=== PATIENT | female | born 1965 | race African-American/Black ===

== ENCOUNTER 2022-02-15 07:15 | Outpatient (CLI) | payer BC, SELFPAY ==
[2022-02-15 07:49] LABS: Anion Gap 2 mmol/L (8-16); Blood Urea Nitrogen 12 mg/dL (7-17); Calcium 10.5 mg/dL (8.4-10.2); Carbon Dioxide 32 mmol/L (22-30); Chloride 106 mmol/L (98-107); Estimated Glomerular Filt Rate > 60; Glucose 110 mg/dL (65-110); Sodium 140 mmol/L (137-145)
== END 2022-02-15 07:16 | disposition home or self-care (01) ==
LOC: ANHSURGERY 07:20
PROVIDERS: Anesthesiology; PCP Internal Medicine; Visit Provider Obstetrics & Gynecology
DX: Z01.812 Encounter for preprocedural laboratory examination (principal); R35.89 Other polyuria
CPT/HCPCS: 36415; 80048

== ENCOUNTER 2022-02-22 02:06 | Day surgery (SDC) | payer BC, SELFPAY ==
[2022-02-13 10:20] VITALS: BMI 56.3
--- NOTE | 2022-02-13 10:51 | PC.NURSE ---
Report to the Outpatient Waiting Room, entrance under the green pavilion located off [facility], at time 0600 on date _02/22/22. OR Time: 0730_. - You and your visitor will be asked a series of questions to screen for COVID 19 for your protection. - Only one visitor is allowed at this time. - The patient visitor is requested to leave or wait in car when not with patient. - A mask is required within the hospital. Patients may have clear liquids (water, carbonated beverages, clear teas, apple juice) until 3 hours prior to surgery with a maximum of 20 ounces. - No food from midnight until time of surgery - Infants may have breast milk until 4 hours before surgery, formula 6 hours prior to surgery. - Children will be allowed to drink immediately following surgery. If applicable, please bring a bottle or sippy cup to assist with drinking. Juice, water, soda, and popsicles are readily available. For infants on formula, please bring formula the day of surgery. Pacifiers are allowed. Take the following medications with a SIP of water the morning of surgery: albuterol, timolol Medications to discontinue per physician vitamin_ Date to take last dose 02/22/22 Patient to hold metformin and lisinopril that morning(usually takes them in the afternoon) Please no make-up, nail sami, hairspray, perfume, deodorant, or body powder the day of surgery. No jewelry (including any body piercings) or valuables the day of surgery, leave them at home. Please take a shower or bath the night before, or the morning of, surgery with an antibacterial soap. Wear comfortable, loose fitting clothing. Children are encouraged to wear pajamas. - Jewelry must be removed prior to entering the operating room. Rings and piercings that are not removed may be cut off. - The hospital will not accept responsibility for valuables. - Please leave all valuables, including medications, at home the day of surgery. If you are going home after surgery, a licensed paratransit driver must drive you home. - NO public transportation without another adult. - We recommend that an adult stay with you for 24 hours following discharge. - We also recommend that you do not drive, make important decision, drink alcoholic beverages, or take any drugs that were not prescribed by your health care provider for at least 24 hours after your discharge time. For Pediatric surgeries, we recommend two adults accompany the child home (only one inside the building at this time). Follow any additional instructions given to you from your surgeon. If you or anyone in your household have experienced Covid symptoms in the past week, please notify your surgeon or the nurse liaison at the phone number below for possible testing. Telephone instructions given to Carie Bartlett and asked if any additional questions and then verbalized understanding. Patient advised to call surgeon office or pre surgery nurse liaison [phone] if any additional questions.
--- NOTE | 2022-02-21 10:16 | P.PNAN_ITS ---
Anes - Initial Pre Proc Eval Procedure: Operation Date: 02/22/22 07:30 Proposed Procedures p Hysteroscopy Dilation and Curettage with Possible Myosure - Richard Guzmán MD Date/Time: 02/21/22 10:16 Surgeon: Richard Guzmán MD Pre Op Diagnosis: post menopausal bleeding Patient Data Age: 56 Gender: F Height: 1.75 m Weight: 173 kg Allergies Allergy/AdvReac Type Severity Reaction Status Date / Time erythromycin base Allergy Mild Hives Verified 02/15/22 10:06 shellfish derived Allergy Mild Swelling Verified 02/22/22 06:08 Tetracyclines Allergy Mild Itching Verified 02/15/22 10:06 aspirin AdvReac Intermediate Unknown Verified 02/22/22 06:08 Penicillins AdvReac Unknown Unknown Verified 02/22/22 06:08 Home Medications Medication Instructions Recorded Confirmed Type albuterol sulfate 90 mcg/actuation 1 puff inhalation Q4H PRN Allergy 01/10/22 02/22/22 History aerosol inhaler (Ventolin HFA) Symptoms furosemide 20 mg tablet 20 mg PO QAM 01/10/22 02/22/22 History lisinopril 10 mg tablet 10 mg PO DAILY 01/10/22 02/22/22 History timolol maleate 0.5 % eye drops 1 drp EACH EYE Q12H 01/10/22 02/22/22 History vitamins A,C,C-vclp-siuncc 14,320 1 cap PO BID 02/13/22 02/22/22 History unit-226 mg-200 unit capsule (PreserVision AREDS) pantoprazole 40 mg tablet,delayed 40 mg PO BID 02/15/22 02/22/22 History release Patient hx anesthesia problems: none Family hx anesthesia problems: none Results Review: All pre-operative results and documents have been reviewed as part of the pre- operative evaluation. [facility] Past Medical History Medical History Arthritis Chronic GERD History of miscarriage Hypertension Morbid obesity with BMI of 50.0-59.9, adult GARY (obstructive sleep apnea) Postmenopausal bleeding Thyroid disorder Surgical History Surgical History H/O breast surgery History of cholecystectomy S/P dilation and curettage S/P removal of parathyroid gland Total knee replacement status [place] teeth extracted Family History Family History Other Cervical cancer Diabetes mellitus Hypertension Social History Social History Smoking status: Never smoker Alcohol intake: never Substance use: never Living arrangements: with family Spiritual care concerns: No Anes - Eval Final PreProcedure Day of Procedure 02/21/22 10:16 Patient weight: super morbidly obese Heart: regular rate and rhythm Lungs: clear to auscultation and normal air movement Airway: Mallampati scale class II Neurological: alert and oriented Last oral intake: >/= 8 hours ASA classification: III Emergent: no Anesthetic plan: proceed Anesthesia type and monitoring: general LMA Results Review: All pre-operative results and documents have been reviewed as part of the pre- operative evaluation. Informed Consent: The patient's anesthetic plan and its attendant risks and benefits were discussed with the patient/family/POA. Questions were solicited and answers provided to the satisfaction of the patient/family/POA.
--- NOTE | 2022-02-21 22:10 | PM.IMHP ---
H&P: HPI History of Present Illness Date/Time: 02/21/22 22:10 Chief Complaint: Postmenopausal bleeding Narrative: Patient is postmenopausal and presented with spotting in September/Oct and has since resolved. Ultrasound in December showed fibroid uterus which she has a known history of fibroids and also showed endometrial cavity distortion possible submucous fibroid. She was recommended for endometrial sampling due to postmenopausal bleeding.. She could not tolerate endometrial biopsy in office and was recommended for D and C hysteroscopy. She has been cleared for surgery by her support services coordinator. She has been informed that if endometrial tissue is abnormal then may be advised on further more extensive procedure. Review of Systems Review of Systems: All systems reviewed & are unremarkable except as noted in HPI and below Constitutional: Constitutional: Reports no additional constitutional complaints Eyes: Eyes: Reports no additional eye complaints Cardiovascular: Cardiovascular: Reports no additional cardiovascular complaints Respiratory: Respiratory: Reports no additional respiratory complaints Gastrointestinal: Gastrointestinal: Reports no additional gastrointestinal complaints Genitourinary: Genitourinary: Reports no additional female genitourinary complaints and Reports as per HPI Integumentary/Breasts: Skin/Breast: Reports system reviewed and no additional complaints, except as docu Neurologic: Reports system reviewed and no additional complaints, except as documented Psychiatric: Psychiatric: Reports no additional psychiatric complaints Hematologic/Lymphatic: Hematologic/Lymphatic: Reports no additional hematologic/lymphatic complaints COUNTS INCLUDE 234 BEDS AT THE [facility] Past Medical History Medical History Arthritis Chronic GERD History of miscarriage Hypertension Morbid obesity with BMI of 50.0-59.9, adult GARY (obstructive sleep apnea) Postmenopausal bleeding Thyroid disorder Surgical History Surgical History H/O breast surgery History of cholecystectomy S/P dilation and curettage S/P removal of parathyroid gland Total knee replacement status [place] teeth extracted Family History Family History Other Cervical cancer Diabetes mellitus Hypertension Social History Social History Smoking status: Never smoker Alcohol intake: never Substance use: never Spiritual care concerns: No Meds Home Medications and Allergies Home Medications Medication Instructions Recorded Confirmed Type albuterol sulfate 90 mcg/actuation 1 puff inhalation Q4H PRN Allergy 01/10/22 02/13/22 History aerosol inhaler (Ventolin HFA) Symptoms furosemide 20 mg tablet 20 mg PO QAM 01/10/22 02/13/22 History lisinopril 10 mg tablet 10 mg PO DAILY 01/10/22 02/13/22 History timolol maleate 0.5 % eye drops 1 drp EACH EYE Q12H 01/10/22 02/13/22 History vitamins A,C,Q-goyx-bkmrxn 14,320 1 cap PO BID 02/13/22 02/13/22 History unit-226 mg-200 unit capsule (PreserVision AREDS) pantoprazole 40 mg tablet,delayed 40 mg PO QAM 02/15/22 History release Allergies Allergy/AdvReac Type Severity Reaction Status Date / Time erythromycin base Allergy Mild Hives Verified 02/15/22 10:06 shellfish derived Allergy Mild Unknown Verified 02/15/22 10:06 Tetracyclines Allergy Mild Itching Verified 02/15/22 10:06 Penicillins AdvReac Unknown Unknown Verified 02/15/22 10:06 Exam Const: General: comfortable and no acute distress Orientation/consciousness: oriented to person, oriented to place and oriented to time Eyes: General: appearance normal, both eyes and all related structures Neck: Neck: normal visual inspection Resp: Effort & Inspection: normal respiratory effort Auscultation: clear to auscultation bilaterally Cardio: Rate:
[2022-02-22 06:14] VITALS: BP 143/70; PULSE 51; RESP 18; TEMP 36.3; O2SAT 100
[2022-02-22] MEDS: ACETAMINOPHEN 500 MG TABLET 1000 MG PO (06:39)
[2022-02-22] MEDS: LACTATED RINGERS 1,000 ML 30 ML IV CONT (06:39)
--- NOTE | 2022-02-22 07:16 | WPDHPUPDATE1 ---
History and Physical Update Update Date/Time: 02/22/22 07:16 History and Physical has been reviewed, including an updated exam of the patient. There are NO changes in the patient's condition. Risks, benefits, and alternatives have been discussed and questions answered. Patient agrees to proceed with procedure.
[2022-02-22] MEDS: ceFAZolin 3 GM/D5W 100 ML 100 ML IVPB (07:26)
[2022-02-22] MEDS: LIDOCAINE HCL 1% LOCAL INJ 20 ML VIAL 10 ML INFILTRATE (07:47)
[2022-02-22 08:05] VITALS: BP 129/79; PULSE 52; RESP 16; O2SAT 98
--- NOTE | 2022-02-22 08:25 | W.PM.PROC2 ---
Procedure Note - Detailed Date of Procedure 02/22/22 Pre-op Diagnosis post menopausal bleeding fibroid uterus Post-op Diagnosis Same Procedure Performed Diagnostic hysteroscopy and dilation and curettage Surgeon Richard Guzmán MD Anesthesia MAC and Local Indications Postmenopausal spotting and bleeding unable to tolerate office endometrial biopsy for endometrial sampling. Findings uterus sound initially to 12 then 6. Cavity atrophic. Scant tissue obtained with curette and endocervical sampling. Description of Procedure After informed consent was obtained patient was taken to the operating room and adequate IV sedation was administered. Attention was turned to the vagina. Speculum was inserted. Single-tooth tenaculum placed on the anterior lip of the cervix. The uterus was sounded initially to 12 cm and a second sound 6cm. The cervix was dilated to an 8 Astudillo dilator. The hysteroscope was inserted into the cavity. The findings were an atrophic appearing uterine cavity. At the mid to right side of cavity there was tunnel appearance possibly from the first sound. No bleeding. No lesion. The hysteroscope was removed. The cavity was curetted and minimal tissue obtained. Tenaculum removed. Hemostasis noted. Sponge count correct. The patient taken to recovery in stable condition. Estimated Blood Loss 5 Drains No Packing No Pathology Yes (endometrial curettings and endocervical curettings) Complications No immediate complications Condition Stable Disposition Same day [facility] Billing Surgery - Charge Forward: Surgery Billing
[2022-02-22 08:35] VITALS: BP 156/82; PULSE 42; RESP 16
[2022-02-22 09:05] VITALS: BP 137/66; PULSE 41; RESP 14
[2022-02-22 09:35] VITALS: BP 112/58; PULSE 40; RESP 16
== END 2022-02-22 09:40 | disposition home or self-care (01) ==
PROVIDERS: PCP Internal Medicine; Visit Provider Obstetrics & Gynecology
PROC: 0U5B8ZZ Destruction of Endometrium, Via Natural or Artificial Opening Endoscopic (ICD-10-PCS; CPT 58563; principal; 2022-02-22 07:30)
DX: N95.0 Postmenopausal bleeding (principal); D25.9 Leiomyoma of uterus, unspecified; K21.9 Gastro-esophageal reflux disease without esophagitis; I10 Essential (primary) hypertension; G47.33 Obstructive sleep apnea (adult) (pediatric); E66.01 Morbid (severe) obesity due to excess calories; Z68.43 Body mass index [BMI] 50.0-59.9, adult; Z96.659 Presence of unspecified artificial knee joint; E07.9 Disorder of thyroid, unspecified
CPT/HCPCS: 58558; 88305; A9270; J0690; J1100; J1885; J2250; J2405; J2704; J3010; J7030; J7120

== ENCOUNTER 2025-02-18 12:48 | Outpatient (CLI) | payer BC, SELFPAY ==
--- NOTE | ~2025-02-18 | US_ITS ---
Pelvic ultrasound. Clinical History: Postmenopausal bleeding Technique: Realtime transabdominal scanning of the pelvis was performed. Color flow Doppler and Doppl er spectral analysis were performed. Findings: The uterus is anteverted, and measures 11.0 x 9.2 x 9.6 cm. The endometrial stripe has a t hickness of 6 mm. Probable calcified fibroid present posteriorly measuring 2.9 cm in diameter. Additi onal calcified fibroid the posterolateral measures 4.4 cm. Interval calcified fibroid measures 2.8 cm . Probable additional anterior fibroid measures 3.0 cm.. Neither ovary seen. No other adnexal mass seen. There is no evidence of free fluid in the cul de sac. Impression: Multiple uterine fibroids, as detailed above. Endometrial stripe is upper limits of normal in thickness. Reviewed, dictated and finalized at location . Impression: Multiple uterine fibroids, as detailed above. Endometrial stripe is upper limits of normal in thickness.
== END 2025-02-18 12:49 | disposition home or self-care (01) ==
PROVIDERS: PCP Internal Medicine; Visit Provider Nurse Practitioner Family
DX: N95.0 Postmenopausal bleeding (principal); D25.9 Leiomyoma of uterus, unspecified
CPT/HCPCS: 76856

== ENCOUNTER 2025-05-22 00:54 | Day surgery (SDC) | payer BC, SELFPAY ==
--- OUTSIDE RECORDS SUMMARY | 2019-04-23 04:41 | XMS_ITS | Continuity of Care Document ---
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 Role Phone Nilam Kenney MD Unavailable Unavailable Allergies, Adverse Reactions, Alerts Substance Reaction Status Criticality amoxicillin Active No Information tetracycline Active No Information erythromycin base Active No Informa tion Medications Medication Instructions Dosage Effective Dates (start - stop) Status Comments tramadol 50 mg tablet take 1 tablet by oral route every 12 hours as needed 50 MG - Active lisinopril 20 mg-hydrochlorothiaz radu 12.5 mg tablet take 1 tablet by oral route every day 1.00 tablet - Active furosemide 20 mg tablet take 1 tablet by oral route every day 20 MG - Active Advance Directives Directive Yes / No Effective Date File Name No Information Encounters Encounter Description Practice Location Reason(s) For Visit Diagnoses Date Provider Providers Copied on Encounter [facility], [address], [place], [place], [id number], tel:[phone] [facility] No Information [facility]. [address] [address], [id number] , . [phone] [facility], [address], [place], [place], [address], tel:[phone] [facility] No Information [facility]. [address], [place], [place], [id number] , . tel:[phone] [facility], [address], [place], [place], [id number], [place] tel:[phone] [facility] Bilateral chronic knee painPain in left kneeOther chronic painPrimary osteoarthritis of both knees [facility] [address] [address], [place], [place], [id number] , [place]. tel: [phone] Referring Provider: Scott Cortez [address], [place], [address] . tel:[phone] Family History Family Member Type Diagnosis Age At Onset No Information Payers Payer name Insurance type Covered libertarian ID Authoriza tion(s) No Information Social History Type Description Quantity Date Captured Comments Alcohol Use Details Unknown Caffeine Use Details Unknown Tobacco Use Status No Information Smoking Status No Information Sex Female Chief Complaint And Reason For Visit No Information Reason For Referral Reason For Referral No Information Plan Of Treatment Date Type Action Status Future Order: Radiology Order X- RAY EXAM OF KNEE, A/P & LAT Bilateral ([id number]), Sent on: Sent History Of Present Illness Encounter Date Complaint History Of Prese nt Illness No Information Functional Status Date Functional Assessmen t No Information Instructions Date Instruction Additional Infor mation No Information Assessments Type Assessment Date No Information Patient Care Teams Name Effective Dates (start - stop) Status Members No Information
[2025-05-11 15:04] VITALS: BMI 50.3
--- NOTE | 2025-05-11 15:05 | PC.NURSE ---
[facility] has started construction of its new state of the art ER which will open Spring 2026. With this, we anticipate parking may be a challenge for some our surgical patients and families. Parking spaces are limited but are available for all Surgical, obstetrics, and ER patients sharing this lot. If you arrive and find you are having a hard time finding a parking space, please note that we understand the challenges, please drive around the hospital and park near Hospital Entrance 1. When you enter this entrance, you can ask a volunteer to direct or take you back to the surgical waiting area to check in. We appreciate everyone?s understanding of these expected challenges while we build for your future. Report to the Outpatient Waiting Room, entrance under the green pavilion located off [facility] [address], at time _0600_ on date _[phone]_. Planned Procedure Time: _0730_.? Time changes happen often and if your time is changed the preop area will call you the afternoon before. - You and your visitor will be asked to self-screen and do not enter if you have any COVID symptoms. Please call surgeon if you need to reschedule. - A mask is optional within the hospital at this time. Patients may have clear liquids (water, carbonated beverages, clear teas, apple juice) until 3 hours prior to surgery with a maximum of 20 ounces. - No food from midnight until time of surgery and no smoking, or chewing tobacco (or any form of nicotine). No chewing gum, candy or mints. Take only the following medications with a SIP of water on the morning of surgery: ___eye drops and if needed may use inhaler.___ DO NOT STOP ANY OF YOUR OTHER PRESCRIPTION MEDICATIONS PRIOR TO SURGERY EXCEPT THE FOLLOWING Hold all vitamins and supplements for 3 days per anesthesiologist. Medications to discontinue per physician Date to take last dose Please no make-up, nail belizean, hairspray, perfume, deodorant, or body powder the day of surgery.? No jewelry (including any body piercings) or valuables the day of surgery, leave them at home.? Please take a shower or bath the night before, or the morning of, surgery with an antibacterial soap.? Wear comfortable, loose fitting clothing.? - Jewelry must be removed prior to entering the operating room.? Rings and piercings that are not removed may be cut off. - The hospital will not accept responsibility for valuables.? - Please leave all valuables, including medications, at home the day of surgery. If you are going home after surgery, a licensed jeep driver must drive you home.? - NO public transportation without another adult if you receive anesthesia. - We recommend that an adult stay with you for 24 hours following discharge. - We also recommend that you do not drive, make important decision, drink alcoholic beverages, or take any drugs that were not prescribed by your health care provider for at least 24 hours after your discharge time. Follow any additional instructions given to you from your surgeon. Telephone instructions given to __Carie___and asked if any additional questions and then verbalized understanding. Patient advised to call surgeon office or pre surgery nurse liaison [phone] if any additional questions.
--- OUTSIDE RECORDS SUMMARY | 2025-05-22 00:58 | XMS_ITS | Encounter Summary ---
Author Organization [facility] Facility Care Team Providers Care Vice President Business Development Name Role Phone Roula Dutton MD Primary Care Provider [phone] Roula Dutton MD Primary Care Provider [phone] Rodrigue Munoz MD Primary Care Provider [phone] Ashli Sosa MD Unavailable [phone] Radhika Hannon MD Primary Care Provider + [phone] Scot Gibson MD Primary Care Provider [phone] Radihka Hannon MD Primary Care Provider + [phone] Encounter Details Date Type Department Care Team (Latest Contact Info) Description 11/24/2015 Orders Only [facility]CON[facility] ProviderAriana MD [address] [place] [id number] Social History Tobacco Use Types Packs/Day Years Used Date Smoking Tobacco: Never Assessed Comments Unknown Sex and Gender Information Value Date Recorded Sex Assigned at Not on file Legal 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 us Historical Provider Final Res ult documented in this encounter Visit Diagnoses Not on filedocumented in this encounter Additional Health Concerns Infection Onset Date Last Indicated Resolved Time COVID: Suspected 03/04/2022 03/04/2022 03/04/2022 1:17 PM CDT COVID: Suspected 03/13/2022 03/13/2022 03/14/2022 3:05 AM CDT documented as of this encounter Care Teams Vice President Business Development Relationship Specialty Start Date End Date Roula Dutton MD [address] [place] [id number] PCP - General 02/08/17 08/09/17 Roula Dutton MD [address] [place] [id number] PCP - General 08/10/17 11/11/17 Rodrigue Munoz MD [address] [place] [id number] PCP - General 11/12/17 03/13/18 Radhika Hannon MD [address] [facility] [address] [place] [address] PCP - General Internal Medicine 03/14/18 10/09/22 Scot Gibson MD [address] [facility] [address] [place] [address] PCP - General Endocrinology Diabetes & Metabolism 10/10/22 08/27/24 Radhika Hannon MD [address] [facility] [address] [place] [address] PCP - General Internal Medicine 08/28/24 Ashli Sosa MD [address] [place] [id number] Referring Physician Obstetrics and Gynecology 01/23/18 documented as of this encounter
--- OUTSIDE RECORDS SUMMARY | 2025-05-22 00:58 | XMS_ITS | Encounter Summary ---
Author Organization [facility] Facility Care Team Providers Care Emt I/99 Name Role Phone Roula Dutton MD Primary Care Provider + [phone] Roula Dutton MD Primary Care Provider + [phone] Rodrigue Munoz MD Primary Care Provider [phone] Ashli Sosa MD Unavailable [phone] Radhika Hannon MD Primary Care Provider +- [phone] Scot Gibson MD Primary Care Provider [phone] Radhika Hannon MD Primary Care Provider + [phone] Encounter Details Date Type Department Care Team (Latest Contact Info) Description 07/31/2015 Orders Only [facility] CLINCONV ProviderAriana MD [address] [place] [address] Social History Tobacco Use Types Packs/Day Years Used Date Smoking Tobacco: Never Assessed Comments Unknown Sex and Gender Information Value Date Recorded Sex Assigned at Not on file 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 us Historical Provider Final Res ult documented in this encounter Visit Diagnoses Not on filedocumented in this encounter Additional Health Concerns Infection Onset Date Last Indicated Resolved Time COVID: Suspected 03/04/2022 03/04/2022 03/04/2022 1:17 PM CDT COVID: Suspected 03/13/2022 03/13/2022 03/14/2022 3:05 AM CDT documented as of this encounter Care Teams Emt I/99 Relationship Specialty Start Date End Date Roula Dutton MD [address] [place] [address] PCP - General 02/08/17 08/09/17 Roula Dutton MD [address] [place] [address] PCP - General 08/10/17 11/11/17 Rodrigue Munoz MD [address] [place] [address] PCP - General 11/12/17 03/13/18 Radhika Hannon MD [address] [facility] [address] [place] [address] PCP - General Internal Medicine 03/14/18 10/09/22 Scot Gibson MD [address] [facility] [address] [place] [address] PCP - General Endocrinology Diabetes & Metabolism 10/10/22 08/27/24 Radhika Hannon MD [address] [facility] [address] [place] [address] PCP - General Internal Medicine 08/28/24 Ashli Sosa MD [address] [place] [address] Referring Physician Obstetrics and Gynecology 01/23/18 documented as of this encounter
--- OUTSIDE RECORDS SUMMARY | 2025-05-22 00:58 | XMS_ITS | Encounter Summary ---
Author Organization [facility] Facility Care Team Providers Care Law Clerk Name Role Phone Roula Dutton MD Primary Care Provider + [phone] Roula Dutton MD Primary Care Provider + [phone] Rodrigue Munoz MD Primary Care Provider [phone] Ashli Sosa MD Unavailable [phone] Radhika Hannon MD Primary Care Provider + [phone] Scot Gibson MD Primary Care Provider [phone] Radhika Hannon MD Primary Care Provider + [phone] Encounter Details Date Type Department Care Team (Latest Contact Info) Description 01/22/2017 Orders Only [facility] CLINCONV ProviderAriana MD [address] [place] [address] Social History Tobacco Use Types Packs/Day Years Used Date Smoking Tobacco: Never Assessed Comments Unknown Sex and Gender Information Value Date Recorded Sex Assigned at Not on file 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 us Historical Provider Final Res ult * PROCEDURE - RESULT (01/22/2017 12:00 AM CDT) Narrative 01/22/2017 12:00 AM CDT Ordered by an unspecified provider. Historical Provider Final Res ult documented in this encounter Visit Diagnoses Not on filedocumented in this encounter Additional Health Concerns Infection Onset Date Last Indicated Resolved Time COVID: Suspected 03/04/2022 03/04/2022 03/04/2022 1:17 PM CDT COVID: Suspected 03/13/2022 03/13/2022 03/14/2022 3:05 AM CDT documented as of this encounter Care Teams Law Clerk Relationship Specialty Start Date End Date Roula Dutton MD [address] [place] [id number] PCP - General 02/08/17 08/09/17 Roula Dutton MD [address] [place] [address] PCP - General 08/10/17 11/11/17 Rodrigue Munoz MD [address] [place] [address] PCP - General 11/12/17 03/13/18 Radhika Hannon MD [address] [place] [address] PCP - General Internal Medicine 03/14/18 10/09/22 Scot Gibson MD [address] [place] [address] PCP - General Endocrinology Diabetes & Metabolism 10/10/22 08/27/24 Radhika Hannon MD [address] [place] [address] PCP - General Internal Medicine 08/28/24 Ashli Sosa MD [address] [place] [address] Referring Physician Obstetrics and Gynecology 01/23/18 documented as of this encounter
--- OUTSIDE RECORDS SUMMARY | 2025-05-22 00:58 | XMS_ITS | Encounter Summary ---
Author Organization [facility] Facility Care Team Providers Care Bench Press Operator Name Role Phone Roula Dutton MD Primary Care Provider + [phone] Roula Dutton MD Primary Care Provider + [phone] Rodrigue Munoz MD Primary Care Provider [phone] Ashli Sosa MD Unavailable [phone] Radhika Hannon MD Primary Care Provider + [phone] Scot Gibson MD Primary Care Provider [phone] Radhika Hannon MD Primary Care Provider + [phone] Encounter Details Date Type Department Care Team (Latest Contact Info) Description 03/14/2016 Orders Only [facility] CLINCONV ProviderAriana MD [address] [place] [address] Social History Tobacco Use Types Packs/Day Years Used Date Smoking Tobacco: Never Assessed Comments Unknown Sex and Gender Information Value Date Recorded Sex Assigned at Not on file 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 us Historical Provider [facility] RASH[facility] ADRIAN Final Result documented in this encounter Visit Diagnoses Not on filedocumented in this encounter Additional Health Concerns Infection Onset Date Last Indicated Resolved Time COVID: Suspected 03/04/2022 03/04/2022 03/04/2022 1:17 PM CDT COVID: Suspected 03/13/2022 03/13/2022 03/14/2022 3:05 AM CDT documented as of this encounter Care Teams Bench Press Operator Relationship Specialty Start Date End Date Roula Dutton MD [address] [place] [address] PCP - General 02/08/17 08/09/17 Roula Dutton MD [address] [place] [address] [id number] PCP - General 08/10/17 11/11/17 Rodrigue Munoz MD [address] [place] [address] PCP - General 11/12/17 03/13/18 Radhika Hannon MD [address] [place] [address] PCP - General Internal Medicine 03/14/18 10/09/22 Scot Gibson MD [address] [place] [address] PCP - General Endocrinology Diabetes & Metabolism 10/10/22 08/27/24 Radhika Hannon MD [address] [facility] [address] [place] [address] PCP - General Internal Medicine 08/28/24 Ashli Sosa MD [address] [place] [address] Referring Physician Obstetrics and Gynecology 01/23/18 documented as of this encounter
--- OUTSIDE RECORDS SUMMARY | 2025-05-22 00:58 | XMS_ITS | Data Portability ---
Author Organization [facility], [employer] Address [address] [address] Care Team Providers Care Adhesive Bandage Making Operator Name Role Phone RADHIKA HODGES Primary Care Provider Assessment Encounter Date Assessment Date Assessment LastModified by Organization Details LastModified Time 01/30/2024 01/30/2024 Patient presented for follow up. Studies ordered as below. Discussed plan with patient/careg iver, who expressed understanding . Follow up as noted below. Not available 01/30/2024 11:12:00 05/21/2024 05/21/2024 Patient presented for follow up. Studies ordered as below. Discussed plan with patient/careg iver, who expressed understanding . Follow up as noted below. Not available 05/21/2024 17:37:29 08/27/2024 08/27/2024 Patient presented for follow up. Studies ordered as below. Discussed plan with patient/careg iver, who expressed understanding . Follow up as noted below. Not available 08/27/2024 17:25:56 02/19/2025 02/19/2025 Patient presented for follow up. Studies ordered as below. Discussed plan with patient/careg iver, who expressed understanding . Follow up as noted below. Not available 02/19/2025 16:23:54 Plan of Treatment Reminders Order Date Submit Date Provider Last Modified By Organization Details Last Modified Time Details Appointments ESTABLISH ED PATIENT 15 2024 03:00P Darren Hodges MD Not available Not available Not available Lab TSH + free T4, serum 2024 025 [facility], [address] [facility], [place], [address], 02/24/2025 18:41:49 HbA1c (hemoglob in A1c), blood 2024 025 [facility], [address] [facility], [place], [address], 02/24/2025 14:05:45 C-peptide , serum 2024 025 [facility], [address] [facility], [place], [address], 02/24/2025 18:41:49 PTH (parathyr oid hormone), intact, serum or plasma 2024 025 [facility], [address] [place], [address], 02/24/2025 18:41:49 phosphoru s, serum or plasma 2024 025 [facility], [address] [place], [address], 02/26/2025 04:07:55 magnesium , QN, serum or plasma 2024 025 [facility], [address] [place], [address], 02/26/2025 04:07:55 CMP, serum or plasma 2024 025 [facility], [address] [place], [address], 02/24/2025 18:41:49 CBC w/ auto diff 2024 025 [facility], [address] [place], [address], 02/24/2025 18:41:49 C-reactiv e protein, quantitat elsie, serum or plasma 2024 025 [facility], [address] [facility], [place], [address], 02/24/2025 18:41:49 ESR (erythroc yte sedimenta tion rate), blood 2024 025 [facility], [address] [facility], [place], [address], 02/24/2025 18:41:49 OTIS (antinucl ear antibodie s) panel, serum 2024 025 [facility], [address] [facility], [place], [address], 02/25/2025 14:53:46 vitamin D, 25-hydrox y, total, serum 2024 025 [facility], [address] [facility], [place], [address], 02/26/2025 04:07:55 CMP, serum or plasma 2024 025 [facility], [address] [facility], [place], [address], 08/28/2024 14:12:11 CBC w/ auto diff 2024 025 [facility], [address] [facility], [place], [address], 08/28/2024 14:12:10 vitamin D, 25-hydrox y, total, serum [email or web address], [address] [facility], [place], [address], 12/03/2024 11:11:05 PTH (parathyr oid hormone), intact, serum or plasma 2024 025 [facility], [address] [facility], [place], [address], 08/28/2024 14:12:12 HIV (1+2) Ab screen, serum 2023 [facility] [employer] [facility], [address] [facility], [place], [address], 05/21/2024 18:25:27 PTH (parathyr oid hormone), intact, serum or plasma 2023 [facility], [address] [facility], [place], [address], 06/04/2024 06:18:42 phosphoru s, serum or plasma 2023 [facility] [employer] [facility], [address] [facility], [place], [address], 06/04/2024 06:18:41 TSH + free T4, serum [address] [employer] [facility], [address] [facility], [place], [address], 12/04/2024 19:21:11 CMP, serum or plasma 2023 [facility] [employer] [facility], [address] [facility], [place], [address], 06/04/2024 06:18:39 CBC w/ auto diff 2023 [facility] [employer] [facility], [address] [facility], [place], [address], 06/04/2024 06:18:38 lipid panel w/ direct LDL, serum [address] [employer] [facility], [address] [facility], [place], [address], 12/04/2024 19:21:12 vitamin D, 25-hydrox y, total, serum [address] [employer] [facility], [address] [facility], [place], [address], 12/04/2024 19:21:12 urinalysi s, dipstick 2023 024 CASEY [facility], [facility], [address] [facility] , [address], [place], [address], 01/30/2024 12:25:51 Referral cardiolog ist referral 2024 025 CASEY Mason MD, [address] [place], [address], 05/20/2025 04:43:24 gastroent erologist referral 2024 025 LORENZO Hill MD, [address], [address], [place], [address], 02/19/2025 17:07:36 dermatolo gist referral 2024 025 LORENZO [facility], [address] [facility] , [place], [address], 02/19/2025 17:19:16 pulmonolo gist referral 2024 025 [email or web address] Pedro Luis Contreras, [address] [facility] , [address], [place], [address], 12/03/2024 11:11:22 endocrino logy referral 2023 024 [email or web address] , [address] [place], [address], 12/04/2024 19:21:26 gynecolog ist referral 2023 024 [email or web address] Ruthie Medley MD, [address], [address], [place], [address], 12/04/2024 19:21:25 Procedures None recorded. Surgeries None recorded. Imaging MAMMO, screening , digital, bilateral 2024 025 [facility] Centralized Scheduling, Centralized Scheduling, [address] [facility] , [place], [address], 03/05/2025 04:10:26 US, thyroid 2024 025 CASEY [facility] ([facility]), [address], [address], [place], [address], 03/13/2025 10:34:36 XR, hand, 3 or more view 2024 025 CASEY [facility] ([facility]), [address], [address], [place], [address], 02/25/2025 11:45:00 electroca rdiogram 2024 025 [facility], [address] [facility] , [address], [place], [address], 08/28/2024 09:55:17 XR, foot, 3 or more view 2023 024 [email or web address] ([facility]), [address], [address], [place], [address], 12/04/2024 19:21:11 US, thyroid 2023 024 [facility], [facility], [place], [address], 03/04/2024 16:52:51 XR, chest, 2 view 2023 024 [email or web address] [facility], [facility], [place], [address], 12/04/2024 19:21:11 XR, foot, 3 or more view 2023 024 [email or web address] ([facility]), [address], [address], [place], [address], 12/04/2024 19:21:11 Medication Orders Zepbound 12.5 mg/0.5 mL subcutane ous pen injector 2024 025 [id number], [address] [place], [place], [id number], 03/21/2025 08:14:44 losartan 50 mg tablet 2024 025 [facility]31359, [address] [place], [place], [id number], 08/27/2024 18:07:48 Zepbound 10 mg/0.5 mL subcutane ous pen injector 2023 024 [facility]85084, [address] [place], [place], [id number], 02/19/2025 16:50:46 meloxicam 7.5 mg tablet 2023 024 [facility] #64442, [address] [place], [place], [id number], 05/21/2024 18:25:08 Zepbound 5 mg/0.5 mL subcutane ous pen injector 2023 024 [facility] #60010, [address] [place], [place], [id number], 03/16/2024 16:40:23 Airsupra 90 mcg-80 mcg/actua tion HFA aerosol inhaler 2023 024 [facility] #91290, [address] [place], [place], [id number], 07/25/2024 16:16:28 Diflucan 100 mg tablet 2023 024 [facility] #[id number], [address] [facility] [place], [id number], 02/12/2024 15:09:55 Patient TargetsNo targets recorded. Patient Instructions Encounter Date Encounter Id Patient Instructions Last Modified By Organization Details Last Modified Time 01/30/2024 [id number] painful urinatio n (dysuria): care instructions mshenouda Not available 01/30/2024 12:16:16 plantar fasciitis: exercises mshenouda Not available 01/30/2024 12:16:16 02/18/2024 [id number] thyroid nodules: care instructions mshenouda Not available 02/18/2024 18:25:19 mammogram: about this test mshenouda Not available 02/18/2024 18:25:18 cough: care instructions mshenouda Not available 02/18/2024 18:25:19 Core Needle Breast Biopsy: About This Test mshenouda Not available 02/18/2024 18:25:18 body mass index: care instructions mshenouda Not available 02/18/2024 18:25:19 learning about healthy weight mshenouda Not available 02/18/2024 18:25:18 05/21/2024 [id number] mammogram: about this test mshenouda Not available 05/21/2024 18:25:01 thyroid nodules: care instructions mshenouda Not available 05/21/2024 18:25:01 body mass index: care instructions mshenouda Not available 05/21/2024 18:25:01 learning about healthy weight mshenouda Not available 05/21/2024 18:25:01 asthma in adults : care instructions mshenouda Not available 05/21/2024 18:25:02 learning about asthma mshenouda Not available 05/21/2024 18:25:02 08/27/2024 [id number] knee arthritis: care instructions mshenouda Not available 08/27/2024 18:07:42 thyroid nodules: care instructions mshenouda Not available 08/27/2024 18:07:41 mammogram: about this test mshenouda Not available 08/27/2024 18:07:41 back care and preventing injuries: care instructions mshenouda Not available 08/27/2024 18:07:41 getting back to normal after low back pain: care instructions mshenouda Not available 08/27/2024 18:07:41 learning about relief for back pain mshenouda Not available 08/27/2024 18:07:41 body mass index: care instructions mshenouda Not available 08/27/2024 18:07:41 learning about healthy weight mshenouda Not available 08/27/2024 18:07:41 02/19/2025 [id number] mammogram: about this test mshenouda Not available 02/19/2025 17:05:25 knee arthritis: care instructions mshenouda Not available 02/19/2025 17:05:24 thyroid nodules: care instructions mshenouda Not available 02/19/2025 17:05:25 Core Needle Breast Biopsy: About This Test mshenouda Not available 02/19/2025 17:05:25 body mass index: care instructions mshenouda Not available 02/19/2025 17:05:24 learning about healthy weight mshenouda Not available 02/19/2025 17:05:24 asthma in adults : care instructions mshenouda Not available 02/19/2025 17:05:25 learning about asthma mshenouda Not available 02/19/2025 17:05:25 spirometry testing* CASEY Not available 02/19/2025 18:39:58 dry eyes: care instructions mshenouda Not available 02/19/2025 17:05:25 uterine fibroids : care instructions mshenouda Not available 02/19/2025 17:05:25 living will mshenouda Not available 10/2024 17:03:38 Reason for Referral Cad Application Support Specialist Referral for Va ginal irritation Referring Physician: Radhika Hodges, Internal Medicine, Encounter Date: 01/30/2024 Endocrinology Referral for P arathyroid adenoma Referring Physician: Radhika Hodges, Internal Medicine, Encounter Date: 02/18/2024 Inclinometer Tester Referral for O bstructive sleep apnea of adult Referring Physician: Radhika Hodges, Internal Medicine, Encounter Date: 08/27/2024 Press Assistant Referral for El ectrocardiogram abnormal Referring Physician: Radhika Hodges Internal Medicine, Encounter Date: 02/19/2025 Loader Demolder Referral for P igmented skin lesion Referring Physician: Radhika Hodges, Internal Medicine, Encounter Date: 02/19/2025 Video Producer Referral for Rectal pain Referring Physician: Radhika Hodges, Internal Medicine, Encounter Date: 02/19/2025 Results Created Date Observation Date Name Description Value Unit Range Abnormal Flag Note LastModifiedBy Organization Detail LastModifiedTime 01/30/20 24 01/30/2024 urina lysis , dipst ick Leukocytes Negati ve Not Available [address], [place], [address], 01/29/2024 13:14:55 01/30/20 24 01/30/2024 urina lysis , dipst ick Nitrite negati ve Not Available [address] [place], [place], [address], 01/29/2024 13:14:55 01/30/20 24 01/30/2024 urina lysis , dipst ick Urobilinogen .2 Not Available [address] [place], [place], [address], 01/29/2024 13:14:55 01/30/20 24 01/30/2024 urina lysis , dipst ick Protein Trace Not Available [address] [place], [place], [address], 01/29/2024 13:14:55 01/30/20 24 01/30/2024 urina lysis , dipst ick pH 5.0 Not Available [address] [place], [place], [address], 01/29/2024 13:14:55 01/30/20 24 01/30/2024 urina lysis , dipst ick Blood Negati ve Not Available [address], [place], [address], 01/29/2024 13:14:55 01/30/20 24 01/30/2024 urina lysis , dipst ick Specific Rodman 1.025 Not Available [address], [place], [address], 01/29/2024 13:14:55 01/30/20 24 01/30/2024 urina lysis , dipst ick Ketone Negati ve Not Available [address], [place], [address], 01/29/2024 13:14:55 01/30/20 24 01/30/2024 urina lysis , dipst ick Bilirubin Negati ve Not Available [address] [place], [place], [address], 01/29/2024 13:14:55 01/30/20 24 01/30/2024 urina lysis , dipst ick Glucose Negati ve Not Available [address], [place], [address], 01/29/2024 13:14:55 01/30/20 24 01/30/2024 urina lysis , dipst ick Appearance Cloudy Not Available [address], [place], [address], 01/29/2024 13:14:55 01/30/20 24 01/30/2024 urina lysis , dipst ick Color Yellow Not Available [address], [place], [address], 01/29/2024 13:14:55 01/30/20 24 01/30/2024 urina lysis , dipst ick Leukocytes Negati ve Not Available [address] [place], [place], [address], 01/30/2024 12:09:07 01/30/20 24 01/30/2024 urina lysis , dipst ick Nitrite negati ve Not Available [address] [place], [place], [address], 01/30/2024 12:09:07 01/30/20 24 01/30/2024 urina lysis , dipst ick Urobilinogen .2 Not Available [address] [place], [place], [address], 01/30/2024 12:09:07 01/30/20 24 01/30/2024 urina lysis , dipst ick Protein Trace Not Available [address], [place], [address], 01/30/2024 12:09:07 01/30/20 24 01/30/2024 urina lysis , dipst ick pH 5.0 Not Available [address] [place], [place], [address], 01/30/2024 12:09:07 01/30/20 24 01/30/2024 urina lysis , dipst ick Blood Negati ve Not Available [address], [place], [address], 01/30/2024 12:09:07 01/30/20 24 01/30/2024 urina lysis , dipst ick Specific Rodman 1.025 Not Available [address] [place], [place], [address], 01/30/2024 12:09:07 01/30/20 24 01/30/2024 urina lysis , dipst ick Ketone Negati ve Not Available [address] [place], [place], [address], 01/30/2024 12:09:07 01/30/20 24 01/30/2024 urina lysis , dipst ick Bilirubin Negati ve Not Available [address], [place], [address], 01/30/2024 12:09:07 01/30/20 24 01/30/2024 urina lysis , dipst ick Glucose Negati ve Not Available [address] [place], [place], [address], 01/30/2024 12:09:07 01/30/20 24 01/30/2024 urina lysis , dipst ick Appearance Cloudy Not Available [address], [place], [address], 01/30/2024 12:09:07 01/30/20 24 01/30/2024 urina lysis , dipst ick Color Yellow Not Available [address], [place], [address], 01/30/2024 12:09:07 06/02/2006/02/2024 CBC WITH AUTO- DIFFE RENTI AL WBC 3.9 10*3/ uL 3.4-10 .8 Not Available [facility] [address], [place], [address], 06/04/2024 06:18:38 06/02/2006/02/2024 CBC WITH AUTO- DIFFE RENTI AL RBC 4.79 10*6/ uL 3.80-5 .30 Not Available [facility] [address], [place], [address], 06/04/2024 06:18:38 06/02/2006/02/2024 CBC WITH AUTO- DIFFE RENTI AL HGB 13.3 g/dL 11.1-1 5.9 Not Available [facility] [address], [place], [address], 06/04/2024 06:18:38 06/02/2006/02/2024 CBC WITH AUTO- DIFFE RENTI AL HCT 43.1 % 34.0-4 6.6 Not Available [facility] [address], [place], [address], 06/04/2024 06:18:38 06/02/2006/02/2024 CBC WITH AUTO- DIFFE RENTI AL MCV 90 fL 79-97 Not Available [facility] [address], [place], [address], 06/04/2024 06:18:38 06/02/2006/02/2024 CBC WITH AUTO- DIFFE RENTI AL MCH 27.8 pg 26.6-3 3.0 Not Available [facility] [address] [facility] [address], [place], [address], 06/04/2024 06:18:38 06/02/2006/02/2024 CBC WITH AUTO- DIFFE RENTI AL MCHC 30.9 g/dL 31.5-3 5.7 low Not Available [facility] [address], [place], [address], 06/04/2024 06:18:38 06/02/2006/02/2024 CBC WITH AUTO- DIFFE RENTI AL RDW 15.7 % 11.5-1 4.5 high Not Available [facility] [address], [place], [address], 06/04/2024 06:18:38 06/02/20 24 06/02/2024 CBC WITH AUTO- DIFFE RENTI AL platelets 182 10*3/ uL 150-40 0 Large plate let prese nt. Plate lets Appea r Adequ ate Not Available [facility] [address] [facility] [address], [place], [address], 06/04/2024 06:18:38 06/02/2006/02/2024 CBC WITH AUTO- DIFFE RENTI AL MPV 14 fL 9-13 high Not Available [facility] [address] [facility] [address], [place], [address], 06/04/2024 06:18:38 06/02/2006/02/2024 CBC WITH AUTO- DIFFE RENTI AL neutrophils 46.7 % 40.0-7 4.0 Not Available [facility] [address] [facility] [address], [place], [address], 06/04/2024 06:18:38 06/02/2006/02/2024 CBC WITH AUTO- DIFFE RENTI AL absolute neutrophils 1.83 10*3/ uL 1.40-7 .00 Not Available [facility] [address] [facility] [address], [place], [address], 06/04/2024 06:18:38 06/02/2006/02/2024 CBC WITH AUTO- DIFFE RENTI AL lymphocytes 42.2 % 14.0-4 6.0 Not Available [facility] [address] [facility] [address], [place], [address], 06/04/2024 06:18:38 06/02/2006/02/2024 CBC WITH AUTO- DIFFE RENTI AL absolute lymphocytes 1.65 10*3/ uL 0.70-3 .10 Not Available [facility] [address] [facility] [address], [place], [address], 06/04/2024 06:18:38 06/02/20 24 06/02/2024 CBC WITH AUTO- DIFFE RENTI AL monocytes 7.4 % 4.0-12 .0 Not Available [facility] [address] [facility] [address], [place], [address], 06/04/2024 06:18:38 06/02/2006/02/2024 CBC WITH AUTO- DIFFE RENTI AL absolute monocytes 0.29 10*3/ uL 0.10-0 .90 Not Available [facility] [address] [facility] [address], [place], [address], 06/04/2024 06:18:38 06/02/2006/02/2024 CBC WITH AUTO- DIFFE RENTI AL eosinophils 2.6 % 0.0-5. 0 Not Available [facility] [address] [facility] [address], [place], [address], 06/04/2024 06:18:38 06/02/2006/02/2024 CBC WITH AUTO- DIFFE RENTI AL absolute eosinophils 0.10 10*3/ uL 0.00-0 .40 Not Available [facility] [address] [facility] [address], [place], [address], 06/04/2024 06:18:38 06/02/2006/02/2024 CBC WITH AUTO- DIFFE RENTI AL basophils 0.8 % 0.0-3. 0 Not Available [facility] [address] [facility] [address], [place], [address], 06/04/2024 06:18:38 06/02/2006/02/2024 CBC WITH AUTO- DIFFE RENTI AL absolute basophils 0.03 10*3/ uL 0.00-0 .20 Not Available [facility] [address] [facility] [address], [place], [address], 06/04/2024 06:18:38 06/02/2006/02/2024 CBC WITH AUTO- DIFFE RENTI AL imm. gran. 0.3 % 0.0-2. 0 Not Available [facility] [address] [facility] [address], [place], [address], 06/04/2024 06:18:38 06/02/2006/02/2024 CBC WITH AUTO- DIFFE RENTI AL abs. imm. gran. 0.01 10*3/ uL 0.00-0 .10 Not Available [facility] [address] [facility] [address], [place], [address], 06/04/2024 06:18:38 06/02/2006/02/2024 COMPR EHENS ELSIE METAB OLIC PANEL sodium 143 mmol/ L 134-14 4 Not Available [facility] [address] [facility] [address], [place], [address], 06/04/2024 06:18:39 06/02/2006/02/2024 COMPR EHENS ELSIE METAB OLIC PANEL potassium 4.5 mmol/ L 3.5-5. 2 Not Available [facility] [address] [facility] [address], [place], [address], 06/04/2024 06:18:39 06/02/2006/02/2024 COMPR EHENS ELSIE METAB OLIC PANEL chloride 106 mmol/ L 98-107 Not Available [facility] [address] [facility] [address], [place], [address], 06/04/2024 06:18:39 06/02/2006/02/2024 COMPR EHENS ELSIE METAB OLIC PANEL carbon dioxide (co2) 28.0 mmol/ L 18.0-2 9.0 Not Available [facility] [address] [facility] [address], [place], [address], 06/04/2024 06:18:39 06/02/2006/02/2024 COMPR EHENS ELSIE METAB OLIC PANEL glucose 79 mg/dL 65-99 Mari l Fasti n - 99 mg/dL Impai red Fasti n - 125 mg/dL Diagn ostic of Diabe tae: => 126 mg/dL [facility], 2008 Not Available [facility] [address], [place], [address], 06/04/2024 06:18:39 06/02/2006/02/2024 COMPR EHENS ELSIE METAB OLIC PANEL urea nitrogen (BUN) 17 mg/dL 6-20 Not Available [facility] [address] [facility] [address], [place], [address], 06/04/2024 06:18:39 06/02/2006/02/2024 COMPR EHENS ELSIE METAB OLIC PANEL creatinine 0.71 mg/dL 0.57-1 .00 Not Available [facility] [address] [facility] [address], [place], [address], 06/04/2024 06:18:39 06/02/2006/02/2024 COMPR EHENS ELSIE METAB OLIC PANEL eGFR 99 mL/mi nute/ 1.73_ m2 >59 MDRD Study Equat ion: The calcu lated GFR is NOT appli cable for pedia tric (< 18 years old) and > 70 year old patie nts and patie nts that are NOT of [place] . Not Available [facility] [address], [place], [address], 06/04/2024 06:18:39 06/02/2006/02/2024 COMPR EHENS ELSIE METAB OLIC PANEL calcium 11.0 mg/dL 8.7-10 .2 high Not Available [facility] [address] [facility] [address], [place], [address], 06/04/2024 06:18:39 06/02/2006/02/2024 COMPR EHENS ELSIE METAB OLIC PANEL protein, total 7.0 gm/dL 6.4-8. 3 Not Available [facility] [address] [facility] [address], [place], [address], 06/04/2024 06:18:39 06/02/20 24 06/02/2024 COMPR EHENS ELSIE METAB OLIC PANEL albumin 4.3 gm/dL 3.5-5. 2 Not Available [facility] [facility] [address] [facility] [address], [place], [address], 06/04/2024 06:18:39 06/02/20 24 06/02/2024 COMPR EHENS ELSIE METAB OLIC PANEL bilirubin, total 0.50 mg/dL 0.00-1 .20 Not Available [facility] [address] [facility] [address], [place], [address], 06/04/2024 06:18:39 06/02/2006/02/2024 COMPR EHENS ELSIE METAB OLIC PANEL alkaline phosphatase (ALP) 121 U/L 39-117 high Not Available [facility] [address] [facility] [address], [place], [address], 06/04/2024 06:18:39 06/02/2006/02/2024 COMPR EHENS ELSIE METAB OLIC PANEL aspartate aminotransfe rase (AST) 15 U/L 0-32 Not Available [facility] [address] [facility] [address], [place], [address], 06/04/2024 06:18:39 06/02/2006/02/2024 COMPR EHENS ELSIE METAB OLIC PANEL alanine aminotransfe rase (ALT) 14 U/L 0-33 Not Available [facility] [address] [facility] [address], [place], [address], 06/04/2024 06:18:39 06/02/2006/02/2024 COMPR EHENS ELSIE METAB OLIC PANEL A/G ratio (calculated) 1.6 ratio 1.0-2. 7 Not Available [facility] [address] [facility] [address], [place], [address], 06/04/2024 06:18:39 06/02/2006/02/2024 COMPR EHENS ELSIE METAB OLIC PANEL globulin (calculated) 2.7 gm/dL 1.5-3. 8 Not Available [facility] [address] [facility] [address], [place], [address], 06/04/2024 06:18:39 06/02/20 24 06/02/2024 COMPR EHENS ELSIE METAB OLIC PANEL BUN/creatini ne ratio (calculated) 23.9 ratio 8.0-20 .0 high Not Available [facility] [address] [facility] [address], [place], [address], 06/04/2024 06:18:39 06/02/2006/02/2024 COMPR EHENS ELSIE METAB OLIC PANEL serum hemolysis index NORMAL index normal Not Available [facility] [address] [facility] [address], [place], [address], 06/04/2024 06:18:39 06/02/2006/02/2024 FREE T4 thyroxine (T4), free 1.06 NG/dL 0.82-1 .77 Not Available [facility] [address] [facility] [address], [place], [address], 06/04/2024 06:18:40 06/02/2006/02/2024 LIPID PANEL W/ CALC. LDL cholesterol, total 155 mg/dL 100-19 9 Not Available [facility] [address] [facility] [address], [place], [address], 06/04/2024 06:18:41 06/02/20 24 06/02/2024 LIPID PANEL W/ CALC. LDL HDL cholesterol 50 mg/dL =>40 Not Available [facility] [address] [facility] [address], [place], [address], 06/04/2024 06:18:41 06/02/20 24 06/02/2024 LIPID PANEL W/ CALC. LDL LDL cholesterol (calculated) 89 mg/dL 0-99 Not Available [facility] [address] [facility] [address], [place], [address], 06/04/2024 06:18:41 06/02/2006/02/2024 LIPID PANEL W/ CALC. LDL triglyceride s 78 mg/dL 50-149 Not Available [facility] [address] [facility] [address], [place], [address], 06/04/2024 06:18:41 06/02/20 24 06/02/2024 LIPID PANEL W/ CALC. LDL chol/HDL ratio (calculated) 3.10 ratio 0.00-5 .00 Not Available [facility] [address] [facility] [address], [place], [address], 06/04/2024 06:18:41 06/02/20 24 06/02/2024 LIPID PANEL W/ CALC. LDL VLDL cholesterol (calculated) 16 mg/dL 5-40 Not Available [facility] [address] [facility] [address], [place], [address], 06/04/2024 06:18:41 06/02/2006/02/2024 PHOSP HOROU S phosphorous 2.9 mg/dL 2.5-4. 5 Not Available [facility] [address] [facility] [address], [place], [address], 06/04/2024 06:18:41 06/02/2006/02/2024 PARAT HYROI D HORMO NE (PTH) , INTAC T parathyroid hormone (PTH), intact 114.3 pg/mL 15.0-6 5.0 high Not Available [facility] [address] [facility] [address], [place], [address], 06/04/2024 06:18:42 06/02/2006/02/2024 THYRO ID-ST IM. HORMO NE (TSH) , HIGH- SENSI TIVE thyroid-stim . hormone (TSH), hs 2.92 uIU/m L 0.27-4 .20 Not Available [facility] [address] [facility] [address], [place], [address], 06/04/2024 06:18:42 06/02/20 24 06/02/2024 VITAM IN D, 25-HY DROXY TOTAL vitamin D, total 16.7 NG/mL 30.0-1 00.0 low The Vitam in D Assay formu latio n has been updat ed to offer direc t trace abili ty to ID-LC -MS/M S Refer ence Measu remen t Proce dure along with a reduc tion in bioti n inter feren ce. Defic ient: < 20 ng/mL Insuf ficie nt: 21 - 29 ng/mL Suffi cient : 30 - 100 ng/mL Poten tial Intox icati on: > 100 ng/mL Not Available [facility] [address] [facility] [address], [place], [address], 06/04/2024 06:18:43 06/02/20 24 06/04/2024 HIV P24 ANTIG EN/AN TIBOD Y WITH REFLE X TO CONFI RMATI ON HIV Ab/P24 Ag screen NON REACTI VE non reacti ve normal HIV-1 /HIV- 2 antib odies and HIV-1 p24 antig en were NOT detec lynne. There is no labor atory evide nce of HIV infec tion. HIV Negat elsie Not Available [facility] [address] [facility] [address], [place], [address], 06/04/2024 06:18:43 08/27/1908/27/2024 CBC WITH AUTO- DIFFE RENTI AL WBC 5.0 10*3/ uL 3.4-10 .8 Not Available [facility] [address] [facility] [address], [place], [address], 08/28/2024 14:12:10 08/27/19 25 08/27/2024 CBC WITH AUTO- DIFFE RENTI AL RBC 4.74 10*6/ uL 3.80-5 .30 Not Available [facility] [address], [place], [address], 08/28/2024 14:12:10 08/27/1908/27/2024 CBC WITH AUTO- DIFFE RENTI AL HGB 13.2 g/dL 11.1-1 5.9 Not Available [facility] [address], [place], [address], 08/28/2024 14:12:10 08/27/1908/27/2024 CBC WITH AUTO- DIFFE RENTI AL HCT 41.8 % 34.0-4 6.6 Not Available [facility] [address], [place], [address], 08/28/2024 14:12:10 08/27/1908/27/2024 CBC WITH AUTO- DIFFE RENTI AL MCV 88 fL 79-97 Not Available [facility] [address], [place], [address], 08/28/2024 14:12:10 08/27/1908/27/2024 CBC WITH AUTO- DIFFE RENTI AL MCH 27.8 pg 26.6-3 3.0 Not Available [facility] [address], [place], [address], 08/28/2024 14:12:10 08/27/19 25 08/27/2024 CBC WITH AUTO- DIFFE RENTI AL MCHC 31.6 g/dL 31.5-3 5.7 Not Available [facility] [address], [place], [address], 08/28/2024 14:12:10 08/27/19 25 08/27/2024 CBC WITH AUTO- DIFFE RENTI AL RDW 14.5 % 11.5-1 4.5 Not Available [facility] [address] [facility] [facility] [address], [place], [address], 08/28/2024 14:12:10 08/27/19 25 08/27/2024 CBC WITH AUTO- DIFFE RENTI AL platelets 192 10*3/ uL 150-40 0 Not Available [facility] [address] [facility] [address], [place], [address], 08/28/2024 14:12:10 08/27/1908/27/2024 CBC WITH AUTO- DIFFE RENTI AL MPV 13 fL 9-13 Not Available [facility] [address] [facility] [address], [place], [address], 08/28/2024 14:12:10 08/27/1908/27/2024 CBC WITH AUTO- DIFFE RENTI AL neutrophils 39.4 % 40.0-7 4.0 low Not Available [facility] [address] [facility] [address], [place], [address], 08/28/2024 14:12:10 08/27/19 25 08/27/2024 CBC WITH AUTO- DIFFE RENTI AL absolute neutrophils 1.96 10*3/ uL 1.40-7 .00 Not Available [facility] [address] [facility] [address], [place], [address], 08/28/2024 14:12:10 08/27/19 25 08/27/2024 CBC WITH AUTO- DIFFE RENTI AL lymphocytes 46.2 % 14.0-4 6.0 high Not Available [facility] [address] [facility] [address], [place], [address], 08/28/2024 14:12:10 08/27/19 25 08/27/2024 CBC WITH AUTO- DIFFE RENTI AL absolute lymphocytes 2.30 10*3/ uL 0.70-3 .10 Not Available [facility] [address] [place] [address] [address], [place], [address], 08/28/2024 14:12:10 08/27/19 25 08/27/2024 CBC WITH AUTO- DIFFE RENTI AL monocytes 8.2 % 4.0-12 .0 Not Available [facility] [address] [facility] [address], [place], [address], 08/28/2024 14:12:10 08/27/1908/27/2024 CBC WITH AUTO- DIFFE RENTI AL absolute monocytes 0.41 10*3/ uL 0.10-0 .90 Not Available [facility] [address] [facility] [address], [place], [address], 08/28/2024 14:12:10 08/27/1908/27/2024 CBC WITH AUTO- DIFFE RENTI AL eosinophils 3.6 % 0.0-5. 0 Not Available [facility] [address] [facility] [address], [place], [address], 08/28/2024 14:12:10 08/27/1908/27/2024 CBC WITH AUTO- DIFFE RENTI AL absolute eosinophils 0.18 10*3/ uL 0.00-0 .40 Not Available [facility] [address] [facility] [address], [place], [address], 08/28/2024 14:12:10 08/27/19 25 08/27/2024 CBC WITH AUTO- DIFFE RENTI AL basophils 1.0 % 0.0-3. 0 Not Available [facility] [address] [facility] [address], [place], [address], 08/28/2024 14:12:10 08/27/19 25 08/27/2024 CBC WITH AUTO- DIFFE RENTI AL absolute basophils 0.05 10*3/ uL 0.00-0 .20 Not Available [facility] [address] [facility] [address], [place], [address], 08/28/2024 14:12:10 08/27/1908/27/2024 CBC WITH AUTO- DIFFE RENTI AL imm. gran. 1.6 % 0.0-2. 0 Not Available [facility] [address] [facility] [address], [place], [address], 08/28/2024 14:12:10 08/27/19 25 08/27/2024 CBC WITH AUTO- DIFFE RENTI AL abs. imm. gran. 0.08 10*3/ uL 0.00-0 .10 Not Available [facility] [address] [facility] [address], [place], [address], 08/28/2024 14:12:10 08/27/19 25 08/27/2024 COMPR EHENS ELSIE METAB OLIC PANEL sodium 143 mmol/ L 134-14 4 Not Available [facility] [address] [facility] [address], [place], [address], 08/28/2024 14:12:11 08/27/19 25 08/27/2024 COMPR EHENS ELSIE METAB OLIC PANEL potassium 3.9 mmol/ L 3.5-5. 2 Not Available [facility] [address] [facility] [address], [place], [address], 08/28/2024 14:12:11 08/27/19 25 08/27/2024 COMPR EHENS ELSIE METAB OLIC PANEL chloride 105 mmol/ L 98-107 Not Available [facility] [address] [facility] [address], [place], [address], 08/28/2024 14:12:11 08/27/19 25 08/27/2024 COMPR EHENS ELSIE METAB OLIC PANEL carbon dioxide (co2) 31.0 mmol/ L 18.0-2 9.0 high Not Available [facility] [address] [facility] [address], [place], [address], 08/28/2024 14:12:11 08/27/19 25 08/27/2024 COMPR EHENS ELSIE METAB OLIC PANEL glucose 79 mg/dL 65-99 Mari l Fasti n - 99 mg/dL Impai red Fasti n - 125 mg/dL Diagn ostic of Diabe tae: => 126 mg/dL [facility], 2007 Not Available [facility] [address] [facility] [address], [place], [address], 08/28/2024 14:12:11 08/27/19 25 08/27/2024 COMPR EHENS ELSIE METAB OLIC PANEL urea nitrogen (BUN) 10 mg/dL 6-20 Not Available [facility] [address] [facility] [address], [place], [address], 08/28/2024 14:12:11 08/27/19 25 08/27/2024 COMPR EHENS ELSIE METAB OLIC PANEL creatinine 0.71 mg/dL 0.57-1 .00 Not Available [facility] [address] [facility] [address], [place], [address], 08/28/2024 14:12:11 08/27/19 25 08/27/2024 COMPR EHENS ELSIE METAB OLIC PANEL eGFR 99 mL/mi nute/ 1.73_ m2 >59 MDRD Study Equat ion: The calcu lated GFR is NOT appli cable for pedia tric (< 18 years old) and > 70 year old patie nts and patie nts that are NOT of stead y state . Not Available [facility] [address] [facility] [address], [place], [address], 08/28/2024 14:12:11 08/27/19 25 08/27/2024 COMPR EHENS ELSIE METAB OLIC PANEL calcium 10.6 mg/dL 8.7-10 .2 high Not Available [facility] [address] [facility] [address], [place], [address], 08/28/2024 14:12:11 08/27/19 25 08/27/2024 COMPR EHENS ELSIE METAB OLIC PANEL protein, total 7.2 gm/dL 6.4-8. 3 Not Available [facility] [address] [facility] [address], [place], [address], 08/28/2024 14:12:11 08/27/19 25 08/27/2024 COMPR EHENS ELSIE METAB OLIC PANEL albumin 4.3 gm/dL 3.5-5. 2 Not Available [facility] [address] [facility] [address], [place], [address], 08/28/2024 14:12:11 08/27/19 25 08/27/2024 COMPR EHENS ELSIE METAB OLIC PANEL bilirubin, total 0.40 mg/dL 0.00-1 .20 Not Available [facility] [address] [facility] [address], [place], [address], 08/28/2024 14:12:11 08/27/19 25 08/27/2024 COMPR EHENS ELSIE METAB OLIC PANEL alkaline phosphatase (ALP) 130 U/L 39-117 high Not Available [facility] [address] [facility] [address], [place], [address], 08/28/2024 14:12:11 08/27/19 25 08/27/2024 COMPR EHENS ELSIE METAB OLIC PANEL aspartate aminotransfe rase (AST) 12 U/L 0-32 Not Available [facility] [address] [facility] [address], [place], [address], 08/28/2024 14:12:11 08/27/19 25 08/27/2024 COMPR EHENS ELSIE METAB OLIC PANEL alanine aminotransfe rase (ALT) 12 U/L 0-33 Not Available [facility] [address] [facility] [address], [place], [address], 08/28/2024 14:12:11 08/27/19 25 08/27/2024 COMPR EHENS ELSIE METAB OLIC PANEL A/G ratio (calculated) 1.5 ratio 1.0-2. 7 Not Available [facility] [address] [facility] [address], [place], [address], 08/28/2024 14:12:11 08/27/19 25 08/27/2024 COMPR EHENS ELSIE METAB OLIC PANEL globulin (calculated) 2.9 gm/dL 1.5-3. 8 Not Available [facility] [address] [facility] [address], [place], [address], 08/28/2024 14:12:11 08/27/19 25 08/27/2024 COMPR EHENS ELSIE METAB OLIC PANEL BUN/creatini ne ratio (calculated) 14.1 ratio 8.0-20 .0 Not Available [facility] [address] [facility] [address], [place], [address], 08/28/2024 14:12:11 08/27/19 25 08/27/2024 COMPR EHENS ELSIE METAB OLIC PANEL serum hemolysis index NORMAL index normal Not Available [facility] [address] [facility] [address], [place], [address], 08/28/2024 14:12:11 08/27/19 25 08/27/2024 PARAT HYROI D HORMO NE (PTH) , INTAC T parathyroid hormone (PTH), intact 127.0 pg/mL 15.0-6 5.0 high Not Available [facility] [address] [facility] [address], [place], [address], 08/28/2024 14:12:12 08/27/19 25 08/27/2024 VITAM IN D, 25-HY DROXY TOTAL vitamin D, total 15.6 NG/mL 30.0-1 00.0 low The Vitam in D Assay formu latio n has been updat ed to offer direc t trace abili ty to ID-LC -MS/M S Refer ence Measu remen t Proce dure along with a reduc tion in bioti n inter feren ce. Defic ient: < 30 ng/mL Insuf ficie nt: 21 - 29 ng/mL Suffi cient : 30 - 100 ng/mL Poten tial Intox icati on: > 100 ng/mL Not Available [facility] [address], [place], [address], 08/28/2024 14:12:13 02/20/20 25 02/19/2025 adama metry testi ng* Spirometry Not Available [facility], [address], [place], [address], 02/19/2025 17:04:43 03/04/20 24 US, thyro id [facility] [place] [address] Orderi ng Provid er: RADHIKA MOURA Exam: Thyroi d ultras ound Access ion: [id number] Exam date and time: 024 3:24 PM Indica tion: 58 female . Thyroi d nodule follow -up. Compar rinku: Ultras ound thyroi d 023 and 02/20/20 20 Techni que: Graysc zeinab and color flow ultras ound examin ation of the thyroi d gland was perfor med. Ultras ound findin gs: Right lobe: Size: Measur es 4.4 X 1.6 X 2.0 cm. Parenc hyma: Homoge neous echote xture. Normal echoge nicity and vascul arity. Nodule (s): 1. Isoech oic solid 2.2 x 1.5 x 1.9 cm. TR 3. Stable Left lobe: Size: Measur es 3.7 x 1.2 x 1.6 cm. Parenc hyma: Homoge neous echote xture. Normal echoge nicity and vascul arity. Nodule (s): 1. Mid hypoec hoic solid 0.7 cm. TR 4 2. Inferi or medial hypoec hoic solid 0.8 cm. TR 4 Isthmu s: 4.2 mm in thickn ess (AP). 5. Possib le extrat hyroid hypoec hoic solid lesion deep to the left thyroi d lobe measur ing 1.5 x 0.6 x 1.1 cm stable from the prior study. This could repres ent a parath yroid adenom a =====I MPRESS ION:== === 1. Stable study demons tratin g a right thyroi d lobe are 2.2 cm TR 3 nodule stable since 02/20/20 21. Recomm endati on: Additi onal 24 month follow -up but demons trate 6 year stabil ity of this nodule . 2. Left thyroi d lobe subcen timete r TR 4 nodule s do not meet ACR criter ia for imagin g follow -up. 3. Stable left neck 1.5 cm possib le parath yroid adenom a deep to the left thyroi d lobe. Attent ion on follow -up. ACR TI-RAD S recomm endati ons: TR5, highly suspic ious (great er than or equal to 7 points ) - FNA if greate r than or equal to 1 cm, follow -up if 0.5-0. 9 cm every year for 5 years TR4, modera tely suspic ious (4-6 points ) - FNA if greate r than or equal to 1.5cm, follow -up if 1-1.4 cm in 1, 2, 3 and 5 years TR3, mildly suspic ious (3 points ) - FNA if greate r than or equal to 2.5cm, follow -up if 1.5-2. 4 cm in 1, 3 and 5 years TR2, not suspic ious (2 points ) and TR1, benign (0 points ) - No FNA or follow -up * ACR TI-RAD S recomm ends no more than two nodule s with the highes t ACR TI-RAD S total point should be biopsi ed and no more than four nodule s should be follow ed. ACR TI-RAD S (Thyro id Imagin g and Report ing Data System ) is a struct ured system for interp reting and report ing thyroi d imagin g studie s with manage ment maya leone. https: //www. acr.or g/Clin ical-R esourc es/Rep orting -and-D mike-Sy stems/ TI-RAD S Ordere d By: RADHIKA CORBETT DA Electr onical ly Signed By: Mamadou Noble MD on 024 3:51 PM Interp reted By: Mamadou Noble MD, 024 3:41 PM [facility] [address] [facility] [place], [place], [address], 05/21/2024 18:11:46 08/27/19 25 08/28/2024 elect rocar diogr am No observ ation record ed. [address], [place], [address], 02/19/2025 16:51:32 08/27/19 25 08/27/2024 US, echoc ardio gram No observ ation record ed. [address], [place], [address], 02/19/2025 16:51:32 08/28/19 25 08/27/2024 elect rocar diogr am No observ ation record ed. [address], [place], [address], 02/19/2025 16:51:32 09/26/19 25 09/17/2024 US, echoc ardio gram No observ ation record ed. [address], [place], [address], 02/19/2025 16:51:32 02/19/20 25 02/18/2025 US, pelvi s, compl ete No observ ation record ed. [facility] [address] [place] [address] [address], [place], [address], 03/05/2025 04:10:23 02/20/20 25 02/19/2025 adama metry testi ng* No observ ation record ed. ada [address], [place], [address], 02/23/2025 12:40:07 02/26/20 25 02/24/2025 XR, hand, 3 or more view No observ ation record ed. [facility] [address], [place], [address], 02/25/2025 21:11:07 03/13/20 25 03/11/2025 US, thyro id No observ ation record ed. [email or web address] [address], [place], [address], 03/20/2025 09:48:49 Result Notes None recorded. Problems Name Problem SNOMED Code Status Onset Date Resolution Date Notes Provider Name and Address Organization Details Recorded Time Obesity 131328757 Completed 201701/17/2018 Removal Reason: BMI > 50 Radhika Hodges MD [address], [place], [address] , [facility] 8 18:23:13 Polyp of vocal cord 5960719 Active 2017 S/P removal 01/19/17 Not Available [facility] 3 11:41:41 Sleep apnea 78147235 Completed 201711/02/2020 Radhika Hodges MD [address], [place], [address] , [facility] 1 16:52:07 Family history of diabetes mellitus 061833228 Active 2017 Not Available [facility] 3 11:41:41 Osteoart hritis of knee 230750954 Active 2017 using cane Not Available [facility] 3 11:41:41 Fibrocys tic disease of breast 92454098 Active 2017 Not Available [facility] 3 11:41:41 Varicose veins of lower extremit y 62609473 Active 2017 Not Available [facility] 3 11:41:41 Uterine leiomyom a 77553372 Active 2017 Not Available [facility] 3 11:41:41 Vitamin D deficien cy 54809042 Active 2017 Not Available [facility] 3 11:41:41 Morbid obesity 178949075 Active 2017 BMI 51.7 Not Available [facility] 3 11:41:41 Body mass index 40+ - severely obese 044169610 Active 2018 Not Available [facility] 3 11:41:41 Benign hyperten cheryle 81250552 Active 2018 Not Available [facility] 3 11:41:41 Diastoli c dysfunct ion 5408219 Active 2018 grade 1 - echo 05/22/19 Not Available [facility] 3 11:41:41 Hypercal cemia 19170111 Active 2018 Not Available [facility] 3 11:41:41 Obstruct elsie sleep apnea of adult 41941636281 03 Active 2019 Not Available [facility] 3 11:41:41 COVID-19 538929815 Completed 202011/02/2020 Radhika Hodges MD [address], [place], [address] , [facility] 16:51:50 Primary hyperpar athyroid ism 36245122 Active 2020 Not Available [facility] 3 11:41:41 Pain co-occur rent and due to varicose veins of bilatera l legs 78622895764 370060 Completed 202011/22/2020 Radhika Hodges MD [address], [place], [address] , [facility] 1 21:12:36 Peripher al venous insuffic iency 31772167 Active 2020 on US 11/22/20 Not Available [facility] 3 11:41:41 Parathyr oid adenoma 932397641 Active 2020 Not Available [facility] 3 11:41:41 Thyroid nodule 045868663 Active 2020 Not Available [facility] 3 11:41:41 Gastroes ophageal reflux disease without esophagi tis 629266221 Active 2020 Not Available [facility] 3 11:41:41 Cough variant asthma 588943213 Active 2020 Not Available [facility] 3 11:41:41 Sinus bradycar rosi 91361143 Active 2020 Not Available [facility] 3 11:41:41 Divertic ulosis of colon 438319212 Active 2021 Not Available [facility] 3 11:41:41 Blood-ti nged feces 25191869203 4102 Active 2021 Not Available [facility] 3 11:41:41 Trigger finger of right hand 25151273069 030813 Active 2022 Not Available [facility] 3 11:41:41 Electroc ardiogra m abnormal 807740883 Active 2022 Not Available [facility] 3 11:41:41 Mammogra phy abnormal 609443397 Active 2023 Radhika Hodges MD [address] [facility] [address], [place], [address] , [facility] 4 14:07:16 Hyperpar athyroid ism 44269603 Active 2024 Radhika Hodges MD [address], [place], [address] , [facility] 5 21:41:27 Non-toxi c multinod ular goiter 12290297 Active 2024 Radhika Hodges MD [address] [facility] [address], [place], [address] , [facility] 5 19:02:37 Problem Notes None recorded. Procedures Surgical History Date Name Laterality Status Provider Name and Address Organization Details Recorded Time 05/05/20 22 Colonoscopy completed Radhika Hodges MD [address] [facility] [address], [place], [address], [facility] 05/06/2022 16:42:38 10/04/19 19 Date of Last Mammogram completed ROCKY MANUEL [facility] 11/02/2020 16:40:02 03/12/20 18 Date of Last Colonoscopy completed ROCKY MANUEL [facility] 11/02/2020 16:40:15 03/12/20 18 Colonoscopy completed MD Claudio Yoo [facility] [address], [place], [address], [facility] 09/02/2018 19:19:57 07/05/20 17 Date of Last Pap Smear completed Malena Dalyield [facility] 01/17/2018 16:28:37 Cholecystectomy completed MD Claudio Yoo [facility] [address], [place], [address], [facility] 01/17/2018 16:49:01 Other completed MD Claudio Yoo [facility] [address], [place], [address], [facility] 01/17/2018 16:49:29 Imaging Results None recorded. Procedure Notes None recorded. Medical Equipment None Reported. Allergies Allergen ID Allergen Name Allergen Category Reaction Reaction Severity Criticality Documentation Date Start Date Code Code System Note Provider Name and Address Organization Details Recorded Time 91460 erythromy gunjan medicatio n Not available Not available Not available 02/19/2025 4053 RxNorm Not Available [employer] - prod 5 03:38:08 49151 bee pollen environme nt,medica tion Not available Not available Not available 02/19/20252019 91612 7 RxNorm React ion: OTHER REACT ION, Not Available [employer] - prod 5 03:41:50 70616 iodine medicatio n anaphylax is Not available high 02/19/20252018 5933 RxNorm Not Available [employer] - prod 03:41:50 78785 povidone- iodine medicatio n Not available Not available Not available 02/19/20252017 8611 RxNorm BECAU SE OF SHELL FISH ALLER GY Not Available [employer] - prod 5 03:41:50 44768 prochlorp erazine medicatio n dyspnea Not available [facility] 02/19/20252019 8704 RxNorm Not Available [employer] External [employer] - prod 5 03:41:50 81341 Shellfish (substanc e) food,medi cation Not available Not available Not available 02/19/20252019 32290 9006 SNOMED React ion: OTHER REACT ION Not Available [employer] - prod 5 03:41:50 66771 aluminum aspirin Not available Not available Not available Not available 02/19/20252017 611 RxNorm unrec ogniz ed react ion (text : GI Disco mfort , code: 12988 7008) (from exter nal sourc e) Not Available [employer] - prod 5 03:43:22 42716 meloxicam medicatio n Not available Not available Not available 02/19/20252016 10833 RxNorm unrec ogniz ed react ion (text : Nause a and/o r Vomit ing, code: 18409 000) (from exter nal sourc e) Not Available [employer] - prod 5 03:43:22 27736 tetracycl ine medicatio n itching Not available Not available 02/19/20252015 31453 RxNorm Not Available [employer] - prod 5 03:43:22 03403 amoxicill in medicatio n Not available Not available Not available 02/19/20252021 723 RxNorm unrec ogniz ed react ion (text : GI Upset , code: 59324 5008) (from exter nal sourc e) Not Available [employer] - prod 5 03:43:53 80230 POLLEN EXTRACTS environme nt,medica tion other Not available Not available 02/19/20252021 80992 6 RxNorm React ion: OTHER REACT ION, Not Available [employer] - prod 5 03:43:53 79927 shrimp allergeni c extract food swelling Not available high 02/19/20252021 76319 2 RxNorm Not Available [employer] - prod 5 03:43:53 6961 azithromy gunjan medicatio n hives Not available Not available 01/17/2018 89990 [facility] 8 16:25:30 6962 Substance with tetracycl ine structure (substanc e) medicatio n hives Not available Not available 01/17/2018 15816 8001 SNOMED [facility] 8 16:25:44 6963 aspirin medicatio n Not available Not available Not available 01/17/2018 1191 RxNorm ?? bleed jagdish Hodges MD [address] [facility] [address], [place], [address] [place] [address] 1 17:05:52 6964 shellfish derived food,medi cation Not available Not available Not available 01/17/2018 [facility] 8 16:26:27 6965 Product containin g penicilli n (product) medicatio n Not available Not available Not available 01/17/2018 36310 8001 SNOMED Malenajohnnie Munguia [facility] 8 16:26:48 Medications Name Sig Start Date Stop Date Status Note LastModified by Organization Details LastModified Time losartan 50 mg tablet TAKE 1 TABLET BY MOUTH EVERY DAY IN THE MORNING active Not Available Not Available No t Available cyclobenzap rine 10 mg tablet TAKE 1 TABLET BY MOUTH THREE TIMES DAILY NEEDED FOR MUSCLE SPASM 02/13 completed Not Available Not Available Not Available latanoprost 0.005 % eye drops 01/17 completed Not Available Not Available Not Available fluconazole 100 mg tablet TAKE 1 TABLET BY MOUTH EVERY DAY 02/11 completed Not Available Not Available Not Available metformin 500 mg tablet Take 1 tablet twice a day by oral route. 02/13 completed Not Available Not Available Not Available doxycycline hyclate 100 mg capsule TAKE 1 CAPSULE BY MOUTH TWICE DAILY 01/29 completed Not Available Not Available Not Available clindamycin HCl 300 mg capsule TAKE 3 CAPSULES BY MOUTH ONE HOUR PRIOR TO DENTAL APPOINTME NT 08/28 completed Not Available Not Available Not Available cetirizine 10 mg tablet TAKE 1 TABLET BY MOUTH EVERY DAY AT BEDTIME NEEDED 2023 active Not Available Not Available Not Avai lable azithromyci n 250 mg tablet TAKE 2 TABLETS (500 MG) BY ORAL ROUTE ONCE DAILY FOR 1 DAY THEN 1 TABLET (250 MG) BY ORAL ROUTE ONCE DAILY FOR 4 DAYS 05/21 completed Not Available Not Available Not Available fluconazole 150 mg tablet TAKE ONE TABLET BY MOUTH A ONE-TIME DOSE 11/13 completed Not Available Not Available Not Available ondansetron HCl 4 mg tablet 06/07 completed Not Available Not Available Not Available prednisone 20 mg tablet TAKE 2 TABLETS BY MOUTH DAILY X 5 DAYS 03/08 completed Not Available Not Available Not Available clindamycin HCl 150 mg capsule 02/05 completed Not Available Not Available Not Available metronidazo le 500 mg tablet TAKE 1 TABLET BY MOUTH THREE TIMES DAILY FOR 10 DAYS 06/07 completed Not Available Not Available Not Available Space Chamber USE DIRECTED 11/18 completed Not Available Not Available Not Available aspirin 81 mg tablet,owen yed release Take 1 tablet every day by oral route. 2020 active Not Available Not Available Not Avai lable tramadol 50 mg tablet TAKE 1 TABLET BY MOUTH EVERY 6 HOURS NEEDED FOR PAIN 11/18 completed Not Available Not Available Not Available meloxicam 7.5 mg tablet Take 1 tablet every day by oral route as needed. active Not Available Not Available No t Available oxycodone-a cetaminophe n 5 mg-325 mg tablet 02/10 completed Not Available Not Available Not Available alprazolam 0.25 mg tablet TAKE 1 TO 2 TABLETS BY MOUTH 1 HOUR BEFORE X RAY DO NOT DRIVE ON THIS DAY 11/21 completed Not Available Not Available Not Available prednisolon e acetate 1 % eye drops,suspe nsion SHAKE LIQUID AND INSTILL 1 DROP IN RIGHT EYE EVERY 2 HOURS WHILE AWAKE 11/18 completed Not Available Not Available Not Available baclofen 10 mg tablet Take 1 tablet 3 times a day by oral route. active Not Available Not Available No t Available Betimol 0.5 % eye drops 08/07 completed Not Available Not Available Not Available benzonatate 100 mg capsule TAKE 1 CAPSULE BY MOUTH THREE TIMES DAILY 02/11 completed Not Available Not Available Not Available cephalexin 500 mg capsule TAKE 1 CAPSULE BY MOUTH EVERY 6 HOURS NEEDED FOR 10 DAYS 07/13 completed Not Available Not Available Not Available pantoprazol e 40 mg tablet,owen yed release TAKE 1 TABLET BY MOUTH DAILY active Not Available Not Available No t Available lisinopril 10 mg tablet TAKE 1 TABLET BY MOUTH ONCE DAILY IN THE MORNING 04/03 completed Not Available Not Available Not Available omeprazole 20 mg capsule,del ayed release Take 1 capsule every day by oral route in the morning. 03/08 completed Not Available Not Available Not Available montelukast 10 mg tablet TAKE 1 TABLET BY MOUTH EVERY DAY active Not Available Not Available No t Available furosemide 20 mg tablet TAKE 1 TABLET BY MOUTH DAILY active Not Available Not Available No t Available ergocalcife rol (vitamin D2) 1,250 mcg (50,000 unit) capsule Take 1 capsule every week by oral route. active Not Available Not Available No t Available azelastine 137 mcg (0.1 %) nasal spray Edmond 2 sprays twice a day by intranasa l route. 11/05 completed Not Available Not Available Not Available lisinopril 10 mg-hydrochl orothiazide 12.5 mg tablet TAKE 1 TABLET BY MOUTH ONCE DAILY IN THE MORNING active Not Available Not Available No t Available levofloxaci n 500 mg tablet Take 1 tablet every 24 hours by oral route. 01/29 completed Not Available Not Available Not Available levofloxaci n 750 mg tablet TAKE 1 TABLET BY MOUTH ONCE DAILY FOR 10 DAYS 06/07 completed Not Available Not Available Not Available methylpredn isolone 4 mg tablets in a dose pack TAKE BY MOUTH DIRECTED ON INSIDE OF PACKAGE 11/13 completed Not Available Not Available Not Available albuterol sulfate HFA 90 mcg/actuati on aerosol inhaler INHALE 2 PUFFS BY MOUTH EVERY 4 HOURS NEEDED 2024 active Not Available Not Available Not Avai lable timolol maleate 0.5 % eye drops INSTILL 1 DROP IN BOTH EYES TWICE DAILY active Not Available Not Available No t Available timolol maleate 0.5 % eye gel forming solution 11/02 completed Not Available Not Available Not Available cefdinir 300 mg capsule TAKE 1 CAPSULE BY MOUTH TWICE DAILY FOR 7 DAYS 11/13 completed Not Available Not Available Not Available metformin ER 500 mg tablet,exte nded release 24 hr Take 1 tablet twice a day by oral route. 05/08 completed Not Available Not Available Not Available Tylenol Extra Strength 500 mg tablet Take 1 tablet every 8 hours by oral route. 2017 active Not Available Not Available Not Avai lable Bactrim DS 800 mg-160 mg tablet Take 1 tablet every 12 hours by oral route for 7 days. 02/05 completed Not Available Not Available Not Available Restasis 0.05 % eye drops in a dropperette 08/11 completed Not Available Not Available Not Available Metamucil 0.52 gram capsule Take 1 capsule every day by oral route. 02/13 completed Not Available Not Available Not Available Mucinex DM 30 mg-600 mg tablet,exte nded release 12 hr Take 1 tablet every 12 hours by oral route. 05/21 completed Not Available Not Available Not Available Boostrix Tdap 2.5 Lf unit-8 mcg-5 Lf/0.5 mL intramuscul ar suspension 08/07 completed Not Available Not Available Not Available Symbicort 80 mcg-4.5 mcg/actuati on HFA aerosol inhaler Inhale 2 puffs twice a day by inhalatio n route. 2024 active Not Available Not Available Not Avai lable cholecalcif millie (vitamin D3) 1,250 mcg (50,000 unit) capsule TAKE 1 CAPSULE BY MOUTH ONCE A WEEK 02/13 completed Not Available Not Available Not Available Xarelto 10 mg tablet Take 1 tablet every day by oral route. 11/02 completed Not Available Not Available Not Available Lotemax 0.5 % eye gel drops 01/17 completed Not Available Not Available Not Available Eliquis 2.5 mg tablet 02/10 completed Not Available Not Available Not Available Trulicity 1.5 mg/0.5 mL subcutaneou s pen injector 08/07 completed Not Available Not Available Not Available Flonase Allergy Relief 50 mcg/actuati on nasal spray,suspe nsion Edmond 1 spray every day by intranasa l route. 2023 active Not Available Not Available Not Avai lable Saxenda 3 mg/0.5 mL (18 mg/3 mL) subcutaneou s pen injector 03/12 completed Not Available Not Available Not Available Xiidra 5 % eye drops in a dropperette INSTILL 1 DROP IN BOTH EYES TWICE DAILY 05/21 completed Not Available Not Available Not Available Restasis MultiDose 0.05 % eye drops 11/06 completed Not Available Not Available Not Available Ozempic 0.25 mg or 0.5 mg (2 mg/1.5 mL) subcutaneou s pen injector Inject 0.5 mg every week by subcutane ous route. 02/13 completed Not Available Not Available Not Available Inveltys 1 % eye drops,suspe nsion INSTILL 1 DROP INTO EACH EYE THREE TIMES DAILY 11/02 completed Not Available Not Available Not Available Cequa 0.09 % eye drops in a dropperette INSTILL 1 DROP INTO BOTH EYES TWICE A DAY active Not Available Not Available No t Available Lotemax SM 0.38 % eye gel drops 11/05 completed Not Available Not Available Not Available Voltaren Arthritis Pain 1 % topical gel APPLY 2 GRAMS TO THE AFFECTED AREA(S) BY TOPICAL ROUTE 4 TIMES PER DAY 2021 active Not Available Not Available Not Avai lable Wegovy 1 mg/0.5 mL subcutaneou s pen injector Inject 1 mg every week by subcutane ous route. 03/01 completed Not Available Not Available Not Available Wegovy 0.25 mg/0.5 mL subcutaneou s pen injector Inject 0.25 mg every week by subcutane ous route. 10/30 completed Not Available Not Available Not Available Wegovy 0.5 mg/0.5 mL subcutaneou s pen injector INJECT 0.5 MG (ONE-HALF ) ONCE A WEEK BY SUBCUTANE OUS ROUTE active Not Available Not Available No t Available Ozempic 0.25 mg or 0.5 mg (2 mg/3 mL) subcutaneou s pen injector INJECT 0.5MG SUBCUTANE OUSLY ONCE A WEEK 07/02 completed Not Available Not Available Not Available Miebo (PF) 100 % eye drops INSTILL 1 DROP INTO BOTH EYES FOUR TIMES A DAY . BOTTLE PREPARATI ON IS REQUIRED. REFER TO PACKAGE INSERT FOR SPECIAL PREPARATI ON AND ADMIN active Not Available Not Available No t Available Airsupra 90 mcg-80 mcg/actuati on HFA aerosol inhaler Inhale 2 inhalatio ns every 8 hours by inhalatio n route as needed. 07/25 completed Not Available Not Available Not Available Zepbound 10 mg/0.5 mL subcutaneou s pen injector ADMINISTE R 10 MG UNDER THE SKIN EVERY WEEK 02/19 completed Not Available Not Available Not Available Zepbound 5 mg/0.5 mL subcutaneou s pen injector ADMINISTE R 5 MG UNDER THE SKIN EVERY WEEK active Not Available Not Available No t Available Zepbound 2.5 mg/0.5 mL subcutaneou s pen injector ADMINISTE R 2.5 MG UNDER THE SKIN EVERY WEEK 03/16 completed Not Available Not Available Not Available Zepbound 15 mg/0.5 mL subcutaneou s pen injector ADMINISTE R 15 MG UNDER THE SKIN EVERY WEEK active Not Available Not Available No t Available Zepbound 12.5 mg/0.5 mL subcutaneou s pen injector ADMINISTE R 12.5 MG UNDER THE SKIN EVERY WEEK active Not Available Not Available No t Available Zepbound 7.5 mg/0.5 mL subcutaneou s pen injector ADMINISTE R 7.5 MG UNDER THE SKIN EVERY WEEK 05/21 completed Not Available Not Available Not Available Vitals Date Recorded Heart rate Systolic And Diastolic Provider Name and Address Organization Details Last Updated DateTime 08/27/2024 58 /min 151/76 mm[Hg] Radhika Hodges MD [address] [facility] [address], [place], [address], [facility] 08/27/2024 18:07:01 Date Recorded Body height Body temperature Respiratory rate Body mass index (BMI) Body weight Provider Name and Address Organization Details Last Updated DateTime 5 177.8 cm 98.7 [degF] 18 /min 51.7 kg/m2 556613. 25 g Smita Kyle [facility] 5 17:28:31 Date Recorded Body height Body mass index (BMI) Body weight Body temperature Heart rate Respiratory rate Systolic And Diastolic Provider Name and Address Organization Details Last Updated DateTime 4 177.8 cm 56 kg/m2 869538. 02 g 98.7 [degF] 61 /min 18 /min 170/78 mm[Hg] Smita Wright [facility] 4 11:11:45 Date Recorded Systolic And Diastolic Provider Name and Address Organization Details Last Updated DateTime 02/18/2024 135/88 mm[Hg] MD Evelio Yoo2 [facility] [address], [place], [address] 02/18/2024 18:21:29 Date Recorded Body height Heart rate Respiratory rate Body temperature Body mass index (BMI) Body weight Provider Name and Address Organization Details Last Updated DateTime 4 177.8 cm 64 /min 18 /min 98.2 [degF] 56.5 kg/m2 390095. 39 g Emile Sosa [facility] 4 17:59:53 Date Recorded Systolic And Diastolic Provider Name and Address Organization Details Last Updated DateTime 02/19/2025 134/78 mm[Hg] MD Evelio Yoo2 [facility] [address], [place], [address] 02/19/2025 17:03:55 Date Recorded Body height Body temperature Body mass index (BMI) Body weight Respiratory rate Heart rate Provider Name and Address Organization Details Last Updated DateTime 5 177.8 cm 97.4 [degF] 51.7 kg/m2 290214. 25 g 18 /min 64 /min Smita Kyle [facility] 5 16:25:47 Date Recorded Systolic And Diastolic Provider Name and Address Organization Details Last Updated DateTime 05/21/2024 133/71 mm[Hg] MD Evelio Yoo2 [facility] [address], [place], [address], [facility] 05/21/2024 18:25:11 Date Recorded Body height Body mass index (BMI) Body weight Body temperature Respiratory rate Heart rate Provider Name and Address Organization Details Last Updated DateTime 4 177.8 cm 54.2 kg/m2 600427. 92 g 97.8 [degF] 18 /min 52 /min Smita Wright [facility] 4 17:39:08 Social History Question Answer Notes LastModified by Organizat ion Details LastModified Time Tobacco Smoking Status Never Smoker [facility] 01/17/2018 16:28:20 Do You Have An Advance Directive? No Information n ot available 01/17/2018 What Is Your Level Of Caffeine Consumption? Heavy Information not available 01/17/2018 In The 14 Days Before Symptom Onset, Have You Had Close Contact With A Laboratory-confirm ed COVID-19 While That Case Was Ill? No Information n ot available 11/06/2019 In The 14 Days Before Symptom Onset, Have You Had Close Contact With A Person Who Is Under Investigation For COVID-19 While That Person Was Ill? No Information not available 11/06/2019 Have You Been To An Area Known To Be High Risk For COVID-19? No Information not available 11/06/2019 Which Illicit Or Recreational Drugs Have You Used? No Information not available 01/17/2018 Are There Any Guns Present In Your Home? No Information not available 11/06/2019 Live Alone Or With Others? Alone Information not available 01/17/2018 Marital Status Single Informatio n not available 01/17/2018 What Was The Date Of Your Most Recent Tobacco Screening? 11/21/2021 Information not available 11/21/2021 Performs Monthly Self-breast Exam? No Information no t available 11/06/2019 Seat Belts Used Routinely Yes Information not available 11/06/2019 Smoke Alarm In Home Yes Information not available 11/06/2019 Do You Use Sunscreen Routinely? No Information not available 11/06/2019 Have You Used IV Drugs? No Information not available 11/06/2019 Sex: Unknown Functional Status Question Answer Note LastModified by Organization D etails LastModified Time What is your level of alcohol consumption? None Information not available 01/17/2018 Are you currently employed? Yes Information not available 01/17/2018 Are you able to care for yourself independently? 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 Family History Relationship Description Onset Age of this Age Resolved Age Notes LastModified by Organization Details LastModified Time Mother Malignant neoplasm of cervix uteri 48 [email or web address] Not available 16:50:00 Brother Diabetes mellitus [email or web address] Not available 2017 16:50:25 Sister Diabetes mellitus [email or web address] Not available 2017 16:50:25 Medical History No medical history recorded. Gynecological History Statement/Question Response Date of Last Pap Smear 07/05/2017 Date of Last Mammogram 10/04/2018 Date of Last Colonoscopy 03/12/2018 Obstetrics History GPAL:G 0 P 0 0 0 0 Immunizations Vaccine Type Date Status Note Provider Name and Address Organization Details Recorded Time Td(adult) unspecified formulation 018 completed Not Available [facility] 06/11/2023 11:41:42 SARS-COV-2 (COVID-19) vaccine, UNSPECIFIED 021 completed Not Available [facility] 06/11/2023 11:41:42 COVID-19, mRNA, LNP-S, PF, 30 mcg/0.3 mL dose 021 completed Not Available [facility] 06/11/2023 11:41:42 Influenza, MDCK, quadrivalent, PF 020 cancelled patient objection Radhika Hodges MD [address] [facility] [address], [place], [address], [facility] 11/06/2019 16:51:10 zoster recombinant 020 cancelled patient objection Radhika Hodges MD [address] [facility] [address], [place], [address], [facility] 02/11/2020 18:18:59 Influenza, MDCK, quadrivalent, PF 020 cancelled patient objection Radhika Hodges MD [address] [facility] [address], [place], [address], [facility] 02/11/2020 18:18:59 pneumococcal polysaccharide PPV23 020 cancelled patient objection MD Claudio Yoo [facility] [address], [place], [address], [facility] 02/11/2020 18:18:59 Tdap 020 cancelled patient objection MD Evelio Yoo[address] [place] [address] [address], [place], [address], [facility] 02/11/2020 18:18:59 Influenza, split virus, quadrivalent, PF 020 cancelled patient objection MD Evelio Yoo[address] [place] [address] [address], [place], [address], [facility] 05/31/2020 18:18:31 Past Encounters Encounter ID Performer Location Encounter Start Date Encounter Closed Date Diagnosis/Indication Diagnosis SNOMED-CT Code Diagnosis ICD10 Code Diagnosis IMO Codes Diagnosis Note [id number] Radhika Hodges MD [facility], [facility] [address] [facility] [place] [address] 01/17/2018 15:38:13 01/17/2018 17:12:01 Benign hypertension 03488970 I10 Morbid obesity 383225883 E66.01 Osteoarthr itis of knee 706472267 M17.0 Sleep apnea 01189216 G47 .30 Screening mammography 24 470672 Z12.31 per pt had Mammogram 11/2017 Screening for malignant neoplasm of cervix 404525030 Z12.4 per pt had PAP 06/2017 Screening for malignant neoplasm of colon 186660189 Z12.11 Vitamin D deficiency 347 78481 E55.9 Family his tory of diabetes mellitus 468209804 Z83.3 Cholesterol screening 27 7998357 Z13.220 Active or passive immunization 140512838 Z23 [id number] Radhika Hodges MD [place], [facility] [address] [place] [address] 04/18/2018 15:41:16 04/18/2018 17:01:01 Adult health examination 560496089 Z00.01 Benign hypertension 1072 5009 I10 per pt had ophth eval 03/2018 Morbid obesity 493932436 E66.01 seen nutrition @ Status4 U Osteoarthr itis of knee 655739197 M17.0 seen ortho //need preop eval Sleep apnea 87330433 G47 .30 sees pulm once a year Screening mammography 24 731733 Z12.31 per pt had Mammogram 11/2017 Screening for malignant neoplasm of cervix 861904871 Z12.4 per pt had PAP 06/2017 Screening for malignant neoplasm of colon 765992314 Z12.11 Per pt last C scope 01/2018 , will try to get report Vitamin D deficiency 347 20515 E55.9 Family his tory of diabetes mellitus 521915301 Z83.3 had GTT 12/2017 Cholesterol screening 27 5138776 Z13.220 Active or passive immunization 502055721 Z23 Preoperati ve cardiovascular examination 632637260 Z01.810 no CP,No SOB , last stress 2015 , -ve per Pt , will get cardiac clearance 04/30/18 Impaired f asting glycemia 415469273 R73.01 [id number] Radhika Hodges MD [place], [facility] [address] [place] [address] 08/07/2018 17:48:33 08/07/2018 18:46:49 Benign hypertension 37390397 I10 per pt had ophth eval 03/2018 Morbid obesity 776881780 E66.01 seen nutrition @ Status4 U Osteoarthr itis of knee 156651438 M17.0 seen ortho //need preop eval Vitamin D deficiency 347 45550 E55.9 Screening mammography 24 340828 Z12.31 per pt had Mammogram 11/2017 Screening for malignant neoplasm of cervix 752476200 Z12.4 per pt had PAP 06/2017 Screening for malignant neoplasm of colon 112026660 Z12.11 Per pt last C scope 01/2018 , will try to get report Active or passive immunization 321411314 Z23 [id number] CIARA STEIN APN [email or web address] [address] [facility] ,[address] [place] [address] 09/11/2018 17:20:00 09/11/2018 18:11:30 Laceration of lower leg 251357621 S81.812A 09/01/18 - [facility] ED visit Osteoarthritis 361600810 M19.90 left knee - Impaired f asting glycemia 204448016 R73.01 intolerant of metformin ER BID (multiple stools per day)encour aged to try once daily - [id number] Radhika Hodges MD [employer] [facility], [place] [address] [facility] [place] ,[address] [place] [address] 11/06/2018 18:09:53 11/06/2018 19:07:28 Sinusitis 61553469 J32.9 Vitamin D deficiency 347 54559 E55.9 Hypercalcemia 93151647 E 83.52 Sleep apnea 38286780 G47 .30 sees pulm once a year Body mass index 40+ - severely obese 091364920 Z68.43 Benign hypertension 1072 5009 I10 per pt had ophth eval 03/2018 Screening mammography 24 978295 Z12.31 per pt had Mammogram 10/2018 per pt Screening for malignant neoplasm of cervix 028035715 Z12.4 per pt had PAP 06/2018 Screening for malignant neoplasm of colon 814273081 Z12.11 Per pt last C scope 01/2018 , will try to get report [id number] CIARA STEIN APN [employer] [employer] [facility], [place] [address] [facility] [place] ,[address] [place] [address] 01/06/2019 09:29:31 01/06/2019 12:16:36 Edema of lower extremity 273910361 R60.0 Congestion of nasal sinus 73858688 R09.81 continue flonase Vitamin D deficiency 347 89028 E55.9 Hypercalcemia 24740307 E 83.52 Sleep apnea 09222847 G47 .30 sees pulm once a year Body mass index 40+ - severely obese 961723905 Z68.43 Benign hypertension 1072 5009 I10 per pt had ophth eval 03/2018 Screening mammography 24 799808 Z12.31 per pt had Mammogram 10/2018 per pt Screening for malignant neoplasm of cervix 349113266 Z12.4 per pt had PAP 06/2018 Screening for malignant neoplasm of colon 899023858 Z12.11 Per pt last C scope 01/2018 , will try to get report Chronic sinusitis 786534 00 J32.9 [id number] Radhika Hodges MD [facility] [employer], [place] [address] [facility] [place] ,[address] [place] [address] 02/05/2019 17:07:16 02/05/2019 17:57:38 Benign hypertension 16706743 I10 per pt had ophth eval 03/2018 Body mass index 40+ - severely obese 563679331 Z68.43 Osteoarthr itis of knee 663212030 M17.0 seen ortho //need preop eval.patie nt unable to perform her ADL's and can benefit from the use of a rollator walker to assist with ADLs. Edema of l ower extremity 891484950 R60.0 Primary hyperparathyroidism 68651830 E21.0 Screening mammography 24 635225 Z12.31 per pt had Mammogram 10/2018 per pt Screening for malignant neoplasm of cervix 287491891 Z12.4 per pt had PAP 06/2018 Screening for malignant neoplasm of colon 848480123 Z12.11 Per pt last C scope 01/2018 , will try to get report [id number] Radhika Hodges MD [facility], [place] [address] [facility] [place] ,[address] [place] [address] 03/25/2019 11:38:36 03/25/2019 12:20:57 Osteoarthritis of knee 014546016 M17.0 seen ortho //need preop eval.patie nt unable to perform her ADL's and can benefit from the use of a rollator walker to assist with ADLs.pt is able to walk better with walker ,cognitive ly saftly can use the walker Ataxia 59539349 R27.0 2ry to OA kneewill benefit from rollator Body mass index 40+ - severely obese 183494353 Z68.43 [id number] Radhika Hodges MD [facility], [place] [address] [facility] [place] ,[address] [place] [address] 05/08/2019 16:35:01 05/08/2019 17:01:02 Benign hypertension 12472656 I10 per pt had ophth eval 2019increa se lisinopril to 1 tab QAMBP 2-3 weeks Body mass index 40+ - severely obese 215544538 Z68.43 Vitamin D deficiency 347 74734 E55.9 Cough 65148883 R05 Adult heal th examination 627877370 Z00.01 Uterine leiomyoma 498014 05 D25.9 asymptomat ic Varicose v eins of lower extremity 54743345 I83.90 support hose Osteoarthr itis of knee 363994069 M17.0 seen ortho //need preop eval.patie nt unable to perform her ADL's and can benefit from the use of a rollator walker to assist with ADLs.pt is able to walk better with walker ,cognitive ly saftly can use the walker Sleep apnea 70721766 G47 .30 sees pulm once a year 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 Screening mammography 24 960403 Z12.31 per pt had Mammogram 10/2018 per pt Screening for malignant neoplasm of cervix 752548961 Z12.4 per pt had PAP 06/2018 Screening for malignant neoplasm of colon 634085553 Z12.11 Per pt last C scope 01/2018 , will try to get report Active or passive immunization 432496342 Z23 refuse any shots Cholesterol screening 27 0748609 Z13.220 487391 Radhika Hodges MD [facility], [facility] [address] [facility] [place] ,[address] [address] 08/07/2019 16:05:19 08/07/2019 16:33:38 Benign hypertension 31527568 I10 per pt had ophth eval 2019BP 2-3 weeks Body mass index 40+ - severely obese 812010146 Z68.43 education Diastolic dysfunction 35 30483 I51.9 last ECHO 05/08/19 Osteoarthr itis of knee 059983438 M17.0 seen ortho //need preop eval.patie nt unable to perform her ADL's and can benefit from the use of a rollator walker to assist with ADLs.pt is able to walk better with walker ,cognitive ly saftly can use the walkerhavi ng Lt TKR @ [facility] 09/08/18 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 good now Sleep apnea 59102316 G47 .30 sees pulm once a year Vitamin D deficiency 347 27551 E55.9 last level 08/05/19 Hypercalcemia 27315204 E 83.52 Screening mammography 24 117457 Z12.31 per pt had Mammogram 10/2018 per pt Screening for malignant neoplasm of cervix 383354716 Z12.4 per pt had PAP 06/2018 Screening for malignant neoplasm of colon 843158361 Z12.11 Per pt last C scope 01/2018 , will try to get report Active or passive immunization 867518257 Z23 refuse any shots [id number] Radhika Hodges MD [facility], [place] [address] [facility] [place] [address] [place] [address] 11/06/2019 16:10:33 11/06/2019 16:58:50 Benign hypertension 11388363 I10 per pt had ophth eval 2019BP 2-3 weeks Body mass index 40+ - severely obese 069501027 Z68.43 education Vitamin D deficiency 347 59988 E55.9 last level 08/05/19 Hypercalcemia 53209126 E 83.52 Sleep apnea 02468097 G47 .30 sees pulm once a year Screening mammography 24 653375 Z12.31 per pt had Mammogram 10/2018 per pt Screening for malignant neoplasm of cervix 840003440 Z12.4 per pt had PAP 08/18/19 Screening for malignant neoplasm of colon 443376018 Z12.11 Per pt last C scope 01/2018 , will try to get report Active or passive immunization 062868860 Z23 refuse any shots Congestion of nasal sinus 41789941 R09.81 084717 Radhika Hodges MD [facility], [facility] [address] [facility] [place] ,[address] [place] [address] 02/11/2020 17:18:18 02/11/2020 18:21:58 Benign hypertension 03412977 I10 per pt had ophth eval 2019BP 2-3 weeks Hypercalcemia 13946557 E 83.52 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 good now Vitamin D deficiency 347 38910 E55.9 last level 11/19/19 Obstructiv e sleep apnea of adult 0366555999 103 G47.33 sees pulm once a year Osteoarthr itis of knee 685797067 M17.0 Rt knee TKR 01/26/20Lt TKR @ [facility] 09/08/18 Screening mammography 24 082985 Z12.31 per pt had Mammogram 10/2018 per pt Screening for malignant neoplasm of cervix 088374407 Z12.4 per pt had PAP 08/18/19 Screening for malignant neoplasm of colon 036191991 Z12.11 Per pt last C scope 01/2018 , will try to get report Active or passive immunization 397846125 Z23 refuse any shots Viral screening 13702609 4 Z11.59 [id number] Radhika Hodges MD [email or web address] [address] [facility] [place] [address] [place] [address] 05/31/2020 17:12:12 05/31/2020 18:25:38 Adult health examination 221993569 Z00.01 Benign hypertension 1072 5009 I10 per pt had ophth eval 2020BP 2-3 weeks Body mass index 40+ - severely obese 420164906 Z68.43 education Diastolic dysfunction 35 52926 I51.9 last ECHO 05/08/19 Family his tory of diabetes mellitus 346972950 Z83.3 had GTT 12/2017 Fibrocysti c disease of breast 10100279 N60.19 Hypercalcemia 31639274 E 83.52 recheck Obstructiv e sleep apnea of adult 1680621259 103 G47.33 sees pulm once a year Osteoarthr itis of knee 013456876 M17.0 Rt knee TKR 01/26/20Lt TKR @ [facility] 09/08/18 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 good now Uterine leiomyoma 932858 05 D25.9 asymptomat ic Varicose v eins of lower extremity 70722227 I83.90 support hose Vitamin D deficiency 347 25975 E55.9 last level 05/17/20 , recheck 3 months Screening mammography 24 985410 Z12.31 per pt had Mammogram 04/2020 per pt Screening for malignant neoplasm of cervix 733551444 Z12.4 per pt had PAP 08/18/19 Screening for malignant neoplasm of colon 632158025 Z12.11 Per pt last C scope 01/2018 , will try to get report Active or passive immunization 277414560 Z23 refuse any shots 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 elevated parathyroi d hormone recheck 3 months from 05/17/20 Low back pain 094145316 M54.5 [id number] Radhika Hodges MD [facility], [place] [address] [facility] [place] ,[address] [place] [address] 11/02/2020 16:08:05 11/02/2020 17:12:02 Benign hypertension 84152825 I10 per pt had ophth eval 07/2020BP 2-3 weeks Body mass index 40+ - severely obese 286446537 Z68.43 education Hypercalcemia 13710791 E 83.52 recheck Obstructiv e sleep apnea of adult 4112413690 103 G47.33 sees pulm once a year , last visit 06/2020 Osteoarthr itis of knee 566580922 M17.0 Rt knee TKR 01/26/20Lt TKR @ [facility] 09/08/18 Varicose v eins of lower extremity 73539935 I83.90 support hose Vitamin D deficiency 347 31007 E55.9 last level 05/17/20 , recheck 3 months Cough 61298168 R05 Numbness a nd tingling sensation of skin 1297739607 02 R20.2 Rt upper ext and Rt low ext , will check MRI Screening mammography 24 634388 Z12.31 per pt had Mammogram 04/2020 per pt Screening for malignant neoplasm of cervix 732901764 Z12.4 per pt had PAP 08/31/20 Screening for malignant neoplasm of colon 347907699 Z12.11 Per pt last C scope 03/12/18 , good for 10 years Active or passive immunization 375816211 Z23 refuse any shots [id number] Radhika Hodges MD [email or web address] [address] [facility] [place] ,[address] [place] [address] 02/02/2021 15:51:01 02/02/2021 16:59:48 Gastroesophageal reflux disease without esophagitis 069357436 K21.9 Benign hypertension 1072 5009 I10 per pt had ophth eval 07/2020BP 2-3 weeks Body mass index 40+ - severely obese 431884784 Z68.43 education Obstructiv e sleep apnea of adult 4047108881 103 G47.33 sees pulm once a year , last visit 06/2020 Primary hyperparathyroidism 10251445 E21.0 Vitamin D deficiency 347 69619 E55.9 last level 05/17/20 , recheck 3 months Varicose v eins of lower extremity 08276300 I83.90 support hose Screening mammography 24 394645 Z12.31 per pt had Mammogram 04/2020 per pt Screening for malignant neoplasm of cervix 666055161 Z12.4 per pt had PAP 08/31/20 Screening for malignant neoplasm of colon 670538591 Z12.11 Per pt last C scope 03/12/18 , good for 10 years Active or passive immunization 332409118 Z23 refuse any shots Hyperlipid emia screening 149072469 Z13.220 [id number] Radhika Hodges MD [email or web address] [facility] [place] ,[address] [place] [address] 05/12/2021 16:57:49 05/12/2021 17:48:10 Pain in left knee 4090541076 75935 M25.562 Gastroesop hageal reflux disease without esophagitis 003939668 K21.9 Body mass index 40+ - severely obese 282649280 Z68.43 education Benign hypertension 1072 5009 I10 per pt had ophth eval 07/2020BP 2-3 weeks Obstructiv e sleep apnea of adult 7103566364 103 G47.33 sees pulm once a year , last visit 06/2020 Primary hyperparathyroidism 27980083 E21.0 Vitamin D deficiency 347 16903 E55.9 last level 05/17/20 , recheck 3 months Cholesterol screening 27 1982507 Z13.220 Screening mammography 24 658122 Z12.31 per pt had Mammogram 04/2020 per pt Screening for malignant neoplasm of cervix 044789343 Z12.4 per pt had PAP 08/31/20 Screening for malignant neoplasm of colon 894866987 Z12.11 Per pt last C scope 03/12/18 , good for 10 years Active or passive immunization 810156314 Z23 refuse any shots Radhika Hodges MD [email or web address] [facility] [place] ,[address] [place] [address] 08/11/2021 11:15:36 08/11/2021 11:56:43 Adult health examination 534620042 Z00.01 Benign hypertension 1072 5009 I10 per pt had ophth eval 07/2020pls take meds on reg basisBP 2-3 weeks Body mass index 40+ - severely obese 224375047 Z68.43 education Diastolic dysfunction 35 04821 I51.9 last ECHO 05/08/19 Family his tory of diabetes mellitus 348374296 Z83.3 had GTT 12/2017 Fibrocysti c disease of breast 28500625 N60.19 last mammogram 07/15/21 Gastroesop hageal reflux disease without esophagitis 675476328 K21.9 education Hypercalcemia 55339201 E 83.52 recheck Obstructiv e sleep apnea of adult 1006248567 103 G47.33 sees pulm once a year , last visit 06/2020 Osteoarthr itis of knee 037953412 M17.0 Rt knee TKR 01/26/20Lt TKR @ [facility] 09/08/18 Parathyroid adenoma 1284 93209 D35.1 Lt lower Peripheral venous insufficiency 93520674 I87.2 education 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 good now Primary hyperparathyroidism 22813991 E21.0 last Parathyroi d scan 12/10/20 Thyroid nodule 665622262 E04.1 last US 02/19/21 , recheck 1 year Uterine leiomyoma 997643 05 D25.9 asymptomat ic Vitamin D deficiency 347 95475 E55.9 last level 11/09/20 , recheck Cough variant asthma 409 490080 J45.991 Screening mammography 24 306714 Z12.31 per pt had Mammogram 04/2020 per pt Screening for malignant neoplasm of cervix 108114168 Z12.4 per pt had PAP 08/31/20 Screening for malignant neoplasm of colon 262977156 Z12.11 Per pt last C scope 03/12/18 , good for 10 years Active or passive immunization 290092548 Z23 refuse any shotsgot covid shots [id number] Radhika Hodges MD [facility], [place] [address] [facility] [place] ,[address] [address] 11/21/2021 18:08:19 11/21/2021 18:50:33 Benign hypertension 28730009 I10 per pt had ophth eval 07/2020pls take meds on reg basisBP 2-3 weekslast EKG 08/11/21 Body mass index 40+ - severely obese 426080429 Z68.43 education Cough variant asthma 409 423139 J45.991 last PFT 08/11/21 Gastroesop hageal reflux disease without esophagitis 697699566 K21.9 education Obstructiv e sleep apnea of adult 2349675623 103 G47.33 sees pulm once a year , last visit 06/2020 Parathyroid adenoma 1284 95076 D35.1 Lt lower 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 good now Thyroid nodule 298443083 E04.1 last US 02/19/21 , recheck 1 year Vitamin D deficiency 347 02973 E55.9 last level 08/11/21 , recheck Screening mammography 24 487137 Z12.31 per pt had Mammogram 07/15/21 per pt Screening for malignant neoplasm of cervix 399251621 Z12.4 per pt had PAP 08/31/20 Screening for malignant neoplasm of colon 700863120 Z12.11 Per pt last C scope 03/12/18 , good for 10 years Active or passive immunization 889831339 Z23 refuse any shotsgot covid shots Diverticul osis of colon 288171503 K57.30 [id number] Radhika Hodges MD [facility], [place] [facility] [place] ,[address] [address] 03/01/2022 14:44:06 03/01/2022 15:46:08 Benign hypertension 98248133 I10 per pt had ophth eval ls take meds on reg basisBP 2-3 weekslast EKG 08/11/21 Body mass index 40+ - severely obese 919902043 Z68.43 education Cough variant asthma 409 110777 J45.991 last PFT 08/11/21 Gastroesop hageal reflux disease without esophagitis 225325584 K21.9 education Obstructiv e sleep apnea of adult 9003617062 103 G47.33 sees pulm once a year , Primary hyperparathyroidism 09446162 E21.0 last Parathyroi d scan 02/22/22 Thyroid nodule 977325952 E04.1 last US 02/19/21 , recheck 1 year Varicose v eins of lower extremity 95182082 I83.90 support hose Vitamin D deficiency 347 80646 E55.9 last level 03/01/22 Screening mammography 24 583359 Z12.31 per pt had Mammogram 07/15/21 per pt Screening for malignant neoplasm of cervix 636427436 Z12.4 per pt had PAP 02/2022 Screening for malignant neoplasm of colon 798005057 Z12.11 Per pt last C scope 03/12/18 , good for 10 years Active or passive immunization 508731055 Z23 refuse any shotsgot covid shots [id number] Radhika Hodges MD [facility], [address] [place] ,[address] [place] [address] 03/08/2022 11:53:19 03/08/2022 12:47:22 Nausea and vomiting 84964083 R11.2 better Abdominal pain 32281264 R10.9 CT , labs @ ER -ve Gastroesop hageal reflux disease without esophagitis 365868216 K21.9 educationH OB up 30 degree Cough 22887016 R05.9 stop lisinopril Benign hypertension 1072 5009 I10 per pt had ophth eval 02/2022will change lisinopril to losartan 2ry to coughBP 2-3 weekslast EKG 08/11/21 [id number] Radhika Hodges MD [facility], [address] [place] ,[address] [place] [address] 04/03/2022 15:10:22 04/03/2022 17:05:54 Hospital inpatient stay within past 30 days 2179258072 106 Z76.89 went to ER 03/18/22 for weakness and abd pain , better , compliant Abdominal visceral abscess 32084899 K65.1 S/P drainage , better , cont' ABx Morbid obesity 906625662 E66.01 seen nutrition @ wash U Muscle weakness 47120677 M62.81 better Parathyroid adenoma 1284 98190 D35.1 Lt lower Peripheral venous insufficiency 23228707 I87.2 education , with swelling [id number] Radhika Hodges MD [facility], [address] [place] ,[address] [place] [address] 06/07/2022 17:57:24 06/07/2022 18:57:19 Low back pain 597846571 M54.50 on PT nowbetter nowRTC 3 weeks if not better Benign hypertension 1072 5009 I10 per pt had ophth eval 2on losartan , no more coughBP 2-3 weekslast EKG 08/11/21 Blood-tinged feces 72049 99666 20452 K92.1 had C scope 03/2022 Body mass index 40+ - severely obese 364244955 Z68.43 education [id number] Radhika Hodges MD [place], [facility] [address] [facility] [place] [address] [address] 08/15/2022 10:43:14 08/15/2022 11:39:08 Adult health examination 255761090 Z00.01 Benign hypertension 1072 5009 I10 per pt had ophth eval 2on losartan , no more coughBP 2-3 weekslast EKG 08/11/21 Body mass index 40+ - severely obese 088426099 Z68.43 education Cough variant asthma 409 229724 J45.991 last PFT 08/11/21 Diastolic dysfunction 35 64207 I51.9 last ECHO 05/08/19 Diverticul osis of colon 168347448 K57.30 last C scope 04/2022 Family his tory of diabetes mellitus 810182602 Z83.3 had GTT 12/2017 Fibrocysti c disease of breast 30907631 N60.19 last mammogram 07/15/21 Gastroesop hageal reflux disease without esophagitis 986648088 K21.9 educationH OB up 30 degree Hypercalcemia 50508349 E 83.52 recheck Obstructiv e sleep apnea of adult 6281557930 103 G47.33 sees pulm once a year , Osteoarthr itis of knee 028981111 M17.0 Rt knee TKR 01/26/20Lt TKR @ [facility] 09/08/18 Peripheral venous insufficiency 11240882 I87.2 education , with swelling Parathyroid adenoma 1284 85390 D35.1 Lt lowerlast US 06/06/22la st DEXA 06/06/22 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 good now Primary hyperparathyroidism 94065523 E21.0 last Parathyroi d scan 02/22/22 Thyroid nodule 102517567 E04.1 last US 06/06/22 , recheck 1 year Uterine leiomyoma 061663 05 D25.9 asymptomat ic Varicose v eins of lower extremity 72223794 I83.90 support hose Vitamin D deficiency 347 96850 E55.9 last level 03/01/22 Pain in right thumb 1076 763606 385884 M79.644 per pt seen hand surgery , had X ray Screening mammography 24 083770 Z12.31 per pt had Mammogram 07/15/21 per pt Screening for malignant neoplasm of cervix 066441930 Z12.4 per pt had PAP 02/2022 Screening for malignant neoplasm of colon 768732925 Z12.11 Per pt last C scope 05/05/22 , good for 10 years Active or passive immunization 177515638 Z23 refuse any shotsgot covid shots [id number] Radhika Hodges MD [facility], [place] [facility] [place] ,[address] [address] 11/13/2022 09:28:55 11/13/2022 10:11:38 Cough variant asthma 951310156 J45.991 last PFT 08/15/22 Benign hypertension 1072 5009 I10 per pt had ophth eval P 2-3 weekslast EKG 08/11/21 Body mass index 40+ - severely obese 859172174 Z68.43 education Gastroesop hageal reflux disease without esophagitis 424742151 K21.9 educationH OB up 30 degree Hypercalcemia 83210562 E 83.52 recheck Obstructiv e sleep apnea of adult 5933884316 103 G47.33 sees pulm once a year , Parathyroid adenoma 1284 93023 D35.1 Lt lowerlast US 06/06/22la st DEXA 06/06/22se en endo Thyroid nodule 014568338 E04.1 last US 06/06/22 , recheck 1 year Vitamin D deficiency 347 43401 E55.9 last level 03/01/22 Cholesterol screening 27 4121150 Z13.220 Screening mammography 24 537781 Z12.31 per pt had Mammogram 09/07/22 per pt Screening for malignant neoplasm of cervix 148408763 Z12.4 per pt had PAP 02/2022 Screening for malignant neoplasm of colon 419738718 Z12.11 Per pt last C scope 05/05/22 , good for 10 years Active or passive immunization 468669434 Z23 refuse any shotsgot covid shots [id number] Radhika Hodges MD [facility], [place] [address] [facility] [place] ,[address] [place] [address] 02/13/2023 10:03:22 02/13/2023 10:35:54 Benign hypertension 97540743 I10 per pt had ophth eval 3BP 2-3 weekslast EKG 11/13/22 Body mass index 40+ - severely obese 172164074 Z68.43 education Gastroesop hageal reflux disease without esophagitis 419522117 K21.9 educationH OB up 30 degree Obstructiv e sleep apnea of adult 1996457774 103 G47.33 sees pulm once a year , Thyroid nodule 892274111 E04.1 last US 06/06/22 , recheck 1 year Vitamin D deficiency 347 80676 E55.9 last level 11/13/22 Primary hyperparathyroidism 19112370 E21.0 last Parathyroi d scan 11/13/22 Screening mammography 24 119575 Z12.31 per pt had Mammogram 09/07/22 per pt Screening for malignant neoplasm of cervix 195110897 Z12.4 per pt had PAP 02/2022 Screening for malignant neoplasm of colon 588635798 Z12.11 Per pt last C scope 05/05/22 , good for 10 years Active or passive immunization 373501449 Z23 refuse any shotsgot covid shots [id number] Radhika Hodges MD [facility], [place] [address] [facility] [place] ,[address] [place] [address] 07/02/2023 17:49:34 07/02/2023 19:30:32 Benign hypertension 19027952 I10 per pt had ophth eval 3BP 2-3 weekslast EKG 11/13/22 Body mass index 40+ - severely obese 592895822 Z68.43 education Cough variant asthma 409 137599 J45.991 last PFT 08/15/22 Electrocar diogram abnormal 294487798 R94.31 seen cardiology 05/2023 per pt Obstructiv e sleep apnea of adult 7724565608 103 G47.33 sees pulm once a year , Parathyroid adenoma 1284 31270 D35.1 Lt lowerlast US 06/06/22la st DEXA 06/06/22se en endo Thyroid nodule 773475212 E04.1 last US 06/06/22 , recheck 1 year Vitamin D deficiency 347 23024 E55.9 last level 11/13/22 Screening mammography 24 871556 Z12.31 per pt had Mammogram 09/07/22 per pt Screening for malignant neoplasm of cervix 174005983 Z12.4 per pt had PAP 02/2023 Screening for malignant neoplasm of colon 366450591 Z12.11 Per pt last C scope 05/05/22 , good for 10 years Active or passive immunization 358642447 Z23 refuse any shotsgot covid shots Pain of breast 15190210 N64.4 B/L 513061 Radhika Hodges MD [facility], [place] [address] [facility] [place] ,[address] [address] 11/19/2023 17:22:20 11/19/2023 19:15:15 Adult health examination 701708900 Z00.01 Benign hypertension 1072 5009 I10 per pt had ophth eval 4BP 2-3 weekslast EKG 06/30/23 Body mass index 40+ - severely obese 429827187 Z68.43 educationd douglas surgery Cough variant asthma 409 030258 J45.991 last PFT 08/15/22 Diverticul osis of colon 287711003 K57.30 last C scope 04/2022 Diastolic dysfunction 35 36979 I51.9 last ECHO 12/27/22 Electrocar diogram abnormal 053035577 R94.31 seen cardiology 05/2023 per pt Family his tory of diabetes mellitus 051667896 Z83.3 had GTT 12/2017 Fibrocysti c disease of breast 28753896 N60.19 last mammogram 07/15/21 Gastroesop hageal reflux disease without esophagitis 141036632 K21.9 educationH OB up 30 degree Hypercalcemia 97051283 E 83.52 recheck Obstructiv e sleep apnea of adult 2164924831 103 G47.33 sees pulm once a year , Osteoarthr itis of knee 498119677 M17.0 Rt knee TKR 01/26/20Lt TKR @ [facility] 09/08/18 Peripheral venous insufficiency 37977090 I87.2 education , with swelling Parathyroid adenoma 1284 00517 D35.1 Lt lowerlast US 06/06/22la st DEXA 06/06/22se en endo 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 good now Primary hyperparathyroidism 89426901 E21.0 last Parathyroi d scan 11/13/22 Sinus bradycardia 072582 05 R00.1 Thyroid nodule 737166055 E04.1 last US 11/16/22 , recheck 1 year Trigger fi nger of right hand 1636712731 7235383 M65.30 per hand surgery note Uterine leiomyoma 031875 05 D25.9 asymptomat ic Varicose v eins of lower extremity 80949929 I83.90 support hose Vitamin D deficiency 347 74545 E55.9 last level 11/13/22 Screening mammography 24 243862 Z12.31 per pt had Mammogram 08/03/23 per pt Macromastia 818653720 N6 2 Lt breast Screening for malignant neoplasm of cervix 903764710 Z12.4 per pt had PAP 02/2023 Screening for malignant neoplasm of colon 698939295 Z12.11 Per pt last C scope 05/05/22 , good for 10 years Active or passive immunization 244965127 Z23 refuse any shotsgot covid shots Advance di rective discussed with patient 761073064 Z71.89 education [id number] Radhika Hodges MD [employer] [address] [place] [address] [place] [address] 01/30/2024 11:03:51 01/30/2024 12:17:54 Pain in right foot 2360143922 00856 M79.671 hold levaquin Dysuria 67651617 R30.9 Vaginal irritation 54999 6004 N89.8 [id number] Radhika Hodges MD [place], [place] [address]27[address] [facility] [place] [address] [place] [address] 02/18/2024 17:48:58 02/18/2024 18:45:56 Parathyroid adenoma 112803262 D35.1 Lt lowerlast US 06/06/22la st DEXA 06/06/22se en endo Thyroid nodule 354932839 E04.1 last US 11/16/22 , recheck 1 year Cough 65047748 R05.9 4 weeks Vitamin D deficiency 347 65811 E55.9 last level 12/04/23 Obstructiv e sleep apnea of adult 5632895716 103 G47.33 sees pulm once a year , Mammography abnormal 168 010320 R92.8 last Lt diagnostic 12/17/23 Gastroesop hageal reflux disease without esophagitis 998403501 K21.9 education Benign hypertension 1072 5009 I10 per pt had ophth eval 4BP 2-3 weekslast EKG 06/30/23 Body mass index 40+ - severely obese 163839204 Z68.43 educationd ecline surgery Screening mammography 24 428172 Z12.31 per pt had Mammogram 08/03/23 per pt Screening for malignant neoplasm of cervix 213883867 Z12.4 per pt had PAP 02/2023 Screening for malignant neoplasm of colon 175058037 Z12.11 Per pt last C scope 05/05/22 , good for 10 years Active or passive immunization 566494982 Z23 refuse any shotsgot covid shots Cough variant asthma 409 284344 J45.991 last PFT 11/2023 [id number] Radhika Hodges MD [facility], [facility] [address] [facility] [place] ,[address] [address] 05/21/2024 17:04:17 05/21/2024 18:34:38 Pain in left foot 2409282461 19317 M79.672 Benign hypertension 1072 5009 I10 per pt had ophth eval 4BP 2-3 weekslast EKG 06/30/23 Body mass index 40+ - severely obese 408497756 Z68.43 educationd ecline surgerydow n 18 LBs Cough variant asthma 409 690830 J45.991 last PFT 11/2023 Electrocar diogram abnormal 381057717 R94.31 seen cardiology 05/2023 per pt Obstructiv e sleep apnea of adult 5876568385 103 G47.33 sees pulm once a year , Parathyroid adenoma 1284 12844 D35.1 Lt lowerlast US 06/06/22la st DEXA 06/06/22se en endo Vitamin D deficiency 347 70893 E55.9 last level 12/04/23 Glaucoma 06890746 H40.9 last ophth 03/12/24 Thyroid nodule 278600221 E04.1 last US 03/04/24 , recheck 1 year Cholesterol screening 27 1135827 Z13.220 Screening mammography 24 877994 Z12.31 per pt had Mammogram 12/17/23 per pt Screening for malignant neoplasm of cervix 017934164 Z12.4 per pt had PAP 02/2024 Screening for malignant neoplasm of colon 034697443 Z12.11 Per pt last C scope 05/05/22 , good for 10 years Active or passive immunization 030968797 Z23 refuse any shotsgot covid shots Viral screening 55800299 4 Z11.59 [id number] Radhika Hodges MD [place], [place] [facility] [address] [address] 08/27/2024 17:05:43 08/27/2024 18:42:28 Benign hypertension 39112376 I10 per pt had ophth eval 06/2024 ,pls take BP meds on reg basis ,BP 2-3 weekslast EKG 06/30/23 Gastroesop hageal reflux disease without esophagitis 246024243 K21.9 education Obstructiv e sleep apnea of adult 7852819679 103 G47.33 sees pulm once a year , Osteoarthr itis of knee 893700610 M17.0 Rt knee TKR 01/26/20Lt TKR @ [facility] 09/08/18 Primary hyperparathyroidism 28020907 E21.0 last Parathyroi d scan 11/13/22 Thyroid nodule 158849739 E04.1 last US 03/04/24 , recheck 1 year Vitamin D deficiency 347 83273 E55.9 last level 06/02/24 Body mass index 40+ - severely obese 170093741 Z68.43 educationd ecline surgerydow n 18 LBs Screening mammography 24 882178 Z12.31 per pt had Mammogram 12/17/23 per pt Low back pain 135102776 M54.50 on PT nowbetter nowRTC 3 weeks if not better Screening for malignant neoplasm of cervix 944631093 Z12.4 per pt had PAP 02/2024 Screening for malignant neoplasm of colon 817733916 Z12.11 Per pt last C scope 05/05/22 , good for 10 years Active or passive immunization 642628920 Z23 refuse any shotsgot covid shots [id number] Radhika Hodges MD [place], [place] [address] [facility] ,[address] [place] [address] 02/19/2025 15:59:55 02/19/2025 17:07:25 Adult health examination 789369762 Z00.01 6038238 Benign hypertension 1072 5009 I10 per pt had ophth eval 10/2024pls take BP meds on reg basis ,BP 2-3 weekslast EKG 08/28/24 Electrocar diogram abnormal 382673583 R94.31 seen cardiology 05/2023 per pt Peripheral venous insufficiency 70735237 I87.2 education , with swelling Family his tory of diabetes mellitus 560522727 Z83.3 had GTT 12/2017 Thyroid nodule 220637433 E04.1 last US 03/04/24 , recheck 1 year Primary hyperparathyroidism 35250330 E21.0 last Parathyroi d scan 11/13/22 Body mass index 40+ - severely obese 336711535 Z68.43 educationd ecline surgery Vitamin D deficiency 347 10046 E55.9 last level 06/02/24 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 good now Gastroesop hageal reflux disease without esophagitis 417468413 K21.9 education Diverticul osis of colon 583495994 K57.30 last C scope 04/2022 Uterine leiomyoma 300964 05 D25.9 asymptomat ic Mammography abnormal 168 976553 R92.8 last Lt diagnostic 12/17/23 Osteoarthr itis of knee 675860139 M17.0 Rt knee TKR 01/26/20Lt TKR @ [facility] 09/08/18 Cough variant asthma 409 563581 J45.991 last PFT 11/2023 Obstructiv e sleep apnea of adult 7716065449 103 G47.33 sees pulm once a year , Pigmented skin lesion 20 0841618 D22.9 175892 back Pain of bi lateral hands 6382524976 6276966 M79.641 M79.642 10004262 Screening mammography 24 770742 Z12.31 4282671238 per pt had Mammogram 12/17/23 per pt Cancer cer vix screening status 379213595 Z12.4 309191 per pt had PAP 02/2024 Screening for malignant neoplasm of colon 922431265 Z12.11 450482 Per pt last C scope 05/05/22 , good for 10 years Immunization due 0263362 08 Z23 7554536 refuse any shotsgot covid shots Dry eyes 031374080 H04.1 23 9380109 Rectal pain 08074124 K62 .89 8856 Health Concerns Section Related Observation LastModified by Organization Detai ls LastModified Time None Recorded Concern Status LastModified by Organization Details LastModified Time None Recorded Advance Directives Directive N: Payers Insurance Date Sequence Insurance Name Policy Number Policy Colon Covered Member ID Colon Member ID Guarantor Name 02/18/2025 1 [facility] (O) [id number] Carie Calderón Tri [id number] Carie S Tri Notes Date Note Type Note Provider Name and Address Organization Details Recorded Time 01/30/2024 text/html Hypertension F/UReported by PatientHPIFor medications, patient reportstaking medications as directedandno side effects from medication. For lifestyle, patient reportsregular exercise,limiting/amador iding salt, andcompliant with low salt diet. For associated symptoms, patient reportsno dizziness,no lightheadedness,no chest pain,no shortness of breath,no palpitations,no edema,no calf pain with exertion, andno headache. Rt foot pain 1-2 days after working in the yard yesterdaypain with urination , 2-3 days Radhika Hodges MD [address] [facility] [place] [address], [place], [address], [facility] 01/30/2024 12:16:41 02/18/2024 text/html Hypertension F/UReported by PatientHPIFor medications, patient reportstaking medications as directedandno side effects from medication. For lifestyle, patient reportsregular exercise,limiting/amador iding salt, andcompliant with low salt diet. For associated symptoms, patient reportsno dizziness,no lightheadedness,no chest pain,no shortness of breath,no palpitations,no edema,no calf pain with exertion, andno headache. MD Claudio Yoo [facility] [place] [address], [place], [address], [facility] 02/18/2024 18:25:59 05/21/2024 text/html Hypertension F/UReported by PatientHPIFor medications, patient reportstaking medications as directedandno side effects from medication. For lifestyle, patient reportsregular exercise,limiting/amador iding salt, andcompliant with low salt diet. For associated symptoms, patient reportsno dizziness,no lightheadedness,no chest pain,no shortness of breath,no palpitations,no edema,no calf pain with exertion, andno headache. Lt foot pain , weeks , No injury Radhika Hodges MD [address] [facility] [address], [place], [address], [facility] 05/21/2024 18:25:51 08/27/2024 text/html Hypertension F/UReported by PatientHPIFor medications, patient reportstaking medications as directedandno side effects from medication. For lifestyle, patient reportsregular exercise,limiting/amador iding salt, andcompliant with low salt diet. For associated symptoms, patient reportsno dizziness,no lightheadedness,no chest pain,no shortness of breath,no palpitations,no edema,no calf pain with exertion, andno headache. Radhika Hodges MD [address] [facility] [place] [address], [place], [address], [facility] 08/27/2024 18:07:55 02/19/2025 text/html Medicare Annual Wellness VisitReported by PatientSocial/Behavio ral HistoryFor diet and nutrition, patient reportshealthy diet. For fracture risk, patient reportsno history of fractures,no recent explained fracture,no sudden unexplained fractures, andno previous musculoskeletal injuries. For physical activity, patient reportsexercises on a regular basis,recent increase in physical activity,good physical condition, anddiscussed exercise habits.Mental Status:For depression risk, patient reportsnever feels sad, empty, or tearful,no loss of interest in activities,no significant changes in weight,no sleep disturbances or insomnia,no agitation,no loss of energy,no feelings of worthlessness or guilt,no thoughts of suicide,no history of depression, andno history of mood disorders. For orientation, patient reportsno disorientation to time,no disorientation to date, andno disorientation to place. For concentration and memory, patient reportsno decreased concentrating ability,no memory lapses or loss, anddoes not forget words. For speech/motor difficulties, patient reportsno speech difficulties,no difficulty expressing formulated concepts,no difficulty with fine manipulative tasks,no difficulty writing/copying,no slowed reaction time, anddoes not knock things over when trying to pick them up.Functional AbilityFor hearing, patient reportsno loss of hearing. For vision, patient reportsno vision problems. For activities of daily living, patient reportsable to bathe with limited or no assistance,able to contol urination and bowels,able to dress with limited or no assistance,able to feed self with limited or no assistance,able to get out of chair or bed with limited or no assistance,able to groom with limited or no assistance, andable to toilet with limited or no assistance. For instrumental activities of daily living, patient reportsable to do house work with limited or no assistance,able to grocery shop with limited or no assistance,able to manage medications with limited or no assistance,able to manage money with limited or no assistance,able to prepare meals with limited or no assistance, andable to use the phone with limited or no assistance. For falls risk assessment, patient reportsno frequent falls while walking,no fall in the past year,no fall since last visit, andno dizziness/vertigo. For home safety, patient reportsuse of seatbeltsandno vision or hearing loss while driving. Hypertension F/UReported by PatientHPIFor medications, patient reportstaking medications as directedandno side effects from medication. For lifestyle, patient reportsregular exercise,limiting/amador iding salt, andcompliant with low salt diet. For associated symptoms, patient reportsno dizziness,no lightheadedness,no chest pain,no shortness of breath,no palpitations,no edema,no calf pain with exertion, andno headache. Radhika Hodges MD [address] [facility] [address] [facility], [place], [address], [facility] 02/19/2025 17:05:52 OBGyn Episode No OBEpisode recorded.
--- OUTSIDE RECORDS SUMMARY | 2025-05-22 00:58 | XMS_ITS | Clinical Summary ---
Author Organization [facility] Address [address] [place] [address] Care Team Providers Care Job Development Specialist Name Role Phone Patricia Hannon MD Primary Care Provider [phone] Allergies Active Allergy Reactions Criticality Noted Date Comments Amoxicillin GI Upset 03/18/2022 Aspirin Other (see comment),GI Upset,Nausea and Vomiting,Unknown Low 05/13/2018 bleed Azithromycin Hives High 08/29/2019 Erythromycin Rash,Hives,Itching High 02/24/2016 Reaction: HIVES Meloxicam Nausea and Vomiting 10/11/2016 Penicillins Other (see comment),Rash,Hives Low 02/24/2016 Reaction: OTHER REACTION, Pollen Extract Other (see comment) 03/18/2022 Reaction: OTHER REACTION, Povidone Iodine Other (see comment) Low 05/13/2018 BECAUSE OF SHELLFISH ALLERGY Prednisone Other (see comment) 03/18/2022 Feel bad and sick to stomach Prochlorperazine Shortness of Breath,Unknown,Other (see comment) High 08/29/2019 Shellfish-Derived Products Anaphylaxis High 03/18/2022 Shrimp Extract Swelling Medium 05/01/2022 Tetracycline Rash,Itching Low 02/24/2016 Reaction: RASH Tetracyclines & Related Hives,Itching,Rash High 07/02/2016 Medications albuterol sulfate HFA 108 (90 Base) MCG/ACT inhaler Inhale 2 puffs into the lungs every 6 (six) hours as needed for Wheezing. 2 Active fluticasone propionate (FLONASE) 50 MCG/ACT nasal spray 2 sprays by Each Nostril route daily. 2 Active furosemide (LASIX) 20 MG tablet Take 20 mg by mouth daily. 2 Active losartan (COZAAR) 50 MG tablet Take 50 mg by mouth daily. 2 Active metFORMIN (GLUCOPHAGE) 500 MG tablet Take 500 mg by mouth 2 (two) times daily with meals. 2 Active WEGOVY 0.5 MG/0.5ML Solution Auto-injector Inject 0.5 mg into the skin weekly. 2 Active timolol (TIMOPTIC) 0.5 % ophthalmic solution Place 1 drop into both eyes daily. 2 Active acetaminophen (TYLENOL) 325 MG tablet Take 2 tablets (650 mg total) by mouth every 4 (four) hours as needed for Pain. 30 tablet 2 Active senna-docusate (SENOKOT-S) 8.6-50 MG tablet Take 1 tablet by mouth 2 (two) times daily. 60 tablet 2 Active Additional Information Patient not taking.Reported on 10/09/2022 pantoprazole EC (PROTONIX) 40 MG tablet Take 1 tablet (40 mg total) by mouth 2 (two) times daily. 60 tablet 1 2 Active calcium carbonate (TUMS) 500 MG chewable tablet Chew 1 tablet (500 mg total) by mouth 3 (three) times daily as needed for Heartburn. 90 tablet 2 Active famotidine (PEPCID) 20 MG tablet Take 1 tablet (20 mg total) by mouth nightly at bedtime. 90 tablet 2 Active Additional Information Patient not taking.Reported on 10/09/2022 Multiple Vitamins-Obion als (PRESERVISION AREDS 2+MULTI VIT OR) 2 (two) times a day. Active traMADol (ULTRAM) 50 MG tabletIndicati ons:Acute Pain < 3 Day Supply Take 1 tablet (50 mg total) by mouth every 6 (six) hours as needed for Pain. Indications: Acute Pain < 3 Day Supply 12 tablet 2 Active Additional Information Patient not taking.Reported on 10/09/2022 Cholecalcifero l (VITAMIN D) 50 MCG (1999 [place]) CapIndications :Low serum vitamin D Take 1 each by mouth daily. 30 capsule 2 Active semaglutide (OZEMPIC) 2 MG/1.5ML injection (PEN) Ozempic 0.25 mg or 0.5 mg (2 mg/1.5 mL) subcutaneous pen injector INJECT 0.5 MG SUBCUTANEOUSLY EVERY WEEK Active guaiFENesin ER (MUCINEX) 600 MG 12 hr tablet Take 2 tablets (1,200 mg total) by mouth 2 (two) times daily. 28 tablet 3 Active Active Problems Problem Noted Date Diagnosed Date Multinodular goiter 10/09/2022 Hypertension 03/23/2022 Hyperparathyroidism, unspecified ([facility]) 03/23 Asthma ([facility]) 03/23/2022 Obesity, unspecified 03/23/2022 Abdominal visceral abscess ([facility]) Resolved Problems Problem Noted Date Diagnosed Date Resolved Date Thyroid nodule 10/09/2022 10/09/2022 Immunizations Immunization Administration Dates Next Due COVID-19 Vaccine (Generic) 12/10/2020 Dtp (Generic) 09/12/1991, 2,12/25/1980,1979,01/29/1980 Influenza Adult (Generic) 08/07/2019,08/07/2018 MMR (MMRII) 09/12/1991 Polio Opv (Generic) 12/25/1986, 2,05/11/1980,1979 Shingrix 05/12/2021,08/07/2019 Td, Adsorbed, Preservative F ree, Adult Use, Lf Unspecified 05/10/2018 Tdap (Generic) 08/07/2018, 8,05/09/2018,2017,01/17/2018 Family History Medical History Relation Comments Diabetes type II Brother Accidental Father Breast Cancer Maternal Aunt 60's Cervical cancer Mother Relation Status Comments Brother Alive Father Maternal Aunt Alive Mother Social History Tobacco Use Types Packs/Day Years Used Date Smoking Tobacco: Never Smokeless Tobacco: Never Alcohol Use Standard Drinks/Week Comments Never 0 (1 standard drink = 0.6 oz pur e alcohol) PHQ-2 Answer Date Recorded Patient Health Questionnaire-2 Score 0 10/09/2022 Comments No Sex and Gender Information Value Date Recorded Sex Assigned at Not on file Legal Sex Female 1:00 PM PAYABLE PROCESSOR Gender Identity Not on file Sexual Orientation Not on file Last Filed Vital Signs Vital Sign Reading Time Taken Comments Blood Pressure 121/97 11/05/2022 1:24 PM CDT Pulse 59 11/05/2022 1:24 PM CDT Temperature 36.4 C (97.5 F) 11/05/2022 1:24 PM CDT Respiratory Rate 20 11/05/2022 1:24 PM CDT Oxygen Saturation 98% 11/05/2022 1:24 PM CDT Inhaled Oxygen Concentration - - Weight 170.1 kg (375 lb) 11/05/2022 1:24 PM CDT Height 177.8 cm (5' 10) 11/05/2022 1:24 PM CDT Body Mass Index 53.81 11/05/2022 1:24 PM CDT Plan of Treatment Upcoming Encounters Date Type Department Care Team (Late st Contact Info) Description 06/01/2025 2:00 PM CDT Appointment [facility] Ultrasound [place], [place] [id number] Marty Arias MD [address] [place] [id number] Health Maintenance Due Date Last Done Comments Cervical Cancer Screening Pap Smear (Age 30 to 64) Every 3 Years 1967 Colorectal Cancer Screening Colonoscopy (10 Years) 1967 Annual Physical 1970 Hepatitis C 1985 Hepatitis B Vaccines (1 of 3 - 19+ 3-dose series) 1986 Pneumococcal Vaccine: 50+ Years (1 of 2 - PCV) 1986 Cervical Cancer Screening Pap with HPV Testing (Age 30 to 64) Every 5 Years 1997 Cervical Cancer Screening with HPV 1997 COVID-19 Vaccine ( season) 2025 08/22/2021, 12/10/2020, 12/10/2020, Additional history exists Influenza Adult (#1) 2025 08/07/2019, 08/07/20 18 Mammogram Screening 12/03/2025 12/04/2023, 08/03/2023, 09/07/2022, Additional history exists DTaP, Tdap and Td Vaccines (12 - Td or Tdap) 08/07/2028 08/07/2018, 05/10/2018, 05/10/2018, Additional history exists Zoster Vaccines Completed 05/12/2021, 08/07/2019 Meningococcal B Vaccine Aged Out No l onger eligible based on patient's age to complete this topic Meningococcal Vaccine Aged Out No flash bhupendra eligible based on patient's age to complete this topic RSV Immunizations Under 20 Months Aged Out No longer eligible based on patient's age to complete this topic Goals Goal Patient Goal Type Associated Problems Recent Progress Patient-Stated? Author Family - family caregiver with be involved in care transitions and discharge planning General No Nayely Son, [employer] Procedures Procedure Name Priority Date/Time Associated Diagnosis Comments MG DIAG W SANTI LT DIGI Routine 12/04/2023 10:35 AM CDT Hypertrophy of breast from Last 3 Months or Most Recently Relevant to Health Maintenance Results * MG DIAG W SANTI LT DIGI (12/04/2023 10:35 AM CDT) Anatomical Region Laterality Modality Breast Left Mammography 12/04/2023 10:4 1 AM CDT Impressions 12/04/2023 10:45 AM CDT IMPRESSION: No significant interval change, localizing abnormality, or mammographic evidence of malignancy. Recommend clinical follow-up as a benign/negative image evaluation should not delay/preclude biopsy of a clinically suspicious finding. Routine screening mammography bilaterally in 8 months. RECOMMENDATION: As discussed in reportLeft Findings, impression, and recommendation were discussed with the patient immediately following exam completion. OVERALL IMAGING ASSESSMENT: ACR BI-RADS 2 - BENIGN FINDING(S). Ordered By: PATRICIA HANNON Interpreted By: Josemanuel Rdz, 12/04/2023 10:41 AM Narrative 12/04/2023 10:45 AM CDT EXAMINATION: MG BETTY W SANTI LT DIGI INDICATIONS: Macromastia TECHNIQUE: Digital full field CC, ML, and MLO diagnostic views of the left breast to include 3-D Tomosynthesis technique. This study was read with the assistance of a computer-aided detection system. HISTORY: Patient presents with left breast enlargement x1 month. No palpable lump, skin changes, or nipple discharge. Prior left breast biopsy. Family history of breast cancer. No personal or first-degree family history of breast cancer. COMPARISON: 08/03/2023, 09/07/2022, 07/15/2021, and 05/19/2020. TISSUE DENSITY: There are scattered areas of fibroglandular density. FINDINGS: Biopsy clip at the outer middle depth breast. Few typically benign round calcifications. No suspicious microcalcification or mass. No developing asymmetry or architectural distortion. No dermal thickening, trabeculation, or axillary adenopathy. Patricia Hannon MD MAMMO Final Result from Last 3 Months or Most Recently Relevant to Health Maintenance Insurance [facility] Advance Directives * Full Code (Latest Code Status on File) Date Activated Date Inactivated Comments 03/18/2022 9:17 PM 03/27/2022 3:56 PM Care Teams Job Development Specialist Relationship Specialty Start Date End Date Patricia Hannon MD [address] [facility] [address] [place] [address] PCP - General INTERNAL MEDICINE 05/18/22
--- OUTSIDE RECORDS SUMMARY | 2025-05-22 00:58 | XMS_ITS | Encounter Summary ---
Author Organization [facility] Address [address] [place] [address] Phone Care Team Providers Care Yarn Wrapper Name Role Phone Ashli Sosa MD Unavailable [phone] Scot Gibson MD Primary Care Provider Radhika Hannon MD Primary Care Provider [phone] Encounter Details Date Type Department Care Team (Latest Contact Info) Description 01/30/2024 Orders Only [facility] Scanning, Provider Social History Tobacco Use Types Packs/Day Years Used Date Smoking Tobacco: Never Smokeless Tobacco: Never Alcohol Use Standard Drinks/Week Comments No 0 (1 standard drink = 0.6 oz pur e alcohol) AUDIT-C Answer Date Recorded Q1: How often do you have a drink containing alc ohol? 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 Gender Identity Not on file Sexual Orientation Not on file documented as of this encounter Plan of Treatment Not on file documented as of this encounter Procedures Procedure Name Priority Date/Time Associated Diagnosis Comments SCAN - LABS 01/30/2024 documented in this encounter Results * SCAN - LABS (01/30/2024) us Provider Scanning Final Result documented in this encounter Visit Diagnoses Not on filedocumented in this encounter Care Teams Yarn Wrapper Relationship Specialty Start Date End Date Scot Gibson MD PCP - General Endocrinology Diabetes & Metabolism 10/10/22 08/27/24 Radhika Hannon MD [address] [facility] [address] [place] [address] PCP - General Internal Medicine 08/28/24 Ashli Sosa MD Referring Physician Obstetrics and Gynecology 01/23/18 documented as of this encounter
--- OUTSIDE RECORDS SUMMARY | 2025-05-22 00:58 | XMS_ITS | Encounter Summary ---
Author Organization [facility] Care Team Providers Care Civil Engineer Helper Name Role Phone Roula Dutton MD Primary Care Provider + [phone] Roula Dutton MD Primary Care Provider + [phone] Rodrigue Munoz MD Primary Care Provider [phone] Ashli Sosa MD Unavailable [phone] Radhika Hannon MD Primary Care Provider + [phone] Scot Gibson MD Primary Care Provider [phone] Radhika Hannon MD Primary Care Provider + [phone] Encounter Details Date Type Department Care Team (Latest Contact Info) Description 10/02/2016 Orders Only [facility] CLINCON[facility] ProviderAriana MD [address] [place] [address] Social History Tobacco Use Types Packs/Day Years Used Date Smoking Tobacco: Never Assessed Comments Unknown Sex and Gender Information Value Date Recorded Sex Assigned at Not on file Legal Sex Female 5:08 PM GROUND LAYER Gender Identity Not on file Sexual Orientation Not on file documented as of this encounter Plan of Treatment Not on file documented as of this encounter Procedures Procedure Name Priority Date/Time Associated Diagnosis Comments PROCEDURE - RESULT 10/18/2016 12 :00 AM GROUND LAYER SCAN - PATHOLOGY 10/06/2016 12:0 0 AM GROUND LAYER documented in this encounter Results * PROCEDURE - RESULT (10/18/2016 12:00 AM GROUND LAYER) Narrative 10/18/2016 12:00 AM GROUND LAYER Ordered by an unspecified provider. us Historical Provider MD Final Res ult * SCAN - PATHOLOGY (10/06/2016 12:00 AM GROUND LAYER) Narrative 10/06/2016 12:00 AM GROUND LAYER Ordered by an unspecified provider. Historical Provider Final Res ult documented in this encounter Visit Diagnoses Not on filedocumented in this encounter Additional Health Concerns Infection Onset Date Last Indicated Resolved Time COVID: Suspected 03/04/2022 03/04/2022 03/04/2022 1:17 PM CDT COVID: Suspected 03/13/2022 03/13/2022 03/14/2022 3:05 AM CDT documented as of this encounter Care Teams Civil Engineer Helper Relationship Specialty Start Date End Date Roula Dutton MD [address] [place] [address] PCP - General 02/08/17 08/09/17 Roula Dutton MD [address] [place] [address] PCP - General 08/10/17 11/11/17 Rodrigue Munoz MD [address] [place] [address] PCP - General 11/12/17 03/13/18 Radhika Hannon MD [address] [place] [address] PCP - General Internal Medicine 03/14/18 10/09/22 Scot Gibson MD [address] [place] [address] PCP - General Endocrinology Diabetes & Metabolism 10/10/22 08/27/24 Radhika Hannon MD [address] [place] [address] PCP - General Internal Medicine 08/28/24 Ashli Sosa MD [address] [place] [address] Referring Physician Obstetrics and Gynecology 01/23/18 documented as of this encounter
--- OUTSIDE RECORDS SUMMARY | 2025-05-22 00:58 | XMS_ITS | Clinical Summary ---
Author Organization [facility] Address [address] [facility] [place] [address] Care Team Providers Care Fuse Cup Expander Name Role Phone Ankit Barton DO Unavailable Radhika Hannon MD Primary Care Provider [phone] Source Comments [facility],non-owned Affiliates and Associated Physician Practices is amultiple site organization consisting of ambulatory clinics and hospital sitesin [place], [place], [place] and [place]. This disclosure is being madepursuant to the Care Everywhere program and may not contain all information available regarding this patient. Last updated 18.[facility] Allergies Active Allergy Reactions Criticality Noted Date Comments Aspirin GI Discomfort 05/13/2018 Erythromycin Itching 02/24/2016 Povidone Iodine Other 05/13/2018 BECAUSE OF SHELLFISH ALLERGY Meloxicam Nausea and/or Vomiting 10/11/2016 Penicillins Urticaria 02/24/2016 Pollen Extract Other Reaction: OTHER REACTION, Prochlorperazine Unknown Low Reaction: OTHER REACTION, Shellfish Other Reaction: OTHER REACTION Tetracycline Itching 02/24/2016 Medications * Be aware that medications may not be up to date on this document. Alwaysverify current medications with the patient. VENTOLIN HFA 108 (90 BASE) MCG/ACT inhaler Reported on 10/11/2016 3 6 Active furosemide (LASIX) 20 MG tablet 20 mg 7 Active timolol as hemihydrate (BETIMOL) 0.5 % ophthalmic solution Betimol 0.5 % eye drops DAILY Active RESTASIS MULTIDOSE 0.05 % ophthalmic suspension 0 8 Active fluticasone propionate (FLONASE) 50 MCG/ACT nasal spray fluticasone 50 mcg/actuation nasal spray,suspensio n Active lisinopril-hydro CHLOROthiazide (PRINZIDE; ZESTORETIC) 10-12.5 MG tablet Take 0.5 tablets every day by oral route for 30 days. Active vitamin D, ergocalciferol, (DRISDOL) 70799 UNITS capsule 0 8 Active KRILL OIL PO 1 qd Active Multiple Vitamins-Mineral s (PRESERVISION AREDS 2 PO) 1 tab qd Active Active Problems Problem Noted Date Diagnosed Date Primary osteoarthritis of both knees 03/17/2016 Social History Tobacco Use Types Packs/Day Years Used Date Smoking Tobacco: Never Smokeless Tobacco: Never Alcohol Use Standard Drinks/Week Comments No 0 (1 standard drink = 0.6 oz pur e alcohol) Comments Unknown Sex and Gender Information Value Date Recorded Sex Assigned at Not on file Legal Sex Female 2:47 PM CDT Gender Identity Not on file Sexual Orientation Not on file Last Filed Vital Signs Vital Sign Reading Time Taken Comments Blood Pressure - - Pulse - - Temperature - - Respiratory Rate - - Oxygen Saturation - - Inhaled Oxygen Concentration - - Weight 165 kg (363 lb 12.8 oz) 05/13/2018 9:29 A M CDT Height 177.8 cm (5' 10) 05/13/2018 9:29 AM CDT Body Mass Index 52.2 05/13/2018 9:29 AM CDT Plan of Treatment Health Maintenance Due Date Last Done Comments COLOGUARD (AGES 45-75) - COL ON CA SCREENING 1967 COLON MONITORING 1967 COLONOSCOPY - COLON CA SCREENING 1967 CT COLONOGRAPHY - COLON CA SCREENING 1967 Colorectal Cancer Screening 1967 FIT - COLON CA SCREENING 1967 FLEX SIG - COLON CA SCREENING 1967 LIPID TESTING 1967 HIV SCREENING 1982 HEPATITIS C SCREENING 09/01/1985 DTAP/TDAP/TD VACCINES (1 - Tdap) 1986 HEPATITIS B VACCINE (1 of 3 - 19+ 3-dose series) 1986 PNEUMOCOCCAL VACCINE 50+ (1 of 1 - PCV) 2017 ZOSTER VACCINE (1 of 2) 2017 MAMMOGRAM 03/26/2020 03/26/2018 DEPRESSION SCREENING 08/20/2024 COVID-19 VACCINE (2 - 2024-2 6 season) 2025 11/15/2020 INFLUENZA VACCINE (#1) 2025 , 08/07/2018 HIB VACCINE Aged Out No longer eligi ble based on patient's age to complete this topic HPV VACCINE Aged Out No longer eligi ble based on patient's age to complete this topic MENINGOCOCCAL (Group B) VACCINE SHARED DECISION-MAKING Aged Out No longer eligible based on patient's age to complete this topic MENINGOCOCCAL GROUPS A/C/Y/W VACCINE Aged Out No longer eligible b ased on patient's age to complete this topic Insurance ANTHEM ANTHEM Care Teams Fuse Cup Expander Relationship Specialty Start Date End Date Radhika Hannon MD [address] [facility] [address] [place] [address] PCP - General Internal Medicine 05/13/18 Ankit Barton DO Orthopedic Surgery 02/24/16
--- OUTSIDE RECORDS SUMMARY | 2025-05-22 00:58 | XMS_ITS | Encounter Summary ---
Author Organization [facility] Facility Care Team Providers Care Controls Technician Name Role Phone Roula Dutton MD Primary Care Provider + [phone] Roula Dutton MD Primary Care Provider + [phone] Rodrigue Munoz MD Primary Care Provider [phone] Ashli Sosa MD Unavailable [phone] Radhika Hannon MD Primary Care Provider [phone] Scot Gibson MD Primary Care Provider [phone] Radhika Hannon MD Primary Care Provider + [phone] Encounter Details Date Type Department Care Team (Latest Contact Info) Description 08/03/2017 Orders Only [facility]INCON[facility] ProviderAriana MD [address] [place] [address] Social History Tobacco Use Types Packs/Day Years Used Date Smoking Tobacco: Never Assessed Comments Unknown Sex and Gender Information Value Date Recorded Sex Assigned at Not on file Legal Sex Female 5:08 PM FRAME STYLIST Gender Identity Not on file Sexual Orientation Not on file documented as of this encounter Plan of Treatment Not on file documented as of this encounter Procedures Procedure Name Priority Date/Time Associated Diagnosis Comments CARDIOLOGY REPORT 08/03/2017 12: 00 AM FRAME STYLIST documented in this encounter Results * CARDIOLOGY REPORT (08/03/2017 12:00 AM FRAME STYLIST) Anatomical Region Laterality Modality Other Narrative 08/03/2017 12:00 AM FRAME STYLIST Ordered by an unspecified provider. us Historical Provider [facility] RASHID ADRIAN Final Result documented in this encounter Visit Diagnoses Not on filedocumented in this encounter Additional Health Concerns Infection Onset Date Last Indicated Resolved Time COVID: Suspected 03/04/2022 03/04/2022 03/04/2022 1:17 PM CDT COVID: Suspected 03/13/2022 03/13/2022 03/14/2022 3:05 AM CDT documented as of this encounter Care Teams Controls Technician Relationship Specialty Start Date End Date Roula Dutton MD [address] [place] [address] PCP - General 02/08/17 08/09/17 Roula Dutton MD [address] [place] [id number] PCP - General 08/10/17 11/11/17 Rodrigue Munoz MD [address] [place] [address] PCP - General 11/12/17 03/13/18 Radhika Hannon MD [address] [place] [address] PCP - General Internal Medicine 03/14/18 10/09/22 Scot Gibson MD [address] [place] [address] PCP - General Endocrinology Diabetes & Metabolism 10/10/22 08/27/24 Radhika Hannon MD [address] [facility] [address] [place] [address] PCP - General Internal Medicine 08/28/24 Ashli Sosa MD [address] [place] [address] Referring Physician Obstetrics and Gynecology 01/23/18 documented as of this encounter
--- OUTSIDE RECORDS SUMMARY | 2025-05-22 00:58 | XMS_ITS | Clinical Summary ---
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 Gender Identity Not on file Sexual Orientation Not on file Plan of Treatment Health Maintenance Due Date Last Done Comments Hepatitis C Virus (HCV) Screening 1967 Hepatitis B Immunization (1 of 3 - 19+ 3-dose series) 1986 Pap Smear 1988 Cervical Cancer Screening (CCS) 1997 HPV/Cotest 1997 Cologuard 2012 Colonoscopy 2012 Colorectal Cancer Screening 2012 Immunochemical Fecal Occult Blood 2012 Pneumococcal Immunization (50+ years) (1 of 1 - PCV) 2017 Zoster Immunization (1 of 2) 2017 Influenza Immunization (#1) 2025 SARS-COV-2 Immunization ( season) 2025 08/22/2021, 12/10/2020, 11/15/2020 Respiratory Syncytial Virus (RSV) Immunization (Adult) (1 - 1-dose 75+ series) 2042 DTaP/Tdap/Td Immunization Discontinued 2017, 09/12/1991, 04/08/1982, Additional history exists TdaP Immunization Completed 05/09/2018 Human Papillomavirus (HPV) Immunization Aged Out No longer eligible based on patient's age to complete this topic Meningococcal Immunization (ACWY) Aged Out No longer eligible based on patient's age to complete this topic Rotavirus Immunization Aged Out No lo nger eligible based on patient's age to complete this topic
--- OUTSIDE RECORDS SUMMARY | 2025-05-22 00:58 | XMS_ITS | Encounter Summary ---
Author Organization [facility] Address [address] [place] [address] Care Team Providers Care Field Human Resources Manager Name Role Phone Radhika Hannon MD Primary Care Provider [phone] Encounter Details Date Type Department Care Team (Late st Contact Info) Description 02/14/2023 MyChart Message Enc [facility] [address] [place], [place] [address] [place], [facility] Provider Air Quality Message Social History Tobacco Use Types Packs/Day Years Used Date Smoking Tobacco: Never Smokeless Tobacco: Never Alcohol Use Standard Drinks/Week Comments Never 0 (1 standard drink = 0.6 oz pur e alcohol) PHQ-2 Answer Date Recorded Patient Health Questionnaire-2 Score 0 10/09/2022 Comments No Sex and Gender Information Value Date Recorded Sex Assigned at Not on file 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 Answer Date of Assessment Author Status No 03/19/2022 12:09 AM CDT Acti ve * Do you have serious difficulty walking or climbing stairs? Answer Date of Assessment Author Status No 03/19/2022 12:09 AM CDT Fabio Sharma RN Active * Do you have difficulty dressing or bathing? Answer Date of Assessment Author Status No 03/19/2022 12:09 AM CRISTIANT Fabio Sharma RN Active * Because of a physical, mental, or emotional condition, do you have difficulty doing errands alone such as visiting a doctor's office or shopping? Answer Date of Assessment Author Status No 03/19/2022 12:09 AM CRISTIANT Fabio Sharma RN Active documented as of this encounter Mental Status * Because of a physical, mental, or emotional condition, do you have serious difficulty concentrating, remembering, or making decisions? Answer Entry Date Author Status No 03/19/2022 12:09 AM CRISTIANT Fabio Sharma RN Active documented in this encounter Plan of Treatment Upcoming Encounters Date Type Department Care Team (Late st Contact Info) Description 06/01/2025 2:00 PM CDT Appointment [facility] [address] [place] [address] Marty Arias MD [facility] [address] [place] [address] documented as of this encounter Goals Goal Patient Goal Type Associated Problems Recent Progress Patient-Stated? Author Family - family caregiver with be involved in care transitions and discharge planning General No Nayely Son, MEMBER SERVICES REPRESENTATIVE documented as of this encounter Visit Diagnoses Not on filedocumented in this encounter Care Teams Field Human Resources Manager Relationship Specialty Start Date End Date Radhika Hannon MD [address] [facility] [address] [place] [address] PCP - General INTERNAL MEDICINE 05/18/22 documented as of this encounter
--- OUTSIDE RECORDS SUMMARY | 2025-05-22 00:59 | XMS_ITS | Encounter Summary ---
Author Organization [facility] Address [address] [place] [address] Phone Care Team Providers Care Dermatology Nurse Name Role Phone Ashli Sosa MD Unavailable [phone] Radhika Hannon MD Primary Care Provider [phone] Scot Gibson MD Primary Care Provider [phone] Radhika Hannon MD Primary Care Provider [phone] Encounter Details Date Type Department Care Team (Latest Contact Info) Description 11/02/2018 Orders Only [facility] Scanning, Provider Social History Tobacco Use Types Packs/Day Years Used Date Smoking Tobacco: Never Smokeless Tobacco: Never Alcohol Use Standard Drinks/Week Comments No 0 (1 standard drink = 0.6 oz pur e alcohol) Comments No Sex and Gender Information Value Date Recorded Sex Assigned at Not on file 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 Gender Identity Not on file Sexual Orientation Not on file documented as of this encounter Plan of Treatment Not on file documented as of this encounter Procedures Procedure Name Priority Date/Time Associated Diagnosis Comments SCAN - LABS 11/02/2018 documented in this encounter Results * SCAN - LABS (11/02/2018) us Provider Scanning Final Result documented in this encounter Visit Diagnoses Not on filedocumented in this encounter Additional Health Concerns Infection Onset Date Last Indicated Resolved Time COVID: Suspected 03/04/2022 03/04/2022 03/04/2022 1:17 PM CDT COVID: Suspected 03/13/2022 03/13/2022 03/14/2022 3:05 AM CDT documented as of this encounter Care Teams Dermatology Nurse Relationship Specialty Start Date End Date Radhika Hannon MD [address] [place] [address] PCP - General Internal Medicine 03/14/18 10/09/22 Scot Gibson MD [address] [place] [address] PCP - General Endocrinology Diabetes & Metabolism 10/10/22 08/27/24 Radhika Hannon MD [address] [place] [address] PCP - General Internal Medicine 08/28/24 Ashli Sosa MD Referring Physician Obstetrics and Gynecology 01/23/18 documented as of this encounter
--- OUTSIDE RECORDS SUMMARY | 2025-05-22 00:59 | XMS_ITS | Clinical Summary ---
Author Organization [facility] Address [address] [place] [address] Care Team Providers Care Bodily Injury Adjuster Name Role Phone Ashli Sosa MD Unavailable [phone] Radhika Hannon MD Primary Care Provider [phone] Allergies Active Allergy Reactions Criticality Noted Date Comments Aspirin Unknown Azithromycin Hives Medium Erythromycin Hives Reaction: HIVES Penicillins Other (See comments) Reaction: OTHER REACTION, Pollen Extracts Other (See comments) Reaction: OTHER REACTION, Povidone-Iodine Other (See comments) Low 05/13/2018 BECAUSE OF SHELLFISH ALLERGY Prochlorperazine Other (See comments) Low Reaction: OTHER REACTION, Shellfish Containing Products Other (See comments) Reaction: OTHER REACTION, Shrimp Swelling Medium 05/01/2022 Tetracycline Rash Reaction: RASH Medications VENTOLIN HFA 90 mcg/actuation inhaler 7 Active acetaminophen (TYLENOL) 500 mg tablet Take 1 tablet (500 mg total) by mouth every 6 (six) hours as needed for pain. 30 tablet 7 Active furosemide (LASIX) 20 mg tablet 1 tablet (20 mg total) daily. 7 Active timoloL (BETIMOL) 0.5 % ophthalmic solution Betimol 0.5 % eye drops Active vit A/C/E ac/ZnOx/cupric oxide (EYE VITAMIN AND MINERALS ORAL) Take 2 tablets by mouth daily Active pantoprazole DR (PROTONIX) 40 mg EC tabletIndication s:Laryngopharyng eal reflux (LPR) Take 1 tablet (40 mg total) by mouth 2 (two) times a day 60 tablet 3 2 Active Additional Information Patient taking differently:40 mg oral 2 times daily,Last dose 05/04/22, Reported on 12/04/2022 losartan (COZAAR) 50 mg tablet Take 1 tablet (50 mg total) by mouth daily Active cholecalciferol (VITAMIN D-3) 50,000 unit capsule Take 1 capsule (50,000 Units total) by mouth once a week 3 Active guaiFENesin ER (MUCINEX) 600 mg 12 hr tablet Take 2 tablets (1,200 mg total) by mouth 2 (two) times a day as needed 3 Active timolol (TIMOPTIC) 0.5 % ophthalmic solution 3 Active famotidine (PEPCID) 20 mg tablet Take 1 tablet (20 mg total) by mouth daily Active semaglutide (WEGOVY) 0.25 mg/0.5 mL auto-injectorInd ications:Class 3 severe obesity with body mass index (BMI) of 50.0 to 59.9 in adult, unspecified obesity type, unspecified whether serious comorbidity present Inject 0.5 mL (0.25 mg total) under the skin every 7 days 2 mL 4 Active Active Problems Problem Noted Date Diagnosed Date Trigger finger of right thumb 07/12/2022 Right hand pain 07/12/2022 Hypertension 03/23/2022 Abdominal visceral abscess 03/18/2022 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 The patient denied want of an ABG at this time. Assessment & Plan (09/07/2021 3:34 PM COLORED LEATHER SETTER): The patient was explained that the increase in her CO2 on her recent CMP could be related to her fasting and also her weight. The patient was encouraged to increase the use of her CPAP. Patient was offered an ABG but would like to hold off until her next visit. Cough variant asthma 08/11/2021 Sinus bradycardia 08/11/2021 Laryngopharyngeal reflux (LPR) 05/12/2021 Thyroid nodule 02/21/2021 Parathyroid adenoma 12/11/2020 COVID-19 09/09/2020 History of total knee replacement 10/29/2019 Hypercalcemia 09/04/2019 Hyperparathyroidism 09/04/2019 Diastolic dysfunction 05/23/2019 Prediabetes 04/20/2018 Assessment & Plan (08/27/2018 4:28 PM COLORED LEATHER SETTER): Continue low-carb (<150 g/day), low-glycemic diet. Reviewed importance of adequate protein intake of 1-1.2 g/kg IBW/day. Check A1c with labs for PCP. Assessment & Plan (07/17/2018 1:53 PM COLORED LEATHER SETTER): Continue low-carb (<150 g/day), low-glycemic diet. Stop Trulicity. Liraglutide 3 mg daily. Assessment & Plan (05/13/2018 9:14 PM CDT): Continue low-carb (<150 g/day), low-glycemic diet. Start Trulicity (previously told not covered, but she spoke to pharmacy while I the room with me and they said her prescription was ready for pick-up with no charge to her.) If Trulicity not covered discussed using Saxenda samples. Discussed that if she tolerates, taking metformin in addition would be a good idea. Assessment & Plan (04/20/2018 10:40 PM CDT): Discussed insulin resistance including affect on weight and risk for progression to diabetes. Recommended low-carb, low-glycemic diet; choose whole grains and avoid more highly processed carbohydrates. Discussed potential benefits of this w/r/t gut microbiome. Referred to ADA and [facility] websites for additional information on topics including glycemic index/carbohydrate choices, protein sources. Start Trulicity -- given 2 sample pens 0.75 mg weekly; Rx sent for 1.5 mg weekly. Discussed risks, benefits, alternatives, potential side effects. Reviewed use of pen with demo pen and referred to website for additional information. Dyspnea on exertion 04/10/2018 Weight loss counseling, encounter for 03/17/2018 Assessment & Plan (08/27/2018 4:18 PM COLORED LEATHER SETTER): Reviewed calorie restriction based on BMR as previously detailed. Okay to follow WW points. Reviewed recommendation/goal of >/= 150 minutes/week moderate-intensity aerobic exercise. Assessment & Plan (07/17/2018 1:49 PM COLORED LEATHER SETTER): Reviewed calorie restriction based on BMR as previously detailed. Reviewed recommendation/goal of >/= 150 minutes/week moderate-intensity aerobic exercise. Asked to keep detailed food diary for at least 1 week and bring to next visit. Assessment & Plan (05/13/2018 4:13 PM CDT): Reviewed calorie restriction based on BMR as previously detailed. Reviewed recommendation/goal of >/= 150 minutes/week moderate-intensity aerobic exercise. Asked to keep detailed food diary for at least 1 week and bring to next visit. Assessment & Plan (04/20/2018 10:39 PM CDT): Reviewed calorie restriction based on BMR as previously detailed. Reviewed recommendation/goal of >/= 150 minutes/week moderate-intensity aerobic exercise. Assessment & Plan (03/17/2018 3:23 PM CDT): Discussed that weight loss will require calorie deficit. Calculated basal metabolic rate and estimated total energy expenditure; discussed 500-1000 kcal/day deficit to lose 1-2 lb per week. Asked to keep detailed food diary for at least 1 week and bring to next visit. Discussed relatively small, although significant, role of exercise in weight loss; greater importance in weight maintenance. Benign essential HTN 03/17/2018 Assessment & Plan (04/20/2018 10:44 PM CDT): BP in better range this visit. Continue current Rx. Reviewed role of diet, exercise, weight loss in controlling blood pressure. Recommended low sodium/DASH diet. Continue current medications. Assessment & Plan (03/17/2018 3:30 PM CDT): Hypertension is not ideally controlled -- BP elevated today.. Reviewed role of diet, exercise, weight loss in controlling blood pressure. Recommended low sodium/DASH diet. Continue current medications. F/U PCP. Abnormal mammogram 01/23/2018 Breast calcifications on mammogram 01/23/2018 Morbid obesity with BMI of 50.0-59.9, adult 01/2018 Family history of diabetes mellitus 01/17/2018 Fibrocystic disease of breast 01/17/2018 Vitamin D deficiency 01/17/2018 Polyp of vocal cord 01/17/2018 Uterine leiomyoma 01/17/2018 Class 3 severe obesity due t o excess calories with serious comorbidity and body mass index (BMI) of 50.0 to 59.9 in adult 08/10/2017 Assessment & Plan (08/27/2018 4:25 PM COLORED LEATHER SETTER): Obesity is improving with treatment. Behavioral treatment: Again discussed counseling and recommended [facility].. Diet interventions: as noted. Regular aerobic exercise program discussed. Assessment & Plan (07/17/2018 1:54 PM COLORED LEATHER SETTER): Obesity is unchanged. Behavioral treatment: have suggested counseling. Diet interventions: as noted. Regular aerobic exercise program discussed. Pharmacotherapy as ordered. Assessment & Plan (05/13/2018 9:17 PM CDT): Obesity is improving with treatment. General weight loss/lifestyle modification strategies discussed (elicit support from others; identify saboteurs; non-food rewards, etc). Regular aerobic exercise program discussed. Pharmacotherapy as ordered. Briefly discussed other medication options -- she prefers to avoid if possible. Assessment & Plan (04/20/2018 10:42 PM CDT): Obesity is improving with treatment. General weight loss/lifestyle modification strategies discussed (elicit support from others; identify saboteurs; non-food rewards, etc). Diet interventions: diet diary indefinitely and as noted.. Regular aerobic exercise program discussed. Pharmacotherapy as ordered. Assessment & Plan (03/17/2018 3:28 PM CDT): Obesity is worsening. Detailed recommendations pending review of labs and food diary. General weight loss/lifestyle modification strategies discussed (elicit support from others; identify saboteurs; non-food rewards, etc). Informal exercise measures discussed, e.g. taking stairs instead of elevator. Regular aerobic exercise program discussed. Assessment & Plan (08/10/2017 6:43 PM COLORED LEATHER SETTER): An optimal BMI (body mass index) is between 20 and 25. Encourage weight loss. Each pound of weight lost unloads 3-4 pounds per square inch pressure from weight bearing joints. Diet and exercise are the keys to weight management. Scleritis and episcleritis of both eyes 08/10/20 17 Assessment & Plan (08/10/2017 6:43 PM COLORED LEATHER SETTER): Patient referred by ophthalmology ( Dr. Broderick Marcelino) for rheumatology consultation after noting elevated CRP associated with recurrent episcleritis/scleritis. She has long history of musculoskeletal complaints (predominantly knees) with documented severe osteoarthritis R>L. She has been treated by orthopedic surgery with steroid and hyaluronate therapies and advised to be a candidate for total knee replacement, but only if she successfully loses weight. She does not give a history suggestive of inflammatory arthritis. She has had previous hyperparathyroidism (with parathyroidectomy) in the past. She has recently developed episode scleritis left eye which she is self-medicating with left-over steroid eye drops, having not yet returned to Dr. Marcelino. Will obtain lab and imaging as per orders to search for systemic inflammatory disease associated with her eye issues. Further management plans pend above. The role of systemic immunosuppressive therapies in the absence of a primary rheumatologic diagnosis will be discussed with Dr. Marcelino pend data review. Obstructive sleep apnea 08/10/2017 Assessment & Plan (11/09/2021 3:38 PM CDT): The patient will continue with CPAP therapy at 7 cm water pressure. The patient did receive a full set of supplies and an F 30 mask order. DME [facility]. Patient is benefitting from CPAP Assessment & Plan (09/07/2021 3:33 PM COLORED LEATHER SETTER): Due to the burning in the chest whenever the patient's putting on her CPAP I will decrease the patient's CPAP pressure to 7 cm water pressure while sleeping. Her DME is [facility]. Assessment & Plan (06/20/2021 4:17 PM CDT): The patient will continue with CPAP therapy at 8 cm water pressure to treat obstructive sleep apnea. I have ordered the patient a new CPAP card set at 8 cm water pressure. DME [facility]. Patient is benefitting from CPAP therapy. Assessment & Plan (03/17/2018 3:30 PM CDT): Discussed comorbidities associated with sleep apnea and stressed importance of adequate treatment if present. History of hyperparathyroidism 08/10/2017 Assessment & Plan (08/10/2017 6:43 PM COLORED LEATHER SETTER): Noted. Calcium pend. Chronic laryngitis 02/07/2017 Laryngeal cyst 01/10/2017 Primary osteoarthritis of both knees 03/17/2016 Abnormal glucose 03/01/2016 Low ferritin level 03/01/2016 Low vitamin B12 level 03/01/2016 Arthritis 12/31/2015 Left ventricular hypertrophy 12/31/2015 Mitral valve prolapse 12/31/2015 Osteoarthritis 12/31/2015 Right heart failure 12/31/2015 Cystic fibrosis 12/31/2015 Hyperglycemia 10/10/2015 Other specified disorders of veins 10/10/2015 Personal history of other medical treatment 09/21 Postprocedural hypoparathyroidism 10/10/2015 Varicose veins of lower extremity 10/10/2015 Encounters Date Type Department Care Team Description 02/24/2025 9:20 AM CDT Lab [facility] [address] [place] [id number] from Last 3 Months Immunizations Immunization Administration Dates Next Due DTP 09/12/1991, 2,12/25/1980,1979,01/29/1980 MMR 09/12/1991 OPV 12/25/1986, 2,05/11/1980,1979 Pfizer SARS-CoV-2 Monovalent Vaccination (12+ Yrs) PURPLE 11/15/2020 Rubella 03/03/1980 Td, Unspecified 05/10/2018 Tdap 05/10/2018,05/09/2018 Surgical History Surgery Date Site/Laterality Comments CHOLECYSTECTOMY 08/20/1997 - 08/19/1998 BREAST BIOPSY Right x5 - 1998, 2008 PARATHYROIDECTOMY VOCAL FOLD LESION EXCISION 08/20/2016 - 08/19/2017 BREAST BIOPSY 03/26/2018 Right REPLACEMENT TOTAL KNEE BILATERAL [facility] l Medical History Medical History Date Comments Macular degeneration Anemia Transfusion Joint swelling bilateral knees Joint pain History of stomach ulcers Sleep apnea Metabolic and nutritional disorder 04/20/2018 Allergic rhinitis Cataracts, bilateral Hypertension Thyroid disease HL (hearing loss) GERD (gastroesophageal reflux disease) Colon polyp Asthma Family History Medical History Relation Name Comments Cancer Brother 1 Diabetes Brother 1 Gout Brother 1 Hypertension Brother 1 Diabetes Brother 2 Heart disease Brother 2 Breast cancer Maternal cousin Cancer Mother Cervical cancer Mother Ovarian cancer Mother Prostate cancer Mother's Brother 1 Prostate cancer Mother's Brother 2 Breast cancer Mother's Sister 1 Diabetes Sister 1 Heart disease Sister 1 Relation Name Status Comments Brother 1 Brother 2 Daughter 1 Alive Daughter 2 Alive Father Father's Sister (Age 83) Maternal Grandmother (Age 48) Maternal cousin Alive Mother (Age 48) Mother's Brother 1 Mother's Brother 2 Mother's Brother 3 Mother's Brother 4 Alive Mother's Sister 1 Alive Mother's Sister 2 (Age 42) Mother's Sister 3 (Age 55) Mother's Sister 4 (Age 89) Paternal Grandmother Sister 1 Alive Sister 2 Alive Social History Tobacco Use Types Packs/Day Years Used Date Smoking Tobacco: Never Smokeless Tobacco: Never Tobacco Cessation:Counseling Given: Not Answered Alcohol Use Standard Drinks/Week Comments No 0 [...] on file Legal Sex Female 5:08 PM COLORED LEATHER SETTER Gender Identity Not on file Sexual Orientation Not on file Obstetrics History Para Term AB IAB SAB Ectopic Multiple Livin g Live Births 7 4 3 2 1 4 4 Date Outcome GA Total Labor Labor/2nd/3rd Weight Sex Type Anes PTL Gela A1 A5 Name Clin Para Para Para Para SAB IAB IAB Last Filed Vital Signs Vital Sign Reading Time Taken Comments Blood Pressure 151/73 10/08/2023 12:50 PM COLORED LEATHER SETTER Pulse 58 10/08/2023 12:50 PM COLORED LEATHER SETTER Temperature 36.6 C (97.8 F) 05/05/2022 1:08 PM CDT Respiratory Rate 18 05/05/2022 1:40 PM CDT Oxygen Saturation 98% 10/08/2023 12:50 PM COLORED LEATHER SETTER Inhaled Oxygen Concentration - - Weight 173.7 kg (383 lb) 10/08/2023 12:50 PM COLORED LEATHER SETTER Height 177.8 cm (5' 10) 10/08/2023 12:50 PM COLORED LEATHER SETTER Body Mass Index 54.95 10/08/2023 12:50 PM COLORED LEATHER SETTER Plan of Treatment Health Maintenance Due Date Last Done Comments Colon Cancer Screening-Colonoscopy 1967 Depression Screening 1967 Hepatitis B Screening 1985 Pneumococcal vaccine <65 (1 of 2 - PCV) 1986 Cervical Cancer Screening 08/18/2020 08/18/2019 Regular Well Visit/Exam 18-64 08/25/2021 08/25/2020, 08/18/2019 Breast Cancer Screening-Mammogram 08/03/2024 08/03/2023, 09/07/2022, 07/15/2021, Additional history exists Covid-19 Vaccine (2024-2 6 season) 2025 08/22/2021, 12/10/2020, 11/15/2020 Influenza Vaccine (#1) 2025 08/07/2019, 2017 DTaP/Tdap/Td Vaccine (12 - T d or Tdap) 08/07/2028 08/07/2018, 05/10/2018, 05/10/2018, Additional history exists Hepatitis C Screening Completed 08/10/2017, 014 Zoster Vaccine Completed 05/12/2021, 08/07/2019 Medical Devices Implanted Type Area Ui Software Developer Device Identifier Shelf Expiration Date Model / Serial / Lot Joint Bilateral: Knee Marker Right: Breast Procedures Procedure Name Priority Date/Time Associated Diagnosis Comments EGFR Routine 02/24/2025 9:38 AM CDT DIFFERENTIAL AUTO Routine 02/24/2025 9:3 8 AM CDT OTIS QUALITATIVE WITH REFLEX TO OTIS QUANTITATIVE Routine 02/24/2025 9:38 AM CDT ERYTHROCYTE SEDIMENTATION RATE Routine 02/24/2025 9:38 AM CDT CRP (ACUTE PHASE) Routine 02/24/2025 9:3 8 AM CDT VITAMIN D 25 HYDROXY Routine 02/24/2025 9:38 AM CDT PHOSPHORUS Routine 02/24/2025 9:38 AM CDT PTH Routine 02/24/2025 9:38 AM CDT THYROID FUNCTION CASCADE Routine 02/24/2025 9:38 AM CDT C-PEPTIDE Routine 02/24/2025 9:38 AM CDT HEMOGLOBIN A1C Routine 02/24/2025 9:38 AM CDT MAGNESIUM Routine 02/24/2025 9:38 AM CDT CBC WITH AUTO DIFFERENTIAL Routine 02/24/2025 9:38 AM CDT COMPREHENSIVE METABOLIC PANEL Routine 02/24/2025 9:38 AM CDT SCREENING MAMMOGRAM BILATERAL W SAMEER Schedule Routine, Read Routine (OP Routine) 09/07/2022 8:57 AM COLORED LEATHER SETTER Screening mammogram, encounter for THINPREP IMAGING PAP AND HPV MRNA E6/E7 REFLEX HPV 16,18/45 Routine 08/18/2019 3:01 PM COLORED LEATHER SETTER Well woman exam with routine gynecological exam HEPATITIS C ANTIBODY Routine 08/10/2017 4:03 PM COLORED LEATHER SETTER Scleritis and episcleritis of both eyes from Last 3 Months or Most Recently Relevant to Health Maintenance Results * OTIS ab ql w/rflx to OTIS qn (02/24/2025 9:38 AM CDT) OTIS Negative Comment: Interpretive Data Normal range for OTIS Qualitative Antibody = Negative. 1. OTIS is performed using indirect immunofluorescence against HEp-2 cells 2. OTIS titers are performed on all positive qualitative results. 3. A significantly positive OTIS result is defined as a positive nuclear fluorescence at a titer of 1:80 or greater. 4. 15% of normal people above age 65 have significantly positive OTIS results. 5% or less of normal people age 65 or under have significantly positive OTIS results. Current interpretive data was last revised on 2020. Testing performed by: [facility], [address] [place] [address] Blood 02/24/2025 9:38 AM CDT 02/24/2025 1:18 PM CDT us Radhika Hannon MD LAB BLOOD ORDERABLES Final Result [facility] [address] [facility] [address] Department [place] [address] * eGFR (02/24/2025 9:38 AM CDT) eGFR >90 >=60 mL/min/1. 73 m2 Comment: Interpretive Data Reference Interval Normal >/= 90 mL/min/1.73m2 Mildly decreased* 60 - 89 mL/min/1.73m2 Mildly to moderately decreased 45 - 59 mL/min/1.73m2 Moderately to severely decreased 30 - 44 mL/min/1.73m2 Severely decreased 15 - 29 mL/min/1.73m2 Kidney Failure < 15 mL/min/1.73m2 *Relative to young adult level Estimated glomerular filtration rate is determined by the 2020 CKD-EPI equation recommended by the National Kidney Foundation (A Unifying Approach to GFR Estimation: Recommendations of the NKF-ASK Task Force on Reassessing the Inclusion of Race in Diagnosing Kidney Disease, JASN 202). The CKD-EPI equation should not be used for patients with unstable renal function and has not been validated in children and those over 70. Current interpretive data was last reviewed 2021. Blood 02/24/2025 9:38 AM CDT 02/24/2025 9:45 AM CDT us Radhika Hannon MD LAB BLOOD ORDERABLES Final Result [place] [id number] [facility] Department [place] [address] * Differential, auto (02/24/2025 9:38 AM CDT) Neutrophil abs 2.48 1.50 - 6.50 K/cumm Imm gran abs 0.01 0.00 - 0.10 K/cumm [facility] Lymphocyte abs 1.75 0.80 - 3.30 K/cumm [facility] Monocyte abs 0.40 0.20 - 0.80 K/cumm [facility] Eosinophil abs 0.11 0.00 - 0.50 K/cumm [facility] Basophil abs 0.03 0.00 - 0.10 K/cumm [facility] Neutrophil pct 51.9 % [facility] Comment: Interpretive Data Percent cell count reference ranges are not reported, since discordance with absolute values may lead to misinterpretation of CBC data. Current Interpretive Data was last revised on 2017. Imm gran pct 0.2 % [facility] Comment: Interpretive Data Percent cell count reference ranges are not reported, since discordance with absolute values may lead to misinterpretation of CBC data. Current Interpretive Data was last revised on 2017. Lymphocyte pct 36.6 % [facility] Comment: Interpretive Data Percent cell count reference ranges are not reported, since discordance with absolute values may lead to misinterpretation of CBC data. Current Interpretive Data was last revised on 2017. Monocyte pct 8.4 % [facility] Comment: Interpretive Data Percent cell count reference ranges are not reported, since discordance with absolute values may lead to misinterpretation of CBC data. Current Interpretive Data was last revised on 2017. Eosinophil pct 2.3 % [facility] Comment: Interpretive Data Percent cell count reference ranges are not reported, since discordance with absolute values may lead to misinterpretation of CBC data. Current Interpretive Data was last revised on 2017. Basophil pct 0.6 % [facility] Comment: Interpretive Data Percent cell count reference ranges are not reported, since discordance with absolute values may lead to misinterpretation of CBC data. Current Interpretive Data was last revised on 2017. Blood 02/24/2025 9:38 AM CDT 02/24/2025 9:45 AM CDT Radhika Hannon MD LAB BLOOD ORDERABLES Final Result Performing Organization Address [facility] Co de Phone Number [address] [place] [address] * Thyroid Function Davison (02/24/2025 9:38 AM CDT) Pathologist [facility] TSH 3.16 0.30 - 4.20 mcIUnit/mL Blood 02/24/2025 9:38 AM CDT 02/24/2025 9:45 AM CDT Radhika Hannon MD LAB BLOOD ORDERABLES Final Result Performing Organization Address City/[facility] Co de Phone Number [address] [address] * (ABNORMAL) CBC with auto differential (02/24/2025 9:38 AM CDT) Pathologist [facility] WBC 4.78 3.80 - 9.90 K/cumm Hgb 12.7 11.9 - 15.5 g/dL [facility] Hct 39.6 35.6 - 45.5 % [facility] Plt 163 150 - 400 K/cumm [facility] MPV 11.8 9.1 - 12.3 fL [facility] RBC 4.50 3.90 - 5.20 M/cumm [facility] MCV 88.0 81.3 - 96.4 fL [facility] MCH 28.2 27.1 - 33.3 pg [facility] MCHC 32.1(L) 32.3 - 35.7 g/dL [facility] RDW CV 14.7 11.1 - 14.9 % [facility] RDW SD 47.5 35.7 - 48.1 fL [facility] NRBC abs 0.00 0.00 - 0.01 K/cumm [facility] Blood 02/24/2025 9:38 AM CDT 02/24/2025 9:45 AM CDT Radhika Hannon MD LAB BLOOD ORDERABLES Final Result Performing Organization Address City/[facility] Co de Phone Number [address] [employer] [place] [address] * (ABNORMAL) Vitamin D 25 hydroxy (02/24/2025 9:38 AM CDT) Vitamin D 25-OH 18.0(L) 30.0 - 80.0 ng/mL Blood 02/24/2025 9:38 AM CDT 02/24/2025 9:45 AM CDT Radhika Hannon MD LAB BLOOD ORDERABLES Final Result [address] [place] [address] * C-peptide (02/24/2025 9:38 AM CDT) C-peptide 3.1 1.1 - 4.4 ng/mL Blood 02/24/2025 9:38 AM CDT 02/24/2025 9:45 AM CDT us Radhika Hannon MD LAB BLOOD ORDERABLES Final Result Performing Organization Address [facility]/ZIP Co de Phone Number [address] [place] [address] * Erythrocyte sedimentation rate (02/24/2025 9:38 AM CDT) Pathologist [facility] Erythrocyte sedimentation rate 13 1 - 30 mm/hr Blood 02/24/2025 9:38 AM CDT 02/24/2025 9:45 AM CDT Radhika Hannon MD LAB BLOOD ORDERABLES Final Result Performing Organization Address [facility] Co de Phone Number [address] [place] [address] * (ABNORMAL) CRP (acute phase) (02/24/2025 9:38 AM CDT) [facility] CRP 18.1(H) <=10.0 mg/L Blood 02/24/2025 9:38 AM CDT 02/24/2025 9:45 AM CDT Radhika Hannon MD LAB BLOOD ORDERABLES Final Result Performing Organization Address [facility] Co de Phone Number [address] [place] [address] * Phosphorus (02/24/2025 9:38 AM CDT) Pathologist [facility] Phosphorus, pl 2.7 2.3 - 4.5 mg/dL Blood 02/24/2025 9:38 AM CDT 02/24/2025 9:45 AM CDT Radhika Hannon MD LAB BLOOD ORDERABLES Final Result Performing Organization Address City/[facility] Co de Phone Number [address] [place] [address] * (ABNORMAL) PTH (02/24/2025 9:38 AM CDT) PTH 135(H) 15 - 65 pg/mL Blood 02/24/2025 9:38 AM CDT 02/24/2025 9:45 AM CDT us Radhika Hannon MD LAB BLOOD ORDERABLES Final Result Performing Organization Address [facility] Co de Phone Number [address] [place] [address] * Magnesium (02/24/2025 9:38 AM CDT) Pathologist [facility] Magnesium 2.0 1.4 - 2.5 mg/dL Blood 02/24/2025 9:38 AM CDT 02/24/2025 9:45 AM CDT us Radhika Hannon MD LAB BLOOD ORDERABLES Final Result Performing Organization Address [place] de Phone Number [address] [address] * Hemoglobin A1c (02/24/2025 9:38 AM CDT) [facility] Hgb A1C 5.4 4.0 - 5.6 % Estimated Average Glucose 108 mg/dL [facility] Comment: The ADA recommends reporting an estimated Average Glucose (eAG) with all Hemoglobin A1c results using the equation derived from a study of 507 normal and diabetic adults. Minority populations were underrepresented and children were not included. (Diabetes Care 31:3923-2738, 2008). The eAG is not equivalent to a fasting glucose. Blood 02/24/2025 9:38 AM CDT 02/24/2025 9:45 AM CDT us Radhika Hannon MD LAB BLOOD ORDERABLES Final Result Performing Organization Address [facility] Co de Phone Number [address] [place] [address] * Comprehensive metabolic panel (02/24/2025 9:38 AM CDT) Sodium 144 135 - 145 mmol/L Potassium, pl 4.1 3.3 - 4.9 mmol/L [facility] Chloride 109 97 - 110 mmol/L [facility] CO2 24 22 - 32 mmol/L [facility] Anion gap 11 2 - 15 mmol/L [facility] BUN 15 6 - 25 mg/dL [facility] Creatinine 0.68 0.60 - 1.10 mg/dL [facility] Glucose 103 70 - 199 mg/dL [facility] Comment: Interpretive Data Fasting glucose >/= 126 mg/dl is diagnostic for diabetes. Fasting is defined as no caloric intake for at least 8 hours. Fasting glucose between 100 mg/dl to 125 mg/dl is diagnostic of prediabetes. In a patient with classic symptoms of hyperglycemia or hyperglycemic crisis, a random glucose >/= 200 mg/dl is diagnostic for diabetes. In the absence of unequivocal hyperglycemia, results should be confirmed by repeat testing. The classification and Diagnosis of Diabetes Diabetes Care 2021; 46: S19-S40. Current interpretive data was last revised 2022. Calcium 10.3 8.5 - 10.3 mg/dL [facility] Bilirubin, total 0.4 0.1 - 1.2 mg/dL [facility] Protein, pl 6.7 6.5 - 8.5 g/dL [facility] Albumin 3.8 3.5 - 5.0 g/dL [facility] Alk phos 115 40 - 130 Units/L [facility] ALT 11 7 - 45 Units/L [facility] AST 15 10 - 45 Units/L [facility] Blood 02/24/2025 9:38 AM CDT 02/24/2025 9:45 AM CDT us Radhika Hannon MD LAB BLOOD ORDERABLES Final Result [facility] [address] [facility] Department [place] [address] * Screening Mammogram Bilateral W Sameer (09/07/2022 8:57 AM COLORED LEATHER SETTER) Anatomical Region Laterality Modality Breast Bilateral Mammography Narrative 09/07/2022 9:41 AM COLORED LEATHER SETTER Examination: Screening Mammogram Bilateral W Sameer: 09/07/22 Clinical: Screening mammogram, encounter for. Prior Study Comparisons: Comparison was made to the prior available relevant studies at the time of interpretation. Findings: Bilateral No significant masses, malignant type calcifications, skin thickening, nipple retraction, or significant lymphadenopathy is noted in either breast. The CAD review showed no significant findings. The breasts have scattered areas of fibroglandular density. The patient will be notified of results by letter. Impression: BI-RADS ATLAS category (overall): 1 - Negative There is no mammographic evidence of malignancy. Routine Screening Mammogram in 1 Yr is recommended for bilateral Overall Assessment: 1 - Negative us Self Screening Mammogram IMG MAMMO PROCEDURES Fi nal Result * ThinPrep Imaging Pap and HPV mRNA E6/E7 Reflex HPV 16,18/45 (08/18/2019 3:01 PM COLORED LEATHER SETTER) CLINICAL INFORMATION: Information not provided [facility] - LMP INFORMATION NOT PROVIDED [facility] - Previous Pap INFORMATION NOT PROVIDED [facility] - Prev. Bx INFORMATION NOT PROVIDED [facility] - SOURCE: Information not provided [facility] - Pap, specimen adequacy Satisfactory for evaluation. Endocervical/nunn sformation zone component present. Age and/or menstrual status not provided [facility] - HPV interp Negative for intraepithelial lesion or malignancy. [facility] - COMMENTS This Pap test has been evaluated with computer assisted technology. [facility] - Crna W, CT(ASCP) CT screening location: [place] [address] [facility] - Comment [facility] - Comment: EXPLANATORY NOTE: The Pap is a screening test for cervical cancer. It is not a diagnostic test and is subject to false negative and false positive results. It is most reliable when a satisfactory sample, regularly obtained, is submitted with relevant clinical findings and history, and when the Pap result is evaluated along with historic and current clinical information. Human papillomavirus RNA, High Risk E6/E7 Not Detected Not Detected [facility] - [place] Comment: This test was performed using the APTIMA HPV Assay ([employer] This assay detects E6/E7 viral messenger RNA (mRNA) from 14 high-risk HPV types (16,18,31,33,35,39,45,51,52,56,58,59,66,68). The analytical performance characteristics of this assay have been determined by [facility]. The modifications have not been cleared or approved by the FDA. This assay has been validated pursuant to the CLIA regulations and is used for clinical purposes. Swab 08/18/2019 3:01 PM COLORED LEATHER SETTER 08/19/2019 6:30 AM COLORED LEATHER SETTER Narrative Resulting Agency Comment Performing Organization Information: Site ID: [place] Name: [facility] Address: [address] [place] [address] Director: Avery Ceballos D.O., MPH Site ID: Name: [facility] Address: [address] [place] [address] Director: Gabby Ritter Shiva Godoy DO LAB CYTOLOGY ORDERABLE S Final Result Performing Organization Address City/[facility]/ZIP Co de Phone Number [facility] - [place], [place] [facility] - [place], [place] * Hepatitis C antibody (08/10/2017 4:03 PM COLORED LEATHER SETTER) Hep C Ab Non-Reactiv e Non-Reactiv e [facility] Blood specimen (specimen) 08/10/2017 4:03 PM COLORED LEATHER SETTER 08/10/2017 6:00 PM COLORED LEATHER SETTER Narrative [facility] - 08/10/2017 6:40 PM COLORED LEATHER SETTER Vasquez Alvarez MD LAB MICROBIOLOGY - GENERA L ORDERABLES Final Result Performing Organization Address City/[facility]/ZIP Co de Phone Number [facility] [address] [place] [address] from Last 3 Months or Most Recently Relevant to Health Maintenance Insurance [facility] [place] [address] [employer] Care Teams Bodily Injury Adjuster Relationship Specialty Start Date End Date Radhika Hannon MD [address] [facility] [address] [place] [address] PCP - General Internal Medicine 08/28/24 Ashli Sosa MD Referring Physician Obstetrics and Gynecology 01/23/18
--- OUTSIDE RECORDS SUMMARY | 2025-05-22 00:59 | XMS_ITS | Encounter Summary ---
Author Organization [facility] Address [address] [place] [address] Phone Care Team Providers Care Screw Machine Operator Name Role Phone Ashli Sosa MD Unavailable [phone] Radhika Hannon MD Primary Care Provider [phone] Scot Gibson MD Primary Care Provider [phone] Radhika Hannon MD Primary Care Provider [phone] Encounter Details Date Type Department Care Team (Latest Contact Info) Description 04/12/2018 Orders Only [facility] Scanning, Provider Social History Tobacco Use Types Packs/Day Years Used Date Smoking Tobacco: Never Smokeless Tobacco: Never Alcohol Use Standard Drinks/Week Comments No 0 (1 standard drink = 0.6 oz pur e alcohol) Comments No Sex and Gender Information Value Date Recorded Sex Assigned at Not on file Legal Sex Female 5:08 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 Gender Identity Not on file Sexual Orientation Not on file documented as of this encounter Plan of Treatment Not on file documented as of this encounter Procedures Procedure Name Priority Date/Time Associated Diagnosis Comments SCAN - LABS 04/12/2018 documented in this encounter Results * SCAN - LABS (04/12/2018) us Provider Scanning Final Result documented in this encounter Visit Diagnoses Not on filedocumented in this encounter Additional Health Concerns Infection Onset Date Last Indicated Resolved Time COVID: Suspected 03/04/2022 03/04/2022 03/04/2022 1:17 PM CDT COVID: Suspected 03/13/2022 03/13/2022 03/14/2022 3:05 AM CDT documented as of this encounter Care Teams Screw Machine Operator Relationship Specialty Start Date End Date Radhika Hannon MD [address] [place] [address] PCP - General Internal Medicine 03/14/18 10/09/22 Scot Gibson MD [address] [place] [address] PCP - General Endocrinology Diabetes & Metabolism 10/10/22 08/27/24 Radhika Hannon MD [address] [place] [address] PCP - General Internal Medicine 08/28/24 Ashli Sosa MD Referring Physician Obstetrics and Gynecology 01/23/18 documented as of this encounter
--- OUTSIDE RECORDS SUMMARY | 2025-05-22 00:59 | XMS_ITS | Clinical Summary ---
Author Organization [facility] Address [address] [place] [address] Phone Care Team Providers Care Network Architect Name Role Phone Radhika Hannon MD Primary Care Provider Allergies Active Allergy Reactions Criticality Noted Date Comments Aspirin Nausea and Vomiting,Unknown Low 05/13/2018 Azithromycin Hives High 08/29/2019 Bee Pollen Other (See Comments) 08/29/2019 Reaction: OTHER REACTION, Erythromycin Hives,Itching High 02/24/2016 Iodine Anaphylaxis High 06/18/2019 Penicillins Rash Low 02/24/2016 Povidone-Iodine Other (See Comments) 05/13/2018 BECAUSE OF SHELLFISH ALLERGY Prochlorperazine Shortness of Breath/Wheezing,Unkn own High 08/29/2019 Shellfish Containing Products Other (See Comments) 08/29/2019 Reaction: OTHER REACTION Tetracyclines Hives,Itching,Rash High 02/24/2016 Medications VENTOLIN HFA 90 mcg/actuation inhaler INHALE 2 PUFFS BY MOUTH EVERY 8 HOURS NEEDED 2 06/08/20 19 Active cetirizine (ZyrTEC) 10 mg tablet Take 10 mg by mouth daily at bedtime. 1 05/15/20 19 Active VITAMIN D2 50,000 unit capsule Take 50,000 Units by mouth every 30 days. 0 06/08/20 19 Active furosemide (LASIX) 20 mg tablet Take 20 mg by mouth daily before supper. 0 06/08/20 19 Active timolol maleate (TIMOPTIC) 0.5% solution Administer 1 Drop in both eyes daily. 0 06/09/20 19 Active lisinopril (PRINIVIL) 10 mg tablet Take 10 mg by mouth daily. Active cycloSPORINE (Restasis MultiDose) 0.05 % Drops 1 Drop 2 times daily. Active apixaban (ELIQUIS) 2.5 mg tablet Take 1 Tablet (2.5 mg) by mouth 2 times daily. 60 Tablet 01/27/2020 8:50 AM CDT 01/27/20 20 Active docusate sodium (Colace) 100 mg capsule Take 1 Capsule (100 mg) by mouth 2 times daily. 100 Capsule 1 01/27/20 20 Active oxyCODONE-acetamin ophen (PERCOCET) 5-325 mg tabletIndications: Primary osteoarthritis of right knee Take 1 Tablet by mouth every 4 hours as needed for moderate pain. Max Daily Amount: 6 Tablets 42 Tablet 02/06/2020 2:51 PM CDT 02/06/20 20 Active clindamycin HCL (CLEOCIN) 300 mg Capsule TAKE 3 CAPSULES BY MOUTH 1 HOUR PRIOR TO DENTAL APPOINTMENT 12 Capsule 3 03/24/20 20 Active Active Problems Problem Noted Date Diagnosed Date Status post total bilateral knee replacement Status post total left knee replacement 10/29/19 20 Primary osteoarthritis of left knee 06/27/2019 Primary osteoarthritis of right knee 06/27/2019 Benign hypertension GARY (obstructive sleep apnea) History of hyperparathyroidism Immunizations Immunization Administration Dates Next Due (ADACEL/BOOSTRIX)(10 YR UP) TDAP VACCINE, 0.5ML, IM 05/10/2018 Family History Medical History Relation Name Comments Cancer Mother Relation Name Status Comments Father Mother Social History Tobacco Use Types Packs/Day Years Used Date Smoking Tobacco: Never Smokeless Tobacco: Never Alcohol Use Standard Drinks/Week Comments Never 0 (1 standard drink = 0.6 oz pur e alcohol) Comments No Sex and Gender Information Value Date Recorded Sex Assigned at Not on file Legal Sex Female 12:27 PM CDT Gender Identity Not on file Sexual Orientation Not on file Last Filed Vital Signs Vital Sign Reading Time Taken Comments Blood Pressure 126/53 01/27/2020 11:15 AM CDT Pulse 59 01/27/2020 11:15 AM CDT RN a andrews Temperature 36.8 C (98.3 F) 01/27/2020 11:15 AM CDT Respiratory Rate 14 01/27/2020 11:15 AM CDT Oxygen Saturation 100% 01/27/2020 11:15 AM CDT Inhaled Oxygen Concentration - - Weight 166.9 kg (368 lb) 06/09/2020 1:53 PM CDT Height 175.3 cm (5' 9) 06/09/2020 1:53 PM CDT Body Mass Index 54.34 06/09/2020 1:53 PM CDT Plan of Treatment Health Maintenance Due Date Last Done Comments HEPATITIS B VACCINES (1 of 3 - 19+ 3-dose series) 08/20 HPV/Cotest (21-29) 1988 CERVICAL CANCER SCREENING 1997 HPV/Cotest (30-65) 1997 PAP SMEAR 1997 COLORECTAL SCREENING 2012 Colorectal Cancer Screening 2012 FIT-DNA Q 3 years 2012 FIT/FOBT Q 1 year 2012 Flex Sig/CT Colonography Q 5 years 2012 ZOSTER VACCINE (1 of 2) 2017 BREAST CANCER SCREENING 04/22/2021 04/22/2020 INFLUENZA VACCINE (#1) 2025 DTAP/TDAP/TD VACCINES (2 - Td or Tdap) 05/10/2028 Medical Devices Implanted Type Area Oil Pipeline Dispatcher Device Identifier Shelf Expiration Date Model / Serial / Lot Biomet Bone Cement R Implanted:Qty : 2 on 09/08/2019 by Obey Mann MD at [facility] Cement Left: Knee [employer] 07/19/2023 [id number] / / [id number] Description:REQUISITION # [id number]. Cement Implanted:Qty : 2 on 01/26/2020 by Obey Mann MD at [facility] Cement Right: Knee [employer] 04/18/2024 [id number] / / [id number] Description:REQUISITION # 96 [id number]. Comp Fem Vanguard Cr Interlock Lt 70mm [id number] - [id number] Implanted:Qty : 1 on 09/08/2019 by Obey Mann MD at [facility] Knee Left: Knee RITA [employer] [id number] 07/08/2029 [id number] / / [id number] Patella 3peg Series A [id number] - [id number] Implanted:Qty : 1 on 09/08/2019 by Obey Mann MD at [facility] Knee Left: Knee RITA [employer] [id number] 05/15/2024 [id number] / / [id number] Comp Tib Cocr Finned 83mm [id number] - [id number] Implanted:Qty : 1 on 09/08/2019 by Obey Mann MD at [facility] Knee Left: Knee [employer] 06/11/2029 [id number] / / [id number] Bearing Tib Vanguard Ant Stblzd [id number] - [id number] Implanted:Qty : 1 on 09/08/2019 by Obey Mann MD at [facility] Knee Left: Knee RITA [employer] [id number] 09/09/2023 [id number] / / [id number] Bar Tib Lock [id number] - [id number] Implanted:Qty : 1 on 09/08/2019 by Obey Mann MD at [facility] Knee Left: Knee IRTA BI[employer]ET [id number] 07/28/2029 [id number] / / [id number] Description:REQUISITION # 93 [id number]. Comp Fem Vanguard Cr Interlock Rt 70mm [id number] - [id number] Implanted:Qty : 1 on 01/26/2020 by Obey Mann MD at [facility] Knee Right: Knee RITA BI[employer]ET 2029 [id number] / / [id number] Bearing Vanguard Ant Stab 20x83 [id number] - [id number] Implanted:Qty : 1 on 01/26/2020 by Obey Mann MD at [facility] Knee Right: Knee [employer] 06/15/2020 [id number] / / [id number] Comp Tib Cocr Finned 83mm [id number] - [id number] Implanted:Qty : 1 on 01/26/2020 by Obey Mann MD at [facility] Knee Right: Knee RITA [employer] 10/30/2029 [id number] / / [id number] Patella 3peg Series A [id number] - [id number] Implanted:Qty : 1 on 01/26/2020 by Obey Mann MD at [facility] Knee Right: Knee RITA [employer] 09/29/2024 [id number] / / [id number] Insurance BCBS BLUE ACCESS/TRUE BLUE PPO RX [employer] Commercial RX [employer] Commercial RX [employer] (INTERNAL) [facility] Plans Advance Directives For more information, please contact: [phone] * Full Code (Latest Code Status on File) Date Activated Date Inactivated Comments 01/26/2020 2:38 PM 01/27/2020 7:07 PM * Full Code Date Activated Date Inactivated Comments 01/26/2020 8:35 AM 01/26/2020 2:38 PM * Full Code Date Activated Date Inactivated Comments 09/08/2019 5:59 PM 09/10/2019 5:45 PM * Full Code Date Activated Date Inactivated Comments 09/08/2019 1:01 PM 09/08/2019 5:59 PM Care Teams Network Architect Relationship Specialty Start Date End Date Radhika Hannon MD [address] [place] [address] PCP - General Internal Medicine 06/18/19
--- OUTSIDE RECORDS SUMMARY | 2025-05-22 00:59 | XMS_ITS | Encounter Summary ---
Author Organization [facility] Care Team Providers Care Floral Clerk Name Role Phone Roula Dutton MD Primary Care Provider + [phone] Roula Dutton MD Primary Care Provider + [phone] Rodrigue Munoz MD Primary Care Provider [phone] Ashli Sosa MD Unavailable [phone] Radhika Hannon MD Primary Care Provider + [phone] Scot Gibson MD Primary Care Provider [phone] Radhika Hannon MD Primary Care Provider + [phone] Encounter Details Date Type Department Care Team (Latest Contact Info) Description 01/23/2017 Orders Only [facility] CLINCONV ProviderAriana MD [address] [place] [address] Social History Tobacco Use Types Packs/Day Years Used Date Smoking Tobacco: Never Assessed Comments Unknown Sex and Gender Information Value Date Recorded Sex Assigned at Not on file Legal Sex Female 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 us Historical Provider Final Res ult documented in this encounter Visit Diagnoses Not on filedocumented in this encounter Additional Health Concerns Infection Onset Date Last Indicated Resolved Time COVID: Suspected 03/04/2022 03/04/2022 03/04/2022 1:17 PM CDT COVID: Suspected 03/13/2022 03/13/2022 03/14/2022 3:05 AM CDT documented as of this encounter Care Teams Floral Clerk Relationship Specialty Start Date End Date Roula Dutton MD [address] [place] [address] PCP - General 02/08/17 08/09/17 Roula Dutton MD [address] [place] [address] PCP - General 08/10/17 11/11/17 Rodrigue Munoz MD [address] [place] [address] PCP - General 11/12/17 03/13/18 Radhika Hannon MD [address] [facility] [address] [place], [place] [id number] PCP - General Internal Medicine 03/14/18 10/09/22 Scot Gibson MD [address] [facility] [address] [place] [address] PCP - General Endocrinology Diabetes & Metabolism 10/10/22 08/27/24 Radhika Hannon MD [address] [facility] [address] [place] [address] PCP - General Internal Medicine 08/28/24 Ashli Sosa MD [address] [place] [address] Referring Physician Obstetrics and Gynecology 01/23/18 documented as of this encounter
[2025-05-22 06:00] VITALS: BP 151/72; PULSE 55; RESP 14; TEMP 36.3; O2SAT 98
[2025-05-22] MEDS: ACETAMINOPHEN 500 MG TABLET 1000 MG PO (06:38)
[2025-05-22] MEDS: LACTATED RINGERS 1,000 ML 30 ML IV CONT (06:38)
--- NOTE | 2025-05-22 06:46 | WPDANESEPPF ---
Anes - Initial Pre Proc Eval Procedure: Operation Date: 05/22/25 07:30 Proposed Procedures p Hysteroscopy Dilation and Curettage with Removal of any Endometrial Lesions if Needed - Richard Guzmán MD Date/Time: 05/22/25 06:46 Surgeon: Richard Guzmán MD Pre Op Diagnosis: post menopausal bleeding Patient Data Age: 59 Gender: F Height: 1.78 m Weight: 159 kg Last Vital Signs Temp 36.3 C L 05/22/25 06:00 Pulse 55 L 05/22/25 06:00 Resp 14 05/22/25 06:00 BP 151/72 H 05/22/25 06:00 Pulse Ox 98 05/22/25 06:00 O2 Del Method Room Air 05/22/25 06:00 Allergies Allergy/AdvReac Type Severity Reaction Status Date / Time erythromycin base Allergy Mild Hives Verified 05/11/25 14:51 shellfish derived Allergy Mild Swelling Verified 05/11/25 14:51 Tetracyclines Allergy Mild Itching Verified 05/11/25 14:51 aspirin AdvReac Intermediate Unknown Verified 05/11/25 14:51 Penicillins AdvReac Unknown Unknown Verified 05/11/25 14:51 Home Medications ?Medication ?Instructions ?Recorded ?Confirmed ?Type albuterol sulfate 90 mcg/actuation 1 puff inhalation Q4H PRN Allergy 01/10/22 05/11/25 History aerosol inhaler (Ventolin HFA) Symptoms furosemide 20 mg tablet 20 mg PO QAM 01/10/22 05/11/25 History timolol maleate 0.5 % eye drops 1 drp EACH EYE Q12H 01/10/22 05/11/25 History vitamins A,C,P-hsat-zkfqez 4,296 1 cap PO BID 02/13/22 05/11/25 History mcg-226 mg-90 mg capsule (PreserVision AREDS) pantoprazole 40 mg tablet,delayed 40 mg PO BID 02/15/22 05/11/25 History release losartan 50 mg tablet 50 mg PO DAILY 04/08/25 05/11/25 History cod liver oil 1 cap PO DAILY 05/11/25 05/11/25 History cyclosporine 0.09 % eye drops in a 1 drp EACH EYE TID 05/11/25 05/11/25 History dropperette (Cequa) perfluorohexyloctane (PF) 100 % 1 drp EACH EYE BID 05/11/25 05/11/25 History eye drops (Miebo (PF)) vitamin E 268 mg (400 unit) capsule 268 mg PO DAILY 05/11/25 05/11/25 History Laboratory Tests 05/22/25 06:35 Sodium Pending Potassium Pending Chloride Pending Carbon Dioxide Pending Anion Gap Pending BUN Pending Creatinine Pending Estim Creat Clear Calc Pending Estimated GFR Pending Glucose Pending Calcium Pending Patient hx anesthesia problems: none Family hx anesthesia problems: none Results Review: All pre-operative results and documents have been reviewed as part of the pre-operative evaluation. [facility] Past Medical History Medical History Chronic GERD GARY (obstructive sleep apnea) Morbid obesity with BMI of 50.0-59.9, adult Postmenopausal bleeding History of miscarriage Thyroid disorder Hypertension Arthritis Surgical History Surgical History S/P removal of parathyroid gland [place] teeth extracted Total knee replacement status History of cholecystectomy S/P dilation and curettage H/O breast surgery Family History Family History Other Cervical cancer Diabetes mellitus Hypertension Social History Social History Smoking status: Never smoker Alcohol intake: never Substance use: never Lack of Transportation: No Lack of Food: Never True Current Housing: I Have Housing Concerned About Future Housing: No Difficulty Paying Gas/Electric Bills: No Difficulty Paying for Meds: No Currently Unemployed: No Education: Master's Degree or Higher Difficulty w/ Childcare or Family Care: No Living arrangements: with family Gender identity (if verbalized by the patient): Female Sexual Orientation (if Verbalized by the Patient): Straight or Heterosexual Spiritual care concerns: No Anes - Eval Final PreProcedure Day of Procedure 05/22/25 06:46 Patient weight: morbidly obese Heart: regular rate and rhythm Lungs: clear to auscultation Airway: Mallampati scale class II Neurological: alert and oriented Last oral intake: >/= 8 hours ASA classification: III Emergent: no Anesthetic plan: proceed Anesthesia type and monitoring: general GIVS and standard monitoring Results Review: All pre-operative results and documents have been reviewed as part of the pre-operative evaluation. Informed Consent: The patient's anesthetic plan and its attendant risks and benefits were discussed with the patient/family/POA. Questions were solicited and answers provided to the satisfaction of the patient/family/POA.
[2025-05-22 07:03] LABS: Anion Gap 4 mmol/L (4-12); Blood Urea Nitrogen 17 mg/dL (7-17); Calcium 10.4 mg/dL (8.4-10.2); Carbon Dioxide 28 mmol/L (22-30); Chloride 108 mmol/L (98-107); Estimated CRCL calculation 139 ml/min; Estimated Glomerular Filt Rate > 60; Glucose 99 mg/dL (65-110); Potassium 4.4 mmol/L (3.4-5.0); Sodium 140 mmol/L (137-145)
--- NOTE | 2025-05-22 07:25 | WPDHPUPDATE1 ---
History and Physical Update Update Date/Time: 05/22/25 07:25 History and Physical has been reviewed, including an updated exam of the patient. There are NO changes in the patient's condition. Risks, benefits, and alternatives have been discussed and questions answered. Patient agrees to proceed with procedure.
[2025-05-22] MEDS: ceFAZolin 3 GM/D5W 100 ML 100 ML IVPB (07:28)
[2025-05-22 07:42] VITALS: BMI 51.0
[2025-05-22] MEDS: LIDOCAINE 1% LOCAL INJ 10 ML VIAL INFILTRATE (07:45)
--- NOTE | 2025-05-22 07:50 | S_PTH ---
PATIENT: Carie Bartlett LOC: [facility]#:[id number] AGE/SX: 59/F ROOM: RE05/22/[address]: Richard Guzmán MD : [id number] BED: DIS: 05/22/2025 SPEC #: [id number] RECD: 05/22/25 09:17 STATUS: ANNA RE #: [id number] DANIEL: 05/22/25 07:[address]: Richard Guzmán DEPT: [facility] Surgical RECD BY: Michael Vivar ENTERED: 05/22/25 09:17 SP TYPE: Surgical OTHR DR: Radhika HannonMD Tissues: A - Endometrial Curettings Procedures: Hematoxylin and Eosin Stain Gross and Microscopic Level 4
[2025-05-22 08:16] VITALS: BP 127/57; PULSE 51; RESP 14; O2SAT 98
--- NOTE | 2025-05-22 08:16 | W.PM.PROC2 ---
Procedure Note - Detailed Date of Procedure 05/22/25 Pre-op Diagnosis post menopausal bleeding Post-op Diagnosis Other (1. Postmenopausal bleeding 2. Endometrial polyps) Procedure Performed hysteroscopy with dilation and curettage and removal of endometrial lesions consistent with polyps. Surgeon Richard Guzmán MD Anesthesia MAC and Local Indications Postmenopausal bleeding with biopsy showing polyps Findings uterus sound to 8 cm there were multiple polyps in the cavity and what appeared to be a small calcified fibroid at the posterior mid cavity which was removed the rest of the cavity was atrophic, no tissue with curettage. Description of Procedure After informed consent was obtained patient was taken to the operating room and adequate IV sedation was administered. Attention was turned to the vagina. Speculum was inserted. Single-tooth tenaculum placed on the anterior lip of the cervix. The uterus was sounded to 8 cm. 9 cc of 1% lidocaine was injected at the cervical vaginal interface at the 2, 5, 8, 10 position. The cervix was dilated to an 4 Astudillo dilator. The rest of the dilation was achieved through hydro dilation with the hysteroscope. The hysteroscope was inserted into the cavity. Findings per above. The Aveta instrument was used to remove the polyps also needed to use scissors to remove the embedded fibrotic polyp or fibroid at the mid cavity this was excised completely. The hysteroscope was removed the single-tooth tenaculum was removed hemostasis was noted at the tenaculum site. Sponge count correct. A large amount of insufflation fluid on the floor. The patient taken to recovery in stable condition. Estimated Blood Loss 5 Drains No Packing No Pathology Yes ( endometrial curettings and shavings) Complications No immediate complications Condition Stable Disposition Same day [facility] Billing Surgery - Charge Forward: Surgery Billing
[2025-05-22 08:45] VITALS: BP 116/59; PULSE 44; RESP 14; O2SAT 100
[2025-05-22] MEDS: oxyCODONE HCL (*CRX) 5 MG TAB IR PO (09:11)
[2025-05-22 09:15] VITALS: BP 121/62; PULSE 46; RESP 16
[2025-05-22 09:37] VITALS: BP 148/62; PULSE 45; RESP 16
== END 2025-05-22 09:46 | disposition home or self-care (01) ==
PROVIDERS: Nurse Anesthetist, Certified Registered; PCP Internal Medicine; Visit Provider Obstetrics & Gynecology
PROC: 0U5B8ZZ Destruction of Endometrium, Via Natural or Artificial Opening Endoscopic (ICD-10-PCS; CPT 58563; principal; 2025-05-22 07:30)
DX: N95.0 Postmenopausal bleeding (principal); N84.0 Polyp of corpus uteri; E66.01 Morbid (severe) obesity due to excess calories; Z68.43 Body mass index [BMI] 50.0-59.9, adult
CPT/HCPCS: 58558; 36415; 80048; 88305; A9270; J0690; J2003; J2250; J2405; J2704; J3010; J7120